=== PATIENT | male | born 1950 | race African-American/Black ===

== ENCOUNTER 2021-11-17 16:05 | Emergency (ER) | payer MEDICARE, SELFPAY ==
--- NOTE | ~2021-11-17 | CT_ITS ---
EXAMINATION: CT brain wo con DATE: 11/17/2021 16:42 INDICATION: Headache TECHNIQUE: Computed tomography (CT) of the head was performed without intravenous contrast. Sagittal and coronal reconstructions were performed. The mA was adjusted according to patient size. Iterative reconstruction technique was employed. The dose-length product was 605.33 mGy-cm. COMPARISON: None FINDINGS: Small region of encephalomalacia consistent with chronic infarct in the anterior periventricular righ t frontal lobe most likely involving the anterior body of the corpus callosum along the cephalad tarun in of the anterior horn of the right lateral ventricle. No acute intracranial hemorrhage, acute infar ction or abnormal extra axial fluid collection. There is mild scattered white matter hypoattenuation consistent with chronic small vessel ischemic disease. Symmetric prominence of the sulci consistent w ith mild age-appropriate diffuse cerebral volume loss. Ventricles are normal and symmetric. No mass/m ass effect. Small amount of dystrophic calcific lesion at the bilateral basal ganglia. Intracranial c alcified cerebral atherosclerosis is noted. Changes of bilateral intraocular lens replacement. The or bits, paranasal sinuses and mastoid air cells are normal. Scarring at the scalp near the vertex were there is a small chronic craniotomy defect. IMPRESSION: 1. No acute intracranial process. 2. 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 3. Age-related changes including mild diffuse volume loss and mild scattered white matter hypoattenua tion consistent with chronic small vessel ischemic disease. 4. Old midline posterior parietal craniotomy. Correlate with surgical history. Reviewed, dictated and finalized at location B. IMPRESSION: 1. No acute intracranial process. 2. 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 3. Age-related changes including mild diffuse volume loss and mild scattered wh ite matter hypoattenuation consistent with chronic small vessel ischemic diseas e. 4. Old midline posterior parietal craniotomy. Correlate with surgical history.
[2021-11-17 16:11] VITALS: BP 117/56; PULSE 73; RESP 18; TEMP 36.4; O2SAT 95
--- NOTE | 2021-11-17 16:32 | ED.HA ---
HPI - Headache General Chief Complaint: Headache Stated Complaint: headache x 4 days Time Seen by Provider: 11/17/21 16:17 History of Present Illness HPI Narrative: 71-year-old male presents the emergency room for evaluation of a headache that he has had for 2 days. Patient states that he started taking metolazone on Tuesday for fluid overload around his abdomen, and developed a headache on Tuesday. Patient describes the headache as a squeezing, bandlike sensation. Headache is associated with photophobia, phonophobia, and nausea. Patient denies injury or trauma. Denies taking any medications to alleviate his headache. Patient states headache started gradually. Denies fever. Denies neck pain. Denies unilateral focal deficits Related Data Allergies Allergy/AdvReac Type Severity Reaction Status Date / Time No Known Allergies Allergy Verified 11/17/21 17:15 Review of Systems Review of Systems: CONSTITUTIONAL: Denies fever, chills, or sweats. EYES: Denies visual changes, redness, or discharge. ENT: Denies rhinorrhea, congestion, sore throat, or otalgia. CARDIOVASCULAR: Denies chest pain, palpitations, or edema. RESPIRATORY: Denies cough or dyspnea. GASTROINTESTINAL: Denies abdominal pain, nausea, vomiting, or diarrhea. GENITOURINARY: Denies dysuria or hematuria. SKIN: Denies rash or itching. MUSCULOSKELETAL: Denies back pain, joint pain, or myalgia. NEUROLOGIC: Reports headache, denies meningeal symptoms PSYCHIATRIC: Denies anxiety or depression. [facility] Family History Family History (Updated 02/21/14 @ 07:13 by DOCTOR UNKNOWN) Mother Family history of osteoporosis Family history of cataracts Family history of Alzheimer's disease Social History Social History Smoking status: Never smoker Second hand tobacco smoke exposure: No Alcohol intake: never Exam Narrative: GENERAL: Well-appearing, well-nourished, and in no acute distress. HEAD: Normocephalic, atraumatic. EYES: PERRLA and EOMI. ENT: Nares clear, no rhinorrhea or epistaxis. CHEST: Clear to auscultation. No respiratory distress. No wheezes rales or rhonchi HEART: Regular rate and rhythm. No murmur heard. Normal peripheral pulses. ABDOMEN: Soft, nontender, nondistended, normal active bowel sounds. EXTREMITIES: Normal range of motion. No edema. SKIN: Warm, dry, no rash. NEURO: No focal deficits. Alert and oriented x3. PSYCH: Normal mood and affect. Course Vital Signs Vital signs: Vital Signs Temperature 36.4 C L 11/17/21 16:11 Pulse Rate 73 11/17/21 16:11 Respiratory Rate 18 11/17/21 16:11 Blood Pressure 117/56 L 11/17/21 16:11 Pulse Oximetry 95 11/17/21 16:11 Oxygen Delivery Room Air 11/17/21 16:11 Temperature 36.4 C L 11/17/21 16:11 Pulse Rate 74 11/17/21 17:17 Respiratory Rate 24 H 11/17/21 17:17 Blood Pressure 114/73 11/17/21 17:17 Pulse Oximetry 95 11/17/21 17:17 Oxygen Delivery Room Air 11/17/21 16:11 MDM - Headache MDM Narrative Medical decision making narrative: 71-year-old male presented to the emergency room complaints of frontal headache started gradually couple of days ago. Patient described the pain as a squeezing and bandlike pain. CBC was unremarkable. CMP shows evidence of a kidney insufficiency, and diabetes. Sed rate was normal. CT scan showed no acute intracranial abnormalities. Patient was given a gram of Tylenol and his headache resolved. Will have patient follow-up with his pr specialist. Lab Data Result diagrams: 11/17/21 17:04 11/17/21 17:04 Labs: Lab Results 11/17/21 11/17/21 11/17/21 Range/Units 17:04 17:04 17:20 WBC 4.5 (4.5-10.0) K/mm3 RBC 5.25 (4.6-6.20) M/mm3 Hgb 14.5 (14.0-18.0) g/dL Hct 46.4 (42.0-52.0) % MCV 88.4 (80-100) fl MCH 27.6 (26-34) pg MCHC 31.3 L (32-36) g/dl RDW 13.2 (11.5-14.5) % Plt Count 162 (150-375) k/mm3 MPV 9.8 (7.4-10.4) fl Immature Gran % (Auto)
[2021-11-17 17:09] LABS: Basophils Percent Auto 0.9 % (0.2-1.2); Eosinophils Absolute Auto 0.2 K/mm3 (0-0.3); Eosinophils Percent Auto 4.2 % (0-4.4); Hematocrit 46.4 % (42.0-52.0); Hemoglobin 14.5 g/dL (14.0-18.0); Immature Granulocyte Absolute 0.02 K/mm3 (0.00-0.031); Immature Granulocyte Percent A 0.4 % (0-0.5); Lymphocytes Absolute Auto 1.22 K/mm3 (0.9-3.2); Lymphocytes Percent Auto 26.9 % (18.3-44.2); Mean Corpuscular HGB Conc 31.3 g/dl (32-36); Mean Corpuscular Hemoglobin 27.6 pg (26-34); Mean Corpuscular Volume 88.4 fl (80-100); Mean Platelet Volume 9.8 fl (7.4-10.4); Monocytes Absolute Auto 0.6 K/mm3 (0.1-0.6); Monocytes Percent Auto 12.1 % (2.6-8.5); Neutrophils Absolute Auto 2.5 K/mm3 (1.3-6.7); Neutrophils Percent Auto 55.5 % (45.5-73.1); Platelet Count Result 162 k/mm3 (150-375); Red Blood Count 5.25 M/mm3 (4.6-6.20); Red Cell Distribution Width 13.2 % (11.5-14.5); White Blood Count 4.5 K/mm3 (4.5-10.0)
[2021-11-17] MEDS: ACETAMINOPHEN 500 MG TABLET 1000 MG PO (17:16)
[2021-11-17 17:17] VITALS: BP 114/73; PULSE 74; RESP 24; O2SAT 95
[2021-11-17 17:19] LABS: Alanine Aminotransferase 21 U/L (6-50); Albumin Level 4.5 g/dL (3.5-5.1); Alkaline Phosphatase 61 U/L (38-126); Anion Gap 8 mmol/L (8-16); Aspartate Amino Transferase 33 U/L (17-59); Blood Urea Nitrogen 30 mg/dL (9-20); Calcium 9.8 mg/dL (8.4-10.2); Carbon Dioxide 36 mmol/L (22-30); Chloride 96 mmol/L (98-107); Estimated CRCL calculation 46 ml/min; Estimated Glomerular Filt Rate 49; Glucose 221 mg/dL (65-110); Potassium 4.5 mmol/L (3.4-5.0); Sodium 140 mmol/L (137-145)
[2021-11-17 17:58] LABS: Erythrocyte Sedimentation Rate 20 mm/hr (0-20)
[2021-11-17 18:21] VITALS: BP 132/75; PULSE 97; RESP 18; O2SAT 95
== END 2021-11-17 18:22 | disposition home or self-care (01) ==
PROVIDERS: Emergency Provider Nurse Practitioner Family; PCP Internal Medicine
DX: R51.9 Headache, unspecified (principal)
CPT/HCPCS: 36415; 70450; 80053; 85025; 85652; 99284; A9270

== ENCOUNTER 2021-12-25 11:11 | Outpatient (CLI) | payer MEDICARE, SELFPAY ==
--- NOTE | ~2021-12-25 | XR_ITS ---
EXAMINATION: XR abdomen/kub 1V INDICATION: Constipation, unspecified TECHNIQUE: Supine views of the abdomen were obtained on 3 radiographs. COMPARISON: None FINDINGS: There is a large volume of colonic stool in the transverse and left colon. No dilated loops of bowel are evident. There is mild osteoarthritis of the hips. Severe lower lumbar spondylosis is n oted. IMPRESSION: 1. Constipation. Reviewed, dictated and finalized at location F. IMPRESSION: 1. Constipation.
== END 2021-12-25 11:12 | disposition home or self-care (01) ==
LOC: ANHIMG 11:13
PROVIDERS: PCP Family Medicine; Visit Provider Nurse Practitioner Family
DX: K59.00 Constipation, unspecified (principal)
CPT/HCPCS: 74018

== ENCOUNTER 2022-01-20 00:56 | Day surgery (SDC) | payer MEDICARE, SELFPAY ==
[2022-01-12 14:19] VITALS: BMI 29.7
--- NOTE | 2022-01-19 11:34 | PC.NURSE ---
Pt. history ie. CHF AND EF 23% reviewed with Dr. Guidry anesthesia. No orders received.
--- NOTE | 2022-01-20 09:19 | WPDANESEPPF ---
Anes - Initial Pre Proc Eval Procedure: Operation Date: 01/20/22 10:30 Proposed Procedures p Esophagogastroduodenoscopy & Colonoscopy - Arpan Fuller MD Date/Time: 01/20/22 09:19 Surgeon: Arpan Fuller MD Pre Op Diagnosis: LUQP, constipation, change bowel habits, bloating Patient Data Age: 71 Gender: M Height: 1.88 m Weight: 105 kg Allergies Allergy/AdvReac Type Severity Reaction Status Date / Time latex Allergy Rash Verified 01/20/22 09:23 Home Medications Medication Instructions Recorded Confirmed Type albuterol sulfate 90 mcg/actuation 1 puff inhalation Q4H PRN 12/24/21 01/12/22 History aerosol inhaler (Ventolin HFA) Shortness Of Breath atorvastatin 20 mg tablet 20 mg PO DAILY 12/24/21 01/12/22 History budesonide-formoterol HFA 160 1 inh inhalation BID 12/24/21 01/12/22 History mcg-4.5 mcg/actuation aerosol inhaler (Symbicort) bumetanide 1 mg tablet 1 mg PO BID 12/24/21 01/12/22 History carvedilol 6.25 mg tablet 6.25 mg PO BID 12/24/21 01/12/22 History clopidogrel 75 mg tablet 75 mg PO DAILY 12/24/21 01/20/22 History insulin aspart U-100 100 unit/mL 15 unit subcut BID 12/24/21 01/12/22 History (3 mL) subcutaneous pen (Novolog Flexpen U-100 Insulin aspart) insulin detemir U-100 100 unit/mL 50 unit subcut QPM 12/24/21 01/12/22 History (3 mL) subcutaneous pen (Levemir FlexTouch U-100 Insulin) isosorbide mononitrate 60 mg 60 mg PO DAILY 12/24/21 01/12/22 History tablet,extended release 24 hr latanoprost 0.005 % eye drops 1 drp EACH EYE QPM 12/24/21 01/12/22 History levetiracetam 1,000 mg tablet 1,000 mg PO BID 12/24/21 01/12/22 History lisinopril 10 mg tablet 10 mg PO BID 12/24/21 01/12/22 History meloxicam 7.5 mg tablet 7.5 mg PO DAILY 12/24/21 01/12/22 History metoclopramide HCl 10 mg tablet 10 mg PO TIDWMEAL 12/24/21 01/12/22 History metolazone 2.5 mg tablet 2.5 mg PO DAILY 12/24/21 01/12/22 History prucalopride 2 mg tablet 2 mg PO DAILY 1 month #30 tabs 12/25/21 01/12/22 Rx (Motegrity) spironolactone 25 mg tablet 25 mg PO BID #180 tabs 01/11/22 01/12/22 Rx cholecalciferol (vitamin D3) 50 50 mcg PO DAILY 01/12/22 01/12/22 History mcg (2,000 unit) tablet (Vitamin D3) potassium chloride 20 mEq 20 meq PO BID 01/12/22 01/12/22 History tablet,extended release(part/cryst) (Klor-Con M) tiotropium 2.5 mcg-olodaterol 2.5 1 puff inhalation DAILY PRN 01/12/22 01/12/22 History mcg/actuation mist for inhalation Shortness Of Breath (Stiolto Respimat) Patient hx anesthesia problems: none Family hx anesthesia problems: none Results Review: All pre-operative results and documents have been reviewed as part of the pre-operative evaluation. [facility] Past Medical History Medical History (Updated 01/20/22 @ 09:20 by Ankur Min MD) CHF (congestive heart failure) Constipation COPD (chronic obstructive pulmonary disease) Dementia Dyslipidemia Essential (primary) hypertension IDDM (insulin dependent diabetes mellitus) Obese PERI on CPAP Osteoarthritis Prostate CA Seizures Weight loss Surgical History Surgical History History of back surgery (~2011) History of permanent cardiac pacemaker placement (~2014) S/P TAVR (transcatheter aortic valve replacement) (~2014) Family History Family History Mother Family history of osteoporosis Family history of cataracts Family history of Alzheimer's disease Father Hypertension Sibling Heart problem Unknown Hypertension Social History Social History Smoking status: Never smoker Second hand tobacco smoke exposure: No Alcohol intake: current Substance use: never Substance use type: does not use Living arrangements: with family Gender identity (if verbalized by the patient): Male Sexual Orientation (if Verbalized by the Patient): S
[2022-01-20 09:27] VITALS: BP 162/84; PULSE 103; RESP 18; TEMP 36.6; O2SAT 96
[2022-01-20 09:41] LABS: Glucose Point of Care 226 mg/dl (65-105)
[2022-01-20] MEDS: LACTATED RINGERS 1,000 ML 150 ML IV CONT (09:45)
[2022-01-20] MEDS: GENTAMICIN 80MG/SOD CHL 50 ML 80 MG/50 ML BAG 100 MG IVPB (09:46)
--- NOTE | 2022-01-20 09:47 | SUR.PREOP ---
NOTIFIED DR. RAMOS OF 226 BG. NO NEW ORDERS AT THIS TIME.
[2022-01-20] MEDS: AMPICILLIN 2 GM/NS 100 ML 2 GM/100 ML BAG IVPB (09:55)
--- NOTE | 2022-01-20 10:07 | PM.HPGS ---
History of Present Illness History of Present Illness Consent: Risks, benefits, and alternatives have been discussed and questions answered. Patient agrees to proceed with procedure. Chief complaint: LUQP, constipation, change bowel habits, bloating Narrative: Ceferino Prescott is a 71 year old male Was had a dramatic change in bowel habits. He has also had weight loss, Although he states he has been trying to. He also has chronic discomfort in the upper abdomen. He will rarely see blood in his stools, perhaps once a year. Review of Systems Review of Systems: All systems reviewed & are unremarkable except as noted in HPI and below PMFSH Past Medical History Medical History CHF (congestive heart failure) Constipation COPD (chronic obstructive pulmonary disease) Dementia Dyslipidemia Essential (primary) hypertension IDDM (insulin dependent diabetes mellitus) Obese PERI on CPAP Osteoarthritis Prostate CA Seizures Weight loss Surgical History Surgical History History of back surgery (~2011) History of permanent cardiac pacemaker placement (~2014) S/P TAVR (transcatheter aortic valve replacement) (~2014) Family History Family History Mother Family history of osteoporosis Family history of cataracts Family history of Alzheimer's disease Father Hypertension Sibling Heart problem Unknown Hypertension Social History Social History Smoking status: Never smoker Second hand tobacco smoke exposure: No Alcohol intake: current Substance use: never Substance use type: does not use Living arrangements: with family Gender identity (if verbalized by the patient): Male Sexual Orientation (if Verbalized by the Patient): Straight or Heterosexual Spiritual care concerns: No Agree to blood products: Yes Meds Home Medications and Allergies Home Medications Medication Instructions Recorded Confirmed Type albuterol sulfate 90 mcg/actuation 1 puff inhalation Q4H PRN 12/24/21 01/12/22 History aerosol inhaler (Ventolin HFA) Shortness Of Breath atorvastatin 20 mg tablet 20 mg PO DAILY 12/24/21 01/12/22 History budesonide-formoterol HFA 160 1 inh inhalation BID 12/24/21 01/12/22 History mcg-4.5 mcg/actuation aerosol inhaler (Symbicort) bumetanide 1 mg tablet 1 mg PO BID 12/24/21 01/12/22 History carvedilol 6.25 mg tablet 6.25 mg PO BID 12/24/21 01/12/22 History clopidogrel 75 mg tablet 75 mg PO DAILY 12/24/21 01/20/22 History insulin aspart U-100 100 unit/mL 15 unit subcut BID 12/24/21 01/12/22 History (3 mL) subcutaneous pen (Novolog Flexpen U-100 Insulin aspart) insulin detemir U-100 100 unit/mL 50 unit subcut QPM 12/24/21 01/12/22 History (3 mL) subcutaneous pen (Levemir FlexTouch U-100 Insulin) isosorbide mononitrate 60 mg 60 mg PO DAILY 12/24/21 01/12/22 History tablet,extended release 24 hr latanoprost 0.005 % eye drops 1 drp EACH EYE QPM 12/24/21 01/12/22 History levetiracetam 1,000 mg tablet 1,000 mg PO BID 12/24/21 01/12/22 History lisinopril 10 mg tablet 10 mg PO BID 12/24/21 01/12/22 History meloxicam 7.5 mg tablet 7.5 mg PO DAILY 12/24/21 01/12/22 History metoclopramide HCl 10 mg tablet 10 mg PO TIDWMEAL 12/24/21 01/12/22 History metolazone 2.5 mg tablet 2.5 mg PO DAILY 12/24/21 01/12/22 History prucalopride 2 mg tablet 2 mg PO DAILY 1 month #30 tabs 12/25/21 01/12/22 Rx (Motegrity) spironolactone 25 mg tablet 25 mg PO BID #180 tabs 01/11/22 01/12/22 Rx cholecalciferol (vitamin D3) 50 50 mcg PO DAILY 01/12/22 01/12/22 History mcg (2,000 unit) tablet (Vitamin D3) potassium chloride 20 mEq 20 meq PO BID 01/12/22 01/12/22 History tablet,extended release(part/cryst) (Klor-Con M) tiotropium 2.5 mcg-olodaterol 2.5 1 puff inhalation DAILY PRN
[2022-01-20 10:48] VITALS: BP 128/79; PULSE 77; RESP 22; O2SAT 100
[2022-01-20 10:58] VITALS: BP 106/79; PULSE 77; RESP 21; O2SAT 100
[2022-01-20 11:08] VITALS: BP 131/86; PULSE 80; RESP 22; O2SAT 100
--- NOTE | 2022-01-20 14:29 | SUR.OPER ---
[address] Fuller aware. States will write orders for patient at d/c.
== END 2022-01-20 11:17 | disposition home or self-care (01) ==
PROVIDERS: PCP Family Medicine; Visit Provider Internal Medicine Gastroenterology
PROC: 0DJ08ZZ Inspection of Upper Intestinal Tract, Via Natural or Artificial Opening Endoscopic (ICD-10-PCS; CPT 43235; principal; 2022-01-20 10:30)
DX: R10.13 Epigastric pain (principal); R10.31 Right lower quadrant pain; I50.9 Heart failure, unspecified; K21.9 Gastro-esophageal reflux disease without esophagitis; K29.70 Gastritis, unspecified, without bleeding; R19.4 Change in bowel habit; K64.8 Other hemorrhoids; R14.0 Abdominal distension (gaseous); R10.32 Left lower quadrant pain; J44.9 Chronic obstructive pulmonary disease, unspecified; E11.9 Type 2 diabetes mellitus without complications; G47.33 Obstructive sleep apnea (adult) (pediatric); M19.90 Unspecified osteoarthritis, unspecified site; Z85.9 Personal history of malignant neoplasm, unspecified; Z95.2 Presence of prosthetic heart valve; Z79.4 Long term (current) use of insulin; Z79.51 Long term (current) use of inhaled steroids
CPT/HCPCS: 43239; 45378; 82948; 87081; J0290; J1580; J2704; J7120

== ENCOUNTER 2022-02-09 14:49 | Outpatient (CLI) | payer MEDICARE, SELFPAY ==
[2022-02-09 20:52] LABS: Alanine Aminotransferase 24 U/L (6-50); Albumin Level 4.4 g/dL (3.5-5.1); Alkaline Phosphatase 59 U/L (38-126); Anion Gap 9 mmol/L (8-16); Aspartate Amino Transferase 38 U/L (17-59); Bilirubin,Total 0.7 mg/dL (0.2-1.3); Blood Urea Nitrogen 71 mg/dL (9-20); Calcium 9.7 mg/dL (8.4-10.2); Carbon Dioxide 36 mmol/L (22-30); Chloride 90 mmol/L (98-107); Cholesterol 211 mg/dL (0-200); Estimated Glomerular Filt Rate 25; Glucose 109 mg/dL (65-110); HDL Direct 43 mg/dL; Potassium 5.6 mmol/L (3.4-5.0); Sodium 135 mmol/L (137-145); Triglycerides 258 mg/dL (<150)
[2022-02-09 20:55] LABS: Basophils Absolute Auto 0.1 K/mm3 (0.0-0.1); Basophils Percent Auto 0.9 % (0.2-1.2); Eosinophils Absolute Auto 0.3 K/mm3 (0-0.3); Eosinophils Percent Auto 4.9 % (0-4.4); Hematocrit 37.8 % (42.0-52.0); Hemoglobin 12.1 g/dL (14.0-18.0); Immature Granulocyte Absolute 0.02 K/mm3 (0.00-0.031); Immature Granulocyte Percent A 0.4 % (0-0.5); Lymphocytes Absolute Auto 1.43 K/mm3 (0.9-3.2); Lymphocytes Percent Auto 26.7 % (18.3-44.2); Mean Corpuscular Hemoglobin 27.9 pg (26-34); Mean Corpuscular Volume 87.3 fl (80-100); Monocytes Absolute Auto 0.7 K/mm3 (0.1-0.6); Monocytes Percent Auto 12.3 % (2.6-8.5); Neutrophils Absolute Auto 2.9 K/mm3 (1.3-6.7); Neutrophils Percent Auto 54.8 % (45.5-73.1); Platelet Count Result 169 k/mm3 (150-375); Red Blood Count 4.33 M/mm3 (4.6-6.20); Red Cell Distribution Width 13.6 % (11.5-14.5); White Blood Count 5.4 K/mm3 (4.5-10.0)
[2022-02-09 21:03] LABS: LDL Cholesterol Direct 101 mg/dL
[2022-02-09 21:11] LABS: Creatinine Urine 67.1 mg/dL
[2022-02-09 21:18] LABS: Vitamin D 25 Hydroxy 53.2 ng/mL
[2022-02-09 21:21] LABS: Prostate Specific Antigen 0.2 ng/mL (< OR = 4.0)
[2022-02-09 21:33] LABS: MALB Creatinine Ratio < 8.9 mg/g (0-30); Microalbumin Urine Random < 6.0 mg/L (0-16.7)
[2022-02-09 21:53] LABS: Hemoglobin A1C 9.1 % (<5.7)
== END 2022-02-09 14:50 | disposition home or self-care (01) ==
LOC: ANHGOSHLAB 14:52
PROVIDERS: PCP Family Medicine; Visit Provider Family Medicine
DX: Z00.00 Encounter for general adult medical examination without abnormal findings (principal); I10 Essential (primary) hypertension; E11.9 Type 2 diabetes mellitus without complications; I50.9 Heart failure, unspecified; K31.84 Gastroparesis; R19.4 Change in bowel habit; R56.9 Unspecified convulsions; Z12.5 Encounter for screening for malignant neoplasm of prostate; E78.5 Hyperlipidemia, unspecified; E55.9 Vitamin D deficiency, unspecified; E53.8 Deficiency of other specified B group vitamins
CPT/HCPCS: 36415; 80053; 80061; 82043; 82306; 82607; 83036; 84153; 84443; 85025; G0103

== ENCOUNTER 2022-03-04 10:18 | Outpatient (CLI) | payer MEDICARE, SELFPAY ==
[2022-03-04 19:06] LABS: Appearance Urine Clear (Clear); Bilirubin Urine Negative (Negative); Blood Urine Negative (Negative); Glucose Urine UA Negative (Negative); Ketones Urine Negative (Negative); Leukocyte Esterase Ur Negative LEU/UL (NEGATIVE); Nitrate Urine Negative (Negative); Protein Urine Negative (Negative); Specific Grav Ur 1.015 (1.001-1.035); Urobilinogen Urine 0.2 mg/dL (<2.0)
[2022-03-04 19:07] LABS: Add Urine Microscopic? NO; Color Urine Light Yellow (Yellow)
[2022-03-04 19:55] LABS: Complement C3 122 mg/dL (88-165)
[2022-03-04 19:59] LABS: Albumin Level 4.5 g/dL (3.5-5.1); Anion Gap 13 mmol/L (8-16); Blood Urea Nitrogen 22 mg/dL (9-20); Calcium 9.2 mg/dL (8.4-10.2); Carbon Dioxide 31 mmol/L (22-30); Chloride 97 mmol/L (98-107); Estimated Glomerular Filt Rate 56; Glucose 87 mg/dL (65-110); Phosphorus 3.2 mg/dL (2.5-4.5); Potassium 4.4 mmol/L (3.4-5.0); Sodium 141 mmol/L (137-145)
[2022-03-04 20:01] LABS: Erythrocyte Sedimentation Rate 22 mm/hr (0-20)
[2022-03-04 20:03] LABS: Hematocrit 32.6 % (42.0-52.0); Hemoglobin 10.6 g/dL (14.0-18.0); Mean Corpuscular HGB Conc 32.5 g/dl (32-36); Mean Corpuscular Hemoglobin 28.2 pg (26-34); Mean Corpuscular Volume 86.7 fl (80-100); Mean Platelet Volume 10.6 fl (7.4-10.4); Platelet Count Result 191 k/mm3 (150-375); Red Blood Count 3.76 M/mm3 (4.6-6.20); Red Cell Distribution Width 14.1 % (11.5-14.5); White Blood Count 4.6 K/mm3 (4.5-10.0)
[2022-03-04 21:41] LABS: Creatinine Urine 48.4 mg/dL; Total Protein Urine Random 8 mg/dL; Ur Ttl Prot Creatinine Ratio 0.17 mg/mg (0-0.20)
[2022-03-07 16:34] LABS: Kappa\\Lambda Light Chains 2.48 (0.26-1.65); Lambda Light Chain 13.2 mg/L (5.7-26.3)
[2022-03-09 19:45] LABS: Complement Total CH50 >60 U/mL (31-60)
== END 2022-03-04 10:19 | disposition home or self-care (01) ==
LOC: ANHGOSHLAB 10:22
PROVIDERS: PCP Family Medicine; Visit Provider Internal Medicine Nephrology
DX: R94.4 Abnormal results of kidney function studies (principal)
CPT/HCPCS: 36415; 80069; 81003; 82570; 83883; 84156; 85027; 85652; 86038; 86160; 86162; 86334

== ENCOUNTER → 2022-03-04 10:56 | Outpatient (CLI) | payer MEDICARE, SELFPAY ==
--- NOTE | ~2022-03-04 | US_ITS ---
EXAMINATION: US renal BI DATE: 03/04/2022 12:20 INDICATION: Abnormal result of kidney function. TECHNIQUE: Multiple ultrasound grayscale images of the kidneys were obtained. COMPARISON: None. FINDINGS: The right kidney measures 11.0 x 4.6 x 4.8 cm. The left kidney measures 10.6 x 5.1 x 5.4 cm. The kidn eys demonstrate normal echogenicity. There is no hydronephrosis in either kidney. No stones identifi ed. The bladder appears normal but is incompletely distended which mildly limits evaluation. IMPRESSION: 1. Normal kidneys without hydronephrosis. Reviewed, dictated and finalized at location A.
== END ==
PROVIDERS: PCP Internal Medicine Nephrology; Visit Provider Internal Medicine Nephrology
DX: R94.4 Abnormal results of kidney function studies (principal)
CPT/HCPCS: 76775

== ENCOUNTER 2022-03-09 09:54 | Outpatient (CLI) | payer MEDICARE, SELFPAY ==
[2022-03-14 16:42] LABS: Albumin 37 %; Measured Kappa Chains <1.00 mg/dL (<2.00); Measured Lambda Chains <1.00 mg/dL (<2.00)
== END 2022-03-09 09:55 | disposition home or self-care (01) ==
LOC: ANHLAB 10:04
PROVIDERS: PCP Internal Medicine Nephrology; Visit Provider Internal Medicine Nephrology
DX: A04.8 Other specified bacterial intestinal infections (principal)
CPT/HCPCS: 86335

== ENCOUNTER → 2022-07-08 16:09 | Outpatient (CLI) | payer OTHER, SELFPAY ==
--- NOTE | ~2022-07-08 | XR_ITS ---
XR lumbar spine min 4V DATE: 07/08/2022 16:34 INDICATION: Back pain. History of falling. TECHNIQUE: AP, lateral, bilateral oblique views, coned lateral lumbosacral view COMPARISON: 09/01/2018 CT lumbar spine 12/07/2013 MRI lumbar spine FINDINGS: Diffuse idiopathic skeletal hyperostosis of the thoracic spine. Prominent degenerative santana ges of the dose at the apophyseal joints of the lower lumbar and lumbosacral area with associated gra de 1 anterolisthesis at L4-5. There is minimal degenerative spurring of the lumbar spine. No fracture or bone destruction is eviden t. The lumbar pedicles are intact. No spondylolisthesis. The sacroiliac joints are normal. There is extensive calcification of the abdominal aorta and iliac arteries; no abdominal aortic aneur ysm. IMPRESSION: Diffuse idiopathic skeletal hyperostosis of the thoracic spine Grade 1 anterolisthesis at L4-5 due to degenerative change at the apophyseal joints Reviewed, dictated and finalized at location A. NCIAL ANALYST IMPRESSION: Diffuse idiopathic skeletal hyperostosis of the thoracic spine Grade 1 anterolisthesis at L4-5 due to degenerative change at the apophyseal janina ints
== END ==
PROVIDERS: PCP Family Medicine; Visit Provider Family Medicine
DX: M48.14 Ankylosing hyperostosis [Forestier], thoracic region (principal); M43.06 Spondylolysis, lumbar region; Z51.81 Encounter for therapeutic drug level monitoring
CPT/HCPCS: 72110

== ENCOUNTER 2023-01-11 14:11 | Outpatient (CLI) | payer OTHER, SELFPAY ==
[2023-01-11 20:31] LABS: Basophils Absolute Auto 0.1 K/mm3 (0.0-0.1); Basophils Percent Auto 1.1 % (0.2-1.2); Eosinophils Absolute Auto 0.3 K/mm3 (0-0.3); Eosinophils Percent Auto 6.7 % (0-4.4); Hematocrit 37.1 % (42.0-52.0); Hemoglobin 11.2 g/dL (14.0-18.0); Immature Granulocyte Absolute 0.01 K/mm3 (0.00-0.031); Immature Granulocyte Percent A 0.2 % (0-0.5); Lymphocytes Absolute Auto 1.07 K/mm3 (0.9-3.2); Lymphocytes Percent Auto 22.5 % (18.3-44.2); Mean Corpuscular HGB Conc 30.2 g/dl (32-36); Mean Corpuscular Hemoglobin 27.1 pg (26-34); Mean Corpuscular Volume 89.6 fl (80-100); Mean Platelet Volume 10.7 fl (7.4-10.4); Monocytes Absolute Auto 0.5 K/mm3 (0.1-0.6); Monocytes Percent Auto 10.7 % (2.6-8.5); Neutrophils Absolute Auto 2.8 K/mm3 (1.3-6.7); Neutrophils Percent Auto 58.8 % (45.5-73.1); Platelet Count Result 190 k/mm3 (150-375); Red Blood Count 4.14 M/mm3 (4.6-6.20); Red Cell Distribution Width 12.7 % (11.5-14.5); White Blood Count 4.8 K/mm3 (4.5-10.0)
[2023-01-11 20:49] LABS: Albumin Level 4.2 g/dL (3.5-5.1); Anion Gap 5 mmol/L (8-16); Blood Urea Nitrogen 19 mg/dL (9-20); Calcium 9.5 mg/dL (8.4-10.2); Carbon Dioxide 38 mmol/L (22-30); Chloride 97 mmol/L (98-107); Estimated Glomerular Filt Rate 52; Glucose 198 mg/dL (65-110); Phosphorus 3.9 mg/dL (2.5-4.5); Potassium 3.9 mmol/L (3.4-5.0); Sodium 140 mmol/L (137-145)
[2023-01-11 23:12] LABS: Parathyroid Intact 66.8 pg/mL (7.5-53.5)
== END 2023-01-11 14:12 | disposition home or self-care (01) ==
LOC: ANHGOSHLAB 14:13
PROVIDERS: PCP Family Medicine; Visit Provider Internal Medicine Nephrology
DX: N18.32 Chronic kidney disease, stage 3b (principal)
CPT/HCPCS: 36415; 80069; 83970; 85025

== ENCOUNTER 2023-01-12 08:53 | Outpatient (NON) | payer OTHER, SELFPAY ==
[2023-01-12 15:18] LABS: Creatinine Urine 95.8 mg/dL; Total Protein Urine Random 9 mg/dL; Ur Ttl Prot Creatinine Ratio 0.09 mg/mg (0-0.20)
== END 2023-01-12 08:54 | disposition home or self-care (01) ==
LOC: ANHGOSHLAB 09:05
PROVIDERS: PCP Family Medicine; Visit Provider Internal Medicine Nephrology
DX: N18.32 Chronic kidney disease, stage 3b (principal)
CPT/HCPCS: 82570; 84156

== ENCOUNTER 2023-08-02 14:01 | Outpatient (CLI) | payer OTHER, SELFPAY ==
[2023-08-02 20:06] LABS: Alanine Aminotransferase 17 U/L (6-50); Albumin Level 4.3 g/dL (3.5-5.1); Alkaline Phosphatase 63 U/L (38-126); Anion Gap 4 mmol/L (8-16); Aspartate Amino Transferase 52 U/L (17-59); Bilirubin,Total 0.8 mg/dL (0.2-1.3); Blood Urea Nitrogen 11 mg/dL (9-20); Calcium 10.5 mg/dL (8.4-10.2); Carbon Dioxide 33 mmol/L (22-30); Chloride 102 mmol/L (98-107); Cholesterol 180 mg/dL (0-200); Estimated Glomerular Filt Rate > 60; Glucose 105 mg/dL (65-110); HDL Direct 75 mg/dL; Potassium 4.7 mmol/L (3.4-5.0); Sodium 139 mmol/L (137-145); Triglycerides 120 mg/dL (<150)
[2023-08-02 20:16] LABS: Vitamin D 25 Hydroxy 39.3 ng/mL
[2023-08-02 20:18] LABS: Basophils Absolute Auto 0.1 K/mm3 (0.0-0.1); Basophils Percent Auto 1.1 % (0.2-1.2); Eosinophils Absolute Auto 0.3 K/mm3 (0-0.3); Eosinophils Percent Auto 5.9 % (0-4.4); Hematocrit 43.1 % (42.0-52.0); Hemoglobin 13.1 g/dL (14.0-18.0); Immature Granulocyte Absolute 0.01 K/mm3 (0.00-0.031); Immature Granulocyte Percent A 0.2 % (0-0.5); Lymphocytes Absolute Auto 1.33 K/mm3 (0.9-3.2); Lymphocytes Percent Auto 30.2 % (18.3-44.2); Mean Corpuscular HGB Conc 30.4 g/dl (32-36); Mean Corpuscular Volume 88.9 fl (80-100); Mean Platelet Volume 9.9 fl (7.4-10.4); Monocytes Absolute Auto 0.6 K/mm3 (0.1-0.6); Monocytes Percent Auto 12.5 % (2.6-8.5); Neutrophils Absolute Auto 2.2 K/mm3 (1.3-6.7); Neutrophils Percent Auto 50.1 % (45.5-73.1); Platelet Count Result 217 k/mm3 (150-375); Red Blood Count 4.85 M/mm3 (4.6-6.20); Red Cell Distribution Width 13.7 % (11.5-14.5); White Blood Count 4.4 K/mm3 (4.5-10.0)
[2023-08-02 20:19] LABS: LDL Cholesterol Direct 70 mg/dL
[2023-08-02 20:36] LABS: Prostate Specific Antigen 0.3 ng/mL (< OR = 4.0)
== END 2023-08-02 14:02 | disposition home or self-care (01) ==
LOC: ANHGOSHLAB 14:02
PROVIDERS: PCP Family Medicine; Visit Provider Family Medicine
DX: Z12.5 Encounter for screening for malignant neoplasm of prostate (principal); I10 Essential (primary) hypertension; E78.5 Hyperlipidemia, unspecified; E55.9 Vitamin D deficiency, unspecified; E53.8 Deficiency of other specified B group vitamins; J44.9 Chronic obstructive pulmonary disease, unspecified
CPT/HCPCS: 36415; 80053; 80061; 82306; 82607; 84153; 84443; 85025; G0103

== ENCOUNTER → 2023-08-02 14:15 | Outpatient (CLI) | payer OTHER, SELFPAY ==
--- NOTE | ~2023-08-02 | XR_ITS ---
EXAMINATION: XR thoracic spine 3V DATE: 08/02/2023 14:44 INDICATION: Thoracic back pain TECHNIQUE: AP, lateral and lateral swimmer's views of the thoracic spine were obtained. COMPARISON: None. FINDINGS: Bone alignment is normal. There is no fracture. The vertebral body heights are maintained. There is mild loss of intervertebral disc space height at multiple levels in the thoracic spine. Brid ging anterior endplate osteophytes are noted in the mid and lower thoracic spine. Changes of endolumi nal aortic valve replacement are noted. A dual-lead cardiac pacemaker of the left chest wall ends wit h leads in expected locations. IMPRESSION: 1. Mild to moderate thoracic spondylosis without acute findings. Reviewed, dictated and finalized at location B. AULIC OPERATOR
--- NOTE | ~2023-08-02 | XR_ITS ---
EXAMINATION: XR lumbar spine min 4V DATE: 08/02/2023 14:44 INDICATION: Low back pain TECHNIQUE: Anteroposterior, lateral, and bilateral oblique views of the lumbar spine, and cone-down l ateral view of the lumbosacral junction were obtained. COMPARISON: 07/08/2022 FINDINGS: There are 4 mm of unchanged anterolisthesis of L4 on L5. Vertebral body alignment is otherw ise normal. The vertebral body heights are maintained. There is mild loss of intervertebral disc spac e height throughout the lumbar spine. There is severe bilateral facet joint osteoarthritis at L4-5 an d L5-S1 and moderate facet joint osteoarthritis throughout the remainder of the lumbar spine. Calcifi ed atherosclerosis is noted. There is no fracture. IMPRESSION: 1. Moderate lumbar spondylosis without acute findings or significant interval change. Reviewed, dictated and finalized at location B. ORATE TUTOR IMPRESSION: 1. Moderate lumbar spondylosis without acute findings or significant interval c armen.
== END ==
PROVIDERS: PCP Family Medicine; Visit Provider Family Medicine
DX: M43.06 Spondylolysis, lumbar region (principal); M43.04 Spondylolysis, thoracic region
CPT/HCPCS: 72072; 72110

== ENCOUNTER 2025-02-13 10:54 | Outpatient (CLI) | payer OTHER, SELFPAY ==
--- OUTSIDE RECORDS SUMMARY | 2025-02-12 12:30 | XMS_ITS | Encounter Summary ---
Author Organization [facility] Address [address] [place] [address] Phone Care Team Providers Care Sanitary Plumber Name Role Phone Contreras Robbins MD Unavailable [phone] [facility] MD PhD Unavailable [phone] Santiago Bey MD Primary Care Provider Fransisca Macedo RN Unavailable Unavailabl e Reason for Referral * Cardiology (Routine) - Pending Review Specialty Diagnoses / Procedures Referred By Contac t Referred To Contact Diagnoses CHB (complete heart block) Fitting or adjustment of cardiac pacemaker Procedures DEVICE CHECK [place] [address] [place] [address] [address] [place] [address] Phone: tel: fax: [facility] [address] [place] [address] [facility] [address] [place] [address] [place] [address] Phone: tel: fax: Referral ID Status Reason Start Date Expiration Date V isits Requested Visits Authorized [id number] Pending Review 02/12/2025 03/14/2026 1 1 Reason for Visit * Cardiology (Routine) - Authorized Specialty Diagnoses / Procedures Referred By Contac t Referred To Contact Diagnoses CHB (complete heart block) Fitting or adjustment of cardiac pacemaker Procedures DEVICE CHECK [place] [address] [place] [address] [address] [place] [address] Phone: tel: fax: [facility] [address] [place] [address] [address] [place] [address] [place] [address] Phone: tel: fax: Referral ID Status Reason Start Date Expiration Date V isits Requested Visits Authorized [id number] Authorized 08/14/2024 09/13/2025 12 12 Encounter Details Date Type Department Care Team (Latest Contact Info) Description 02/12/2025 12:30 PM CDT Ancillary Procedure [facility] [address] [place] [address] 8[address] [place] [address] [place] [address] CHB (complete heart block) (Primary Dx); Fitting or adjustment of cardiac pacemaker Social History Tobacco Use Types Packs/Day Years Used Date Smoking Tobacco: Never Smokeless Tobacco: Never Alcohol Use Standard Drinks/Week Comments Yes 1 (1 standard drink = 0.6 oz pur e alcohol) AUDIT-C Answer Date Recorded Q1: How often do you have a drink containing alc ohol? Monthly or less 09/23/2020 Q2: How many drinks containi ng alcohol do you have on a typical day when you are drinking? 1 or 2 09/23/2020 Q3: How often do you have si x or more drinks on one occasion? 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 Gender Identity Not on file Sexual Orientation Not on file documented as of this encounter Plan of Treatment Pending Results Name Type Priority Associated Diagnoses Date /Time DEVICE CHECK - IN OFFICE Cardiac Services Routine CHB (complete heart block) Fitting or adjustment of cardiac pacemaker 02/12/2025 11:24 AM CDT Scheduled Orders Name Type Priority Associated Diagnoses Orde r Schedule DEVICE CHECK - IN OFFICE Cardiac Services Routine CHB (complete heart block) Fitting or adjustment of cardiac pacemaker Expected: 02/12/2026 (Approximate), Expires: 08/15/2026 documented as of this encounter Visit Diagnoses Diagnosis CHB (complete heart block)- Primary Atrioventricular block, complete Fitting or adjustment of cardiac pacemaker Fitting and adjustment of cardiac pacemaker documented in this encounter Care Teams Sanitary Plumber Relationship Specialty Start Date End Date Santiago Bey MD [address] [place] [address] PCP - General Family Practice 01/05/22 Contreras Robbins MD Referring Physician Pulmonary Disease 01/16/19 Allyson Flood MD PhD [address] [place] [address] Consulting Physician Ophthalmology 10/03/20 Fransisca Macedo, RN Registered Nurse Pulmonary Disease 04/06/23 documented as of this encounter
--- OUTSIDE RECORDS SUMMARY | 2025-02-12 13:00 | XMS_ITS | Encounter Summary ---
Author Organization [facility] Address [address] [place] [address] Phone Care Team Providers Care Phototypesetting Equipment Monitor Name Role Phone Contreras Robbins MD Unavailable [phone] [facility] MD PhD Unavailable [phone] Santiago Bey MD Primary Care Provider Fransisca Macedo RN Unavailable Unavailabl e Reason for Visit * Cardiology (Routine) - Authorized Specialty Diagnoses / Procedures Referred By Contac t Referred To Contact Diagnoses CHB (complete heart block) Fitting or adjustment of cardiac pacemaker Procedures DEVICE CHECK - IN OFFICE Samir Cao MD [address] [facility] [address] [place] [id number] Phone: tel: fax: [facility] Medicine Cardiology [address] [facility] 8th [place] [address] [place] [address] Phone: tel: fax: Referral ID Status Reason Start Date Expiration Date V isits Requested Visits Authorized [id number] Authorized 08/14/2024 09/13/2025 12 12 Encounter Details Date Type Department Care Team (Late st Contact Info) Description 02/12/2025 1:00 PM CDT Office Visit [facility] Medicine Cardiology [address] 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 Gender Identity Not on file Sexual Orientation Not on file documented as of this encounter Last Filed Vital Signs Vital Sign Reading Time Taken Comments Blood Pressure 154/81 02/12/2025 12:37 PM CDT Pulse 60 02/12/2025 12:37 PM CDT Temperature - - Respiratory Rate - - Oxygen Saturation 98% 02/12/2025 12:37 PM CDT Inhaled Oxygen Concentration - - Weight 84.6 kg (186 lb 9.6 oz) 02/12/2025 12:37 PM CDT Height 182.9 cm (6') 02/12/2025 12:37 PM CDT Body Mass Index 25.31 02/12/2025 12:37 PM CDT documented in this encounter Patient Instructions * Patient Instructions* Natalie Maher NP - 02/12/2025 1:00 PM CDT Labs today Your device checks out well Continue remote monitoring quarterly Follow up in 6 months with device check, sooner as needed documented in this encounter Ordered Prescriptions Prescription Sig Dispense Quantity Refills Last Filled Start Date End Date amiodarone (PACERONE) 200 mg tablet Take 1 tablet (200 mg total) by mouth daily 30 tablet 5 02/12/2025 08/11/2025 documented in this encounter Progress Notes * Natalie Maher, LAUNCH LEADER - 02/12/2025 1:00 PM CDT Electrophysiology Return Office Visit Patient Name: Ceferino Prescott Date of : 1950 Date of Visit: 02/12/2025 CHIEF COMPLAINT: PVC Ceferino Prescott is a 74 y.o. male who presents today at the [facility] at [facility] in [place] for arrhythmia/device follow up. The patient's info print press operator is Dr. Samir Cao. Mr. Prescott is seen in follow up for complete heart block status post TAVR. He underwent TAVR for severe on 09/02/2016. He developed a left bundle branch block and subsequent complete heart block. A dual-chamber pacemaker was implanted on 09/02/[address] Cao. Echocardiogram 11/18/21 showed an LVEF of 22% despite GDMT (echo 06/2021 showed an LVEF of 35-40%). He was admitted to [facility] in 10/2021 for shortness of breath and headache. He was diuresed, evaluated by neurology, CT imaging indicated no acute changes. MRI was recommended. He is on goal directed therapy. Last EKG showed a QRS of 164 msec. He was seen in clinic on 05/11/22. We had an extended discussion about his risk for sudden cardiac . ICD recommended for primary prevention of sudden cardiac . DIAL MAKER-D would be appropriate inthe setting of HF symptoms and widened QRS. He declined ICD upgrade. He is aware of his sudden cardiac risk. He also declined DIAL MAKER-P upgrade. He reported increased fatigue and exertional dyspnea in the fall 2023. LVEF 30% per TTE 08/30/2023. Holter 03/2024 showed 25% PVC burden. We discussed management options for his PVCs including amiodarone 200 mg daily or catheter ablation. He is not interested in any invasive procedures, but would like to try amiodarone 200 mg daily given increased symptoms of SOB and fatigue. He presents today in follow up with his . His palpitations have improved since starting amiodarone. He continues to report headache as his biggest complaint; he believes it is associated with a new medication started by neurology. He reports stable SOB and occasional palpitations. He denies abdo angeline distention or lower extremity swelling. No near syncope or syncope. Eye exam earlier this month was normal. CURRENT MEDICATIONS: Current Outpatient Medications: albuterol HFA (PROVENTIL HFA,VENTOLIN HFA,PROAIR HFA) 90 mcg/actuation inhaler amiodarone (PACERONE) 200 mg tablet aspirin 81 mg enteric coated tablet atorvastatin (LIPITOR) 20 mg tablet azelastine (ASTELIN) 137 mcg (0.1 %) nasal spray blood glucose diagnostic (IPXuch Ultra Test) strip blood-glucose meter kit bumetanide (BUMEX) 1 mg tablet carvediloL (COREG) 12.5 mg tablet cholecalciferol (VITAMIN D-3) 2000 unit capsule clopidogreL (PLAVIX) 75 mg tablet cyanocobalamin (Vitamin B-12) 1,000 mcg/mL injection dapagliflozin propanediol (FARXIGA) 10 mg tablet ergocalciferol (VITAMIN D) 50,000 unit capsule famotidine (PEPCID) 20 mg tablet fexofenadine (GET) 180 mg tablet isosorbide mononitrate ER (IMDUR) 60 mg 24 hr tablet lamoTRIgine (LaMICtal) 25 mg tablet lancets 30 gauge [facility] latanoprost (XALATAN) 0.005 % ophthalmic solution [facility] keopefxm-pqo-hnajl-vit K-lycop 400-20-300 mcg tablet semaglutide (Ozempic) 2 mg/dose (8 mg/3 mL) pen injector injection Stiolto Respimat 2.5-2.5 mcg/actuation inhaler syringe with needle, safety 1 mL 25 gauge x 5/8 syringe PHYSICAL EXAMINATION: Vitals: 02/12/25 1237 BP: 154/81 BP Location: Left arm Pulse: 60 SpO2: 98% Weight: 84.6 kg (186 lb 9.6 oz) Height: 182.9 cm (6') GENERAL: Alert and oriented, well-nourished, in no acute distress. HEENT: Mucous membranes are moist. Sclera anicteric. LUNGS: Normal effort and respiratory rate. Lungs clear to auscultation bilaterally. HEART: Normal rate, regular rhythm. No murmurs, rubs, or gallops. ABDOMEN: Soft, non-tender, and non-distended. NEUROLOGIC/PSYCH: Alert and oriented x4. Calm and appropriate affect. Grossly normal bilateral motor function and sensation. VASCULAR: Extremities warm and well-perfused. All pulses intact. No edema. SKIN: Left chest wall pacemaker site is well healed LABORATORY/DIAGNOSTICS: Lab Results Component Value Date INR 1.1 11/20/2021 INR 1.1 11/18/2021 INR 1.09 10/11/2016 APTT 34 11/20/2021 APTT 33.7 09/02/2016 APTT 37.0 09/01/2016 Lab Results Component Value Date TROPONINI <0.07 10/05/2012 TROPONINI <0.07 10/04/2012 CKMB 9 (Critical) 09/01/2016 BNP 83 10/11/2016 Lab Results Component Value Date TSH 1.85 06/05/2024 TSH 1.500 08/02/2023 TSH 2.16 11/18/2021 FREET4 1.60 11/18/2021 Lab Results Component Value Date CHOL 191 11/18/2021 TRIG 235 (H) 11/18/2021 HDL 53 11/18/2021 LDLCALC 91 11/18/2021 LDL 45 09/01/2016 EKG 04/09/2024: A-V sequential pacing, QRS 184 ms, QTc 492 ms Device Interrogation 02/12/2025 : Device type: Tse dual chamber pacemaker Battery: 2.3 years Underlying rhythm: Sinus bradycardia, the patient is not dependent AP: 43% LIVESTOCK TRUCKER: 51% AT/AF burden: 0% Atrial lead: Imp 350 ohms, sensing 2.9 mV, capture 0.5 V @ 0.4 ms Right ventricular lead: Imp 460 ohms, sensing >12 mV, capture 1.0 V @ 0.4 ms Lead impedances, sensing, and thresholds are stable. Counters since 08/14/2024 show: no tachyarrhythmias, PVC count <1% No programming changes Transthoracic Echocardiogram 08/30/2023: Technically difficult study w/ markedly limited parasternal views (pectus chest). Mild LV dilation with severe LV systolic dysfunction (LVEF 30%). Indetermiante diastology. Normal RV size and systolic function. Normal atria. Prior TAVR well seated, no AR, and physiologic gradients (MG 8 mmHg). Inadequate TR jet to est RVSP; IVC 1.9 cm w/o resp varition. No pericardial effusion. Normal aortic root and arch. Wire in RV. Compared to TTE 10/2021, mild improvement in LV size and function. MCT 04/05/2024 SCANNING SUMMARY: : *The predominant rhythm was paced with Frequent Ventricular Ectopy. *The Maximum Heart Rate recorded was 185 bpm, 04/13 10:15:00, the Minimum Heart Rate recorded was 54 bpm, 04/15 05:30:57, and the Average Heart Rate was 74 bpm. *There were 77,272 VE beats with a burden of 25 %. There were 141 occurrences of Ventricular Tachycardia with the Fastest episode 185 bpm, 04/13 10:15:00, and the Longest episode 8 beats, 04/14 19:30:25. *There were 46 SVE beats with a burden of <1 %. There was 1 occurrence of Supraventricular Tachycardia with the Fastest episode 113 bpm, 04/15 02:15:20, and the Longest episode 5 beats, 04/15 02:15:20. *Other rhythms in this study include: Ventricular Run. *There was 1 Patient Trigger. INTERPRETATION: : 72 hour study of 309,000 beats. *The predominant rhythm was paced with Frequent Ventricular Ectopy. *The Maximum Heart Rate recorded was 185 bpm, 04/13 10:15:00, the Minimum Heart Rate recorded was 54 bpm, 04/15 05:30:57, and the Average Heart Rate was 74 bpm. *There were 77,272 VE beats with a burden of 25 %. There were 141 occurrences of Ventricular Tachycardia with the Fastest episode 185 bpm, 04/13 10:15:00, and the Longest episode 8 beats, 04/14 19:30:25. *There were 46 SVE beats with a burden of <1 %. There was 1 occurrence of Supraventricular Tachycardia with the Fastest episode 113 bpm, 04/15 02:15:20, and the Longest episode 5 beats, 04/15 02:15:20. *Other rhythms in this study include:polymorphic Ventricular Run at 185 bpm. *There was 1 Patient Trigger with ventricular ectopy Thje 8 beat run of VT is aberrantly conducted beats with slight irregularity I have reviewed the findings on the individual tracings for the dates noted below and I agree, with the above exception regarding the 8 beat run of VT:, The full scanned/data report is available in [employer], labeled MONITOR STRIPS PDF. IMPRESSION AND PLAN: Atrioventricular block, complete (HCC) -Complete heart block post TAVR s/p dual chamber pacemaker 09/02/2016 -Ventricular pacing 51%, not dependent Cardiomyopathy (HCC) -LVEF<35% despite GDMT -He has chronic HFrEF, high ventricular pacing (51%) with QRS duration 184 ms. We discussed DIAL MAKER-D upgrade to primary prevention and cardiac resynchronization. He does not wish to undergo any procedures and continues to decline ICD/DIAL MAKER. -Follow up with Dr Villavicencio Presence of cardiac pacemaker -Dual chamber pacemaker is functioning appropriately as programmed -Lead impedances, sensing, and thresholds are stable -No programming changes -Continue remote monitoring quarterly PVC (premature ventricular contraction) -High burden PVCs - 25% per Holter 03/2024 -Recent increased SOB and fatigue. We discussed management options for his PVCs including amiodarone 200 mg daily or catheter ablation -He is not interested in any invasive procedures but agreed to starting amiodarone 200 mg daily in May 2024 -PVC burden improved on amiodarone (<1% per pacemaker interrogation today) -AST/ALT, TSH today and every 6 months for high risk medication monitoring -QT interval stable, QTc 492 ms -PFTs scheduled with his lock expert in Mar 2025 -Annual eye exams We will plan to see him back 6 months, however we would be happy to see him sooner if needed. DEREK Mathis- CC: Santiago Bey MD [address] [place] [address] [place] [id number] documented in this encounter Miscellaneous Notes * Assessment & Plan Note - Natalie Maher NP - 02/12/2025 2:07 PM CDT Associated Problem(s): PVC (premature ventricular contraction) -High burden PVCs - 25% per Holter 03/2024 -Recent increased SOB and fatigue. We discussed management options for his PVCs including amiodarone 200 mg daily or catheter ablation -He is not interested in any invasive procedures but agreed to starting amiodarone 200 mg daily in May 2024 -PVC burden improved on amiodarone (<1% per pacemaker interrogation today) -AST/ALT, TSH today and every 6 months for high risk medication monitoring -QT interval stable, QTc 492 ms -PFTs scheduled with his lock expert in Mar 2025 -Annual eye exams * Assessment & Plan Note - Natalie Maher NP - 02/12/2025 2:06 PM CDT Associated Problem(s): Presence of cardiac pacemaker -Dual chamber pacemaker is functioning appropriately as programmed -Lead impedances, sensing, and thresholds are stable -No programming changes -Continue remote monitoring quarterly * Assessment & Plan Note - Natalie Maher NP - 02/12/2025 2:06 PM CDT Associated Problem(s): Cardiomyopathy -LVEF<35% despite GDMT -He has chronic HFrEF, high ventricular pacing (51%) with QRS duration 184 ms. We discussed DIAL MAKER-D upgrade to primary prevention and cardiac resynchronization. He does not wish to undergo any procedures and continues to decline ICD/DIAL MAKER. -Follow up with Dr Villavicencio * Assessment & Plan Note - Natalie Maher NP - 02/12/2025 2:03 PM CDT Associated Problem(s): Atrioventricular block, complete (HCC) -Complete heart block post TAVR s/p dual chamber pacemaker 09/02/2016 -Ventricular pacing 51%, not dependent documented in this encounter Plan of Treatment Scheduled Orders Name Type Priority Associated Diagnoses Orde r Schedule Comprehensive metabolic panel Lab Routine CHB (complete heart block) At risk for amiodarone toxicity with retirement use PVC (premature ventricular contraction) Expected: 02/12/2025, Expires: 02/12/2026 Thyroid Function [place] Lab Routine CHB (complete heart block) At risk for amiodarone toxicity with terminal computer operator use PVC (premature ventricular contraction) Expected: 02/15/2025, Expires: 02/12/2026 documented as of this encounter Procedures Procedure Name Priority Date/Time Associated Diagnosis Comments ECG 12-LEAD Routine 02/12/2025 12:33 PM CDT CHB (complete heart block) documented in this encounter Results * ECG 12 lead (02/12/2025 12:33 PM CDT) Natalie Maher NP ECG ORDERABLES Edited Re sult - Final documented in this encounter Visit Diagnoses Diagnosis CHB (complete heart block)- Primary Atrioventricular block, complete At risk for amiodarone toxicity with retirement use PVC (premature ventricular contraction) Other premature beats Other cardiomyopathy Atrioventricular block, complete (HCC) Atrioventricular block, complete Presence of cardiac pacemaker Cardiac pacemaker in situ documented in this encounter Discontinued Medications Medication Sig Discontinue Reason Start Date End Da te amiodarone (PACERONE) 200 mg tablet Take 1 tablet (200 mg total) by mouth daily Reorder 02/05/2025 02/12/2025 documented as of this encounter Care Teams Phototypesetting Equipment Monitor Relationship Specialty Start Date End Date Santiago Bey MD [facility] [place] [address] PCP - General Family Practice 01/05/22 Contreras Robbins MD Referring Physician Pulmonary Disease 01/16/19 Allyson Flood MD PhD [facility] [place] [address] Consulting Physician Ophthalmology 10/03/20 Fransisca Macedo, RN Registered Nurse Pulmonary Disease 04/06/23 documented as of this encounter
--- OUTSIDE RECORDS SUMMARY | 2025-02-13 11:29 | XMS_ITS | Clinical Summary ---
Author Organization [facility] [employer] Address [address] [place] [address] Care Team Providers Care Rag Grader Name Role Phone Cuco Chatman MD Primary Care Provider Aditya Posadas RN Unavailable [phone] Source Comments [facility] [employer],non-owned Affiliates and Associated Physician Practices is amultiple site organization consisting of ambulatory clinics and hospital sitesin [place], [place], [place] and [place]. This disclosure is being madepursuant to the Care Everywhere program and may not contain all information available regarding this patient. Last updated 18.[facility] [employer] Allergies No known active allergies Medications * Be aware that medications may not be up to date on this document. Alwaysverify current medications with the patient. bumetanide (BUMEX) 1 MG tablet Take 3 mg by mouth 2 times daily after meals. Active febuxostat (ULORIC) 40 MG tablet Take 40 mg by mouth once daily. Active hydrocodone 10 MG CAPS cmpd capsule Take 10 mg by mouth 3 times daily as needed for Pain. Active carvedilol (COREG) 3.125 MG tablet Take 3.125 mg by mouth 2 times daily with morning and evening meal. Take one half tab bid Active spironolactone (ALDACTONE) 50 MG tablet Take 50 mg by mouth 2 times daily. Active isosorbide mononitrate CR 24hr (IMDUR) 60 MG tablet Take 60 mg by mouth once daily. Active rosuvastatin (CRESTOR) 20 MG tablet Take 20 mg by mouth once daily. Active hydrALAZINE (APRESOLINE) 100 MG tablet Take 100 mg by mouth 4 times daily. Active Insulin Lispro, Human, (HUMALOG PEN SC) Inject subcutaneous ly. Active Insulin Glargine (LANTUS SC) Inject subcutaneous ly. Active fluticasone-salm eterol (ADVAIR DISKUS) 250-50 MCG/DOSE inhaler Inhale 1 Puff by mouth 2 times daily. Active methocarbamol (ROBAXIN) 750 MG tablet Take 1 Tab by mouth every 8 hours as needed for Muscle Spasms. 40 Tab 1 01/30/2014 Active docusate sodium 100 MG CAPS Take 100 mg by mouth 2 times daily. 01/30/2014 Active polyethylene glycol 3350 (MIRALAX) packet Take 17 g by mouth once daily as needed for Constipation . 01/30/2014 Active piroxicam (FELDENE) 10 MG capsule Take 1 Cap by mouth 2 times daily. 30 Cap 1 01/30/2014 Active Active Problems Problem Noted Date Diagnosed Date DM (diabetes mellitus) HTN (hypertension) Back pain Social History Tobacco Use Types Packs/Day Years Used Date Smoking Tobacco: Never Alcohol Use Standard Drinks/Week Comments Yes 0 (1 standard drink = 0.6 oz pur e alcohol) social Sex and Gender Information Value Date Recorded Sex Assigned at Not on file Legal Sex Male 11:55 AM CDT Gender Identity Not on file Sexual Orientation Not on file Last Filed Vital Signs Vital Sign Reading Time Taken Comments Blood Pressure 133/61 01/30/2014 11:38 AM CDT Pulse 84 01/30/2014 11:38 AM CDT Temperature 36.8 C (98.2 F) 01/30/2014 11:38 AM CDT Respiratory Rate 18 01/30/2014 11:38 AM CDT Oxygen Saturation 97% 01/30/2014 11:38 AM CDT Inhaled Oxygen Concentration - - Weight 129.7 kg (286 lb) 03/18/2014 9:53 AM CDT Height 182.9 cm (6') 03/18/2014 9:53 AM CDT Body Mass Index 38.79 03/18/2014 9:53 AM CDT Plan of Treatment Health Maintenance Due Date Last Done Comments COLOGUARD (AGES 45-75) - COL ON CA SCREENING 1950 COLON MONITORING 1950 COLONOSCOPY - COLON CA SCREENING 1950 CT COLONOGRAPHY - COLON CA SCREENING 1950 Colorectal Cancer Screening 1950 FIT - COLON CA SCREENING 1950 FLEX SIG - COLON CA SCREENING 1950 HEPATITIS C SCREENING 10/20/1970 DTAP/TDAP/TD VACCINES (1 - Tdap) 10/25/1971 PNEUMOCOCCAL VACCINE 50+ (1 of 1 - PCV) 2002 ZOSTER VACCINE (1 of 2) 2002 Respiratory Syncytial Virus (RSV) Vaccine Pt: or over 60 yrs (1 - Risk 60-74 years 1-dose series) 2012 COVID-19 VACCINE (1 - 2023-2 5 season) 2024 DEPRESSION SCREENING 06/27/2024 INFLUENZA VACCINE (#1) 2025 HEPATITIS B VACCINE Aged Out No longe r eligible based on patient's age to complete this topic HIB VACCINE Aged Out No longer eligi ble based on patient's age to complete this topic HPV VACCINE Aged Out No longer eligi ble based on patient's age to complete this topic MENINGOCOCCAL (Group B) VACC INE SHARED DECISION-MAKING Aged Out No longer eligibl e based on patient's age to complete this topic MENINGOCOCCAL GROUPS A/C/Y/W VACCINE Aged Out No longer eligible b ased on patient's age to complete this topic Insurance [employer] Advance Directives * Full Code (Latest Code Status on File) Date Activated Date Inactivated Comments 01/29/2014 12:37 PM 01/30/2014 1:43 PM Care Teams Rag Grader Relationship Specialty Start Date End Date Cuco Chatman MD [address] [place] [address] PCP - General Internal Medicine 01/09/14 Aditya Posadas RN City Planning Aide 01/30/14
--- OUTSIDE RECORDS SUMMARY | 2025-02-13 11:29 | XMS_ITS | Clinical Summary ---
Author Organization [facility] Address [address] [place] [address] Phone Care Team Providers Care Chemical Equipment Repairer Name Role Phone Santiago Bey MD Primary Care Provider Allergies Active Allergy Reactions Criticality Noted Date Comments Latex 03/04/2022 Medications Blood Glucose Monitoring Suppl ([employer] Verio Reflect) w/Device kit USE TO TEST ONCE DAILY 11/06/2021 Active albuterol HFA (PROVENTIL HFA) 108 (90 Base) MCG/ACT inhaler INHALE 1-2 PUFFS BY MOUTH TWICE A DAY 02/22/2022 Active aspirin (ST BARB) 81 MG EC tablet Take 81 mg by mouth daily Active atorvastatin (LIPITOR) 20 MG tablet Take 20 mg by mouth daily 01/12/2019 Active bumetanide (BUMEX) 1 MG tablet Take 1 mg by mouth 2 (two) times a day 12/10/2021 Active carvedilol (COREG) 6.25 MG tablet Take 6.25 mg by mouth 2 (two) times a day with meals 11/26/2021 Active clopidogrel (PLAVIX) 75 MG tablet Take 75 mg by mouth 1 (one) time each day 11/27/2021 Active Cholecalciferol 50 MCG (1999 UT) capsule 2,000 Units Active insulin aspart (NovoLOG) 100 UNIT/ML injection Inject 13 Units under the skin 2 times daily 11/26/2021 Active insulin detemir (Levemir FlexTouch) 100 UNIT/ML injection Inject 40 Units under the skin daily 11/26/2021 Active isosorbide mononitrate (IMDUR) 60 MG 24 hr tablet Take 60 mg by mouth 1 (one) time each day 11/30/2021 Active glucose blood (UserEvents[employer] Verio) test strip USE TO TEST ONCE DAILY 10/31/2021 Active Lancets (OneTouch Delica Plus [id number]) misc USE TO TEST ONCE DAILY 10/31/2021 Active latanoprost (XALATAN) 0.005 % ophthalmic solution INSTILL 1 DROP INTO BOTH EYES EVERY DAY AT NIGHT 12/18/2021 Active levETIRAcetam (KEPPRA) 1000 MG tablet Take 1,000 mg by mouth 2 times daily 03/31/2021 Active lisinopril (PRINIVIL) 10 MG tablet Take 10 mg by mouth 2 (two) times a day 01/14/2022 Active meloxicam (MOBIC) 7.5 MG tablet Take 7.5 mg by mouth daily 04/10/2019 Active metoclopramide (REGLAN) 10 MG tablet TAKE 1 TABLET BY MOUTH THREE TIMES A DAY 1/2 HOUR BEFORE MEALS 01/04/2022 Active metOLazone (ZAROXOLYN) 2.5 MG tablet Take 2.5 mg by mouth 1 (one) time each day 12/09/2021 Active potassium chloride (KLOR-CON M20) 20 MEQ CR tablet Take 20 mEq by mouth daily 11/26/2021 Active spironolactone (ALDACTONE) 25 MG tablet Take 25 mg by mouth 2 (two) times a day 01/11/2022 Active tiotropium-oloda terol (Stiolto Respimat) 2.5-2.5 MCG/ACT aerosol solution inhaler Inhale 2 puffs daily 08/03/2021 Active Active Problems Problem Noted Date Diagnosed Date Chronic kidney disease stage 3B 02/25/2022 Cardiomyopathy 03/09/2021 Complete atrioventricular block 12/20/2017 History of aortic valve replacement 09/29/2016 Overview (03/04/2022): Last Assessment & Plan: History of severe s/p TAVR in 2016. Last TTE in June with increased gradients across AVR however mean only 17 mmHg with peak of 27 mmHg with TY of 1.2 cm2 -Repeat TTE showing stable gradients as per above -continue aspirin, clopidogrel and atorvastatin Aortic valve stenosis 06/08/2016 Chronic obstructive pulmonary disease 03/26/2015 Diabetes mellitus 11/10/2013 Overview (03/04/2022): DMII WO CMP UNCNTRLD Last Assessment & Plan: Stable with no diabetic retinopathy on dilated exam today. Stressed the importance of glycemic control in preventing diabetic eye disease. Hyperlipidemia 11/10/2013 Overview (03/04/2022): MIXED HYPERLIPIDEMIA Hypertension 11/10/2013 Overview (03/04/2022): BENIGN HYPERTENSION Obstructive sleep apnea of adult 11/10/2013 Overview (03/04/2022): Sleep Apnea Seizure 11/10/2013 Overview (03/04/2022): Seizure Last Assessment & Plan: -continue home Keppra Chronic diastolic heart failure 11/09/2010 Diabetic renal disease 04/29/2009 Immunizations Immunization Administration Dates Next Due H1N1 All Forms 06/24/2009 Influenza (IM) Preservative Free 03/27/2009 Influenza Split High Dose Preservative Free IM 1 Influenza, Injectable, Mdck, Preservative Free, Quadrivalt 03/29/2018 Influenza, Unspecified 03/25/2021,04/10/2019 Social History Tobacco Use Types Packs/Day Years Used Date Smoking Tobacco: Never Smokeless Tobacco: Never Alcohol Use Standard Drinks/Week Comments Yes 1 (1 standard drink = 0.6 oz pur e alcohol) Sex and Gender Information Value Date Recorded Sex Assigned at Not on file Legal Sex Male 10:41 AM MDT Gender Identity Not on file Sexual Orientation Not on file Last Filed Vital Signs Vital Sign Reading Time Taken Comments Blood Pressure 122/70 03/04/2022 9:36 AM CDT Pulse 72 03/04/2022 9:36 AM CDT Temperature 36.7 C (98.1 F) 03/04/2022 9:36 AM CDT Respiratory Rate - - Oxygen Saturation - - Inhaled Oxygen Concentration - - Weight 106 kg (233 lb) 03/04/2022 9:36 AM CDT Height 190.5 cm (6' 3) 03/04/2022 9:36 AM CDT Body Mass Index 29.12 03/04/2022 9:36 AM CDT Plan of Treatment Health Maintenance Due Date Last Done Comments Pneumococcal PPSV23/PCV13 65 + Years / Low and Medium Risk (1 of 2 - PCV) 2002 Influenza Vaccine (#1) 2025 , 04/10/2019, 03/29/2018, Additional history exists Insurance [employer] MED[employer]ARE [employer]VANTAGE Care Teams Chemical Equipment Repairer Relationship Specialty Start Date End Date Santiago Bey MD [address] [place] [address] PCP - General Internal Medicine 02/15/22
--- OUTSIDE RECORDS SUMMARY | 2025-02-13 11:29 | XMS_ITS | Encounter Summary ---
Author Organization [facility] Address [address] [place] [address] Phone Care Team Providers Care Tombstone Erector Helper Name Role Phone Cuco Chatman MD Primary Care Provider [phone] Contreras Robbins MD Unavailable [phone] Allyson Flood MD PhD Unavailable [phone] Lenka Quezada FOUR H AGENT Unavailable [phone] Santiago Bey MD Primary Care Provider Fransisca Macedo RN Unavailable Unavailabl e Encounter Details Date Type Department Care Team (Late st Contact Info) Description 12/14/2016 Orders Only [facility] Provider, MD Leigh Ann [address] [place] [id number] Social History Tobacco Use Types Packs/Day Years Used Date Smoking Tobacco: Never Assessed Alcohol Use Standard Drinks/Week Comments No 0 (1 standard drink = 0.6 oz pur e alcohol) Sex and Gender Information Value Date Recorded Sex Assigned at Not on file Legal Sex Male 11:34 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 us Historical Provider [facility] GABE MCMULLEN Final Result documented in this encounter Visit Diagnoses Not on filedocumented in this encounter Additional Health Concerns Infection Onset Date Last Indicated Resolved Time COVID: Suspected 11/18/2021 11/18/2021 11/19/2021 12:04 AM CDT documented as of this encounter Care Teams Tombstone Erector Helper Relationship Specialty Start Date End Date Cuco Chatman MD [address] [place] [address] PCP - General 08/10/16 01/04/22 Santiago Bey MD [address] [facility] [place] [address] PCP - General Family Practice 01/05/22 Contreras Robbins MD [address] [place] [address] Referring Physician Pulmonary Disease 01/16/19 Allyson Flood MD PhD [address] [facility] [place] [address] Consulting Physician Ophthalmology 10/03/20 Lenka Quezada NP [address] [place] [address] Long Term Care Administrator 12/02/21 3 Fransisca Macedo RN Registered Nurse Pulmonary Disease 04/06/23 documented as of this encounter
--- OUTSIDE RECORDS SUMMARY | 2025-02-13 11:29 | XMS_ITS | Clinical Summary ---
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 Name Role Phone Contreras Robbins MD Unavailable [phone] Allyson Flood MD PhD Unavailable [phone] Santiago Bey MD Primary Care Provider Fransisca Macedo RN Unavailable Unavailabl e Allergies Active Allergy Reactions Criticality Noted Date Comments Latex Itching Low 03/04/2022 Medications albuterol HFA (PROVENTIL HFA,VENTOLIN HFA,PROAIR HFA) 90 mcg/actuation inhalerIndicati ons:Chronic Obstructive Pulmonary Disease Inhale 2 puffs every 4 (four) hours as needed for shortness of breath Active aspirin 81 mg enteric coated tabletIndicatio ns:Myocardial Reinfarction Prevention Take 1 tablet (81 mg total) by mouth every morning Active miscellaneous medical supply misc Administer 4 L into affected nostril(s) nightly O2 With CPAP Active cholecalciferol (VITAMIN D-3) 2000 unit capsule 1 capsule (2,000 Units total) Active blood-glucose meter kit USE TO TEST ONCE DAILY 11/07/19 22 Active blood glucose diagnostic (OneTouch Ultra Test) strip USE TO TEST ONCE DAILY 11/01/19 22 Active lancets 30 gauge misc USE TO TEST ONCE DAILY 11/01/19 22 Active semaglutide (Ozempic) 2 mg/dose (8 mg/3 mL) pen injector injection Inject 1 mg under the skin once a week Active atorvastatin (LIPITOR) 20 mg tablet Take 1 tablet (20 mg total) by mouth daily 90 tablet 3 08/30/19 24 Active Stiolto Respimat 2.5-2.5 mcg/actuation inhaler INHALE 2 PUFFS BY MOUTH EVERY DAY 4 g 5 11/14/19 24 Active latanoprost (XALATAN) 0.005 % ophthalmic solution Administer 1 drop into both eyes nightly 7.5 mL 3 03/15/20 24 Active ergocalciferol (VITAMIN D) 50,000 unit capsule 03/22/20 24 Active famotidine (PEPCID) 20 mg tablet Take 1 tablet (20 mg total) by mouth daily 01/24/20 24 Active dapagliflozin propanediol (FARXIGA) 10 mg tablet 1 tablet (10 mg total) Active [id number] lic-vit K-lycop 400-20-300 mcg tablet Take by mouth Active azelastine (ASTELIN) 137 mcg (0.1 %) nasal spray ADMINISTER 1-2 SRRAYS INTO EACH NOSTRIL EVERY DAY AT BEDTIME FOR ALLERGY 09/14/19 25 Active fexofenadine (GET) 180 mg tablet Take 1 tablet (180 mg total) by mouth daily 09/14/19 25 Active bumetanide (BUMEX) 1 mg tablet TAKE 1 TABLET BY MOUTH TWICE A DAY 180 tablet 3 11/23/19 25 Active carvediloL (COREG) 12.5 mg tablet TAKE 1 TABLET BY MOUTH TWICE A DAY WITH FOOD 180 tablet 3 11/23/19 25 Active cyanocobalamin (Vitamin B-12) 1,000 mcg/mL injectionIndica tions:Axonal sensorimotor neuropathy,Neur opathy Inject 1 mL (1,000 mcg total) into the muscle as instructed 3 (three) times a week for 7 days, THEN 1 mL (1,000 mcg total) once a week. Patient is to have injection MWF the first week, then go to weekly injections. 15 mL 01/08/20 25 025 Active syringe with needle, safety 1 mL 25 gauge x 5/8 syringeIndicati ons:Axonal sensorimotor neuropathy,Neur opathy 15 each once a week To be used to administer B12 injection 15 each 01/08/20 25 Active isosorbide mononitrate ER (IMDUR) 60 mg 24 hr tablet TAKE 1 TABLET BY MOUTH EVERY DAY 90 tablet 3 01/11/20 25 Active clopidogreL (PLAVIX) 75 mg tablet TAKE 1 TABLET BY MOUTH EVERY DAY IN THE MORNING 90 tablet 3 02/06/20 25 Active lamoTRIgine (LaMICtal) 25 mg tablet TAKE 1 TAB DAILY FOR 2 WEEKS THEN 2 TABS DAILY FOR 2 WEEKS THEN 4 TABS DAILY FOR 1 WEEK 70 tablet 02/09/20 25 Active amiodarone (PACERONE) 200 mg tablet Take 1 tablet (200 mg total) by mouth daily 30 tablet 5 02/13/20 25 026 Active amiodarone (PACERONE) 200 mg tablet Take 1 tablet (200 mg total) by mouth daily 30 tablet 5 06/05/20 24 025 Discontinued(R eorder) lamoTRIgine (LaMICtal) 25 mg tablet Take 1 tab daily for 2 weeks then 2 tabs daily for 2 weeks then 4 tabs daily for 1 week 70 tablet 11/09/19 25 025 Discontinued amoxicillin 500 mg tablet Take 1 tablet/capsul e (500 mg total) by mouth 11/29/19 25 025 Discontinued amiodarone (PACERONE) 200 mg tablet Take 1 tablet (200 mg total) by mouth daily 30 tablet 5 02/06/20 25 025 Discontinued(R eorder) Active Problems Problem Noted Date Diagnosed Date PVC (premature ventricular contraction) 06/05/20 24 Assessment & Plan (02/12/2025 2:07 PM CDT): -High burden PVCs - 25% per Holter [...] QTc 492 ms -PFTs 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 We discussed management options for his PVCs including amiodarone 200 mg daily or catheter ablation -He is not interested in any invasive procedures but agreed to starting amiodarone 200 mg daily in May 2024 -PVC burden improved on amiodarone (1.3% per pacemaker interrogation today) -AST/ALT, TSH every 6 months (due in 11/2024) -QT interval stable, QTc 494 ms -PFTs scheduled with his decorating machine tender in Mar 2025 Assessment & Plan (06/05/2024 4:22 PM GLASSWARE VERIFIER): -High burden PVCs - 25% per recent Holter 03/2024 -LVEF <35% despite GDMT but he declines ICD for primary prevention of sudden cardiac -Recent increased SOB and fatigue. We discussed management options for his PVCs including amiodarone 200 mg daily or catheter ablation -He is not interested in any invasive procedures, but would like to try amiodarone 200 mg daily given increased symptoms of SOB and fatigue. Risks and potential amiodarone toxicities reviewed with the patient -AST/ALT, TSH today -QT interval normal at baseline, EKG in 1-2 weeks Restrictive lung disease 04/08/2022 Stage 3b chronic kidney disease 02/25/2022 Operculated retinal tear, left eye 12/04/2021 Assessment & Plan (07/01/2022 2:16 PM GLASSWARE VERIFIER): Stable without detachment. No high risk characteristics. The signs and symptoms of retinal detachment were reviewed. Advised urgent evaluation with any onset. Assessment & Plan (12/04/2021 3:41 PM CDT): No SRF. The signs and symptoms of retinal detachment were reviewed. Advised urgent evaluation with any onset. Follow with annual dilated exam. Sooner prn. Headache 11/19/2021 Assessment & Plan (11/25/2021 1:51 PM CDT): Patient presented with severe headache and occasional flashes of light in both eyes (but no visual acuity changes) which began on Tuesday while he was at [employer]. Symptoms improved with PRN Tylenol. Reports no chronic history of headaches. 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 -Neurology consulted (appreciate recs): OSH CT head uploaded to [facility]; s/p Headache cocktail: tylenol 650, compazine 5 q6, 2mg magnesium x 1. -If headache worsens to >5/10 in severity, can load with Depakote 15 mg/kg x1 -continue Keppra 1,000mg BID for history of seizures -no plans for lumbar puncture with resolution of headache -FONG has resolved--appreciate Neurology assistance -Pt will need EP coordinated OP brain MRI because of high risk status -s/p device interrogation performed (see interrogation in chart) -CXR performed and reviewed with no evidence of epicardial leads, abandoned leads, damaged leads, or leads with incompatible extenders or adaptors -Leads are > 6 weeks old -Device battery is not at [facility] -Device is an MRI conditional system and patient is assessed at [facility] -Will notify MRI of risk stratification and timing of scan will be determined by the radiology department; EP will be available by phone at [phone]. -tele Assessment & Plan (11/24/2021 11:07 AM CDT): Patient presented with severe headache and occasional flashes of light in both eyes (but no visual acuity changes) which began on Tuesday while he was at [employer]. Symptoms improved with PRN Tylenol. Reports no chronic history of headaches. 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 -FONG has resolved--appreciate Neurology assistance -Neurology consulted (appreciate recs): OSH CT head uploaded to [facility]; s/p Headache cocktail: tylenol 650, compazine 5 q6, 2mg magnesium x 1. -If headache worsens to >5/10 in severity, can load with Depakote 15 mg/kg x1 -Continue Keppra 1,000mg BID for history of seizures -no plans for lumbar puncture with resolution of headache -Pt will need EP coordinated OP brain MRI because of high risk status -s/p device interrogation performed (see interrogation in chart) -CXR performed and reviewed with no evidence of epicardial leads, abandoned leads, damaged leads, or leads with incompatible extenders or adaptors -Leads are > 6 weeks old -Device battery is not at [facility] -Device is an MRI conditional system and patient is assessed at [facility] -Will notify MRI of risk stratification and timing of scan will be determined by the radiology department; EP will be available by phone at [phone]. -tele Assessment & Plan (11/23/2021 9:59 AM CDT): Patient presented with severe headache and occasional flashes of light in both eyes (but no visual acuity changes) which began on Tuesday while he was at [employer]. Symptoms improved with PRN Tylenol. Reports no chronic history of headaches. 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 -Patient reports that his headache has now improved from a 10/10 to 5/10 -No neurological deficits -Neurology consulted (appreciate recs): OSH CT head uploaded to [facility]; s/p Headache cocktail: tylenol 650, compazine 5 q6, 2mg magnesium x 1. -If headache worsens to >5/10 in severity, can load with Depakote 15 mg/kg x1 -Continue Keppra 1,000mg BID for history of seizures -no plans for lumbar puncture with resolution of headache -ordered brain MRI that will require EP oversight. This may need to be completed in outpatient, will follow up with neuro on 11/23. If unable to complete inpatient, will discuss with neurology setting up outpatient f/u with schedule outpatient brain MRI Electrophysiology consulted regarding MRI compatibility of implantable device -Device interrogation performed (see interrogation in chart) -CXR performed and reviewed with no evidence of epicardial leads, abandoned leads, damaged leads, or leads with incompatible extenders or adaptors -Leads are > 6 weeks old -Device battery is not at [facility] -Device is an MRI conditional system and patient is assessed at [facility] [facility] -Will notify MRI of risk stratification and timing of scan will be determined by the radiology department; EP will be available by phone at [phone]. Assessment & Plan (11/22/2021 12:42 PM CDT): Patient presented with severe headache and occasional flashes of light in both eyes (but no visual acuity changes) which began on Tuesday while he was at [employer]. Symptoms improved with PRN Tylenol. Reports no chronic history of headaches. 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 -Patient reports that his headache has now improved from a 10/10 to 5/10 -No neurological deficits -Neurology consulted (appreciate recs): OSH CT head uploaded to [facility]; s/p Headache cocktail: tylenol 650, compazine 5 q6, 2mg magnesium x 1. -If headache worsens to >5/10 in severity, can load with Depakote 15 mg/kg x1 -Continue Keppra 1,000mg BID for history of seizures -no plans for lumbar puncture with resolution of headache -ordered brain MRI that will require EP oversight. This may need to be completed in outpatient, will follow up with neuro on 11/23 Electrophysiology consulted regarding MRI compatibility of implantable device -Device interrogation performed (see interrogation in chart) -CXR performed and reviewed with no evidence of epicardial leads, abandoned leads, damaged leads, or leads with incompatible extenders or adaptors -Leads are > 6 weeks old -Device battery is not at [facility] -Device is an MRI conditional system and patient is assessed at [facility] -Will notify MRI of risk stratification and timing of scan will be determined by the radiology department; EP will be available by phone at [phone]. Assessment & Plan (11/21/2021 11:40 AM CDT): Patient presented with severe headache and occasional flashes of light in both eyes (but no visual acuity changes) which began on Tuesday while he was at [employer]. Symptoms improved with PRN Tylenol. Reports no chronic history of headaches. 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 -Patient reports that his headache has now improved from a 10/10 to 5/10 -No neurological deficits -Neurology consulted (appreciate recs): OSH CT head uploaded to [facility]; s/p Headache cocktail: tylenol 650, compazine 5 q6, 2mg magnesium x 1. -If headache worsens to >5/10 in severity, can load with Depakote 15 mg/kg x1 -Continue Keppra 1,000mg BID for history of seizures -no plans for lumbar puncture with resolution of headache and no red flags -ordered brain MRI Electrophysiology consulted regarding MRI compatibility of implantable device -Device interrogation performed (see interrogation in chart) -CXR performed and reviewed with no evidence of epicardial leads, abandoned leads, damaged leads, or leads with incompatible extenders or adaptors -Leads are > 6 weeks old -Device battery is not at [facility] -Device is an MRI conditional system and patient is assessed at [facility] -Will notify MRI of risk stratification and timing of scan will be determined by the radiology department; EP will be available by phone at [phone]. Assessment & Plan (11/20/2021 12:21 PM CDT): Patient presented with severe headache and occasional flashes of light in both eyes (but no visual acuity changes) which began on Tuesday while he was at [employer]. Symptoms improved with PRN Tylenol. Reports no chronic history of headaches. 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 -Patient reports that his headache has now improved from a 10/10 to 5/10 -No neurological deficits Neurology consulted, recommending: -Please obtain OSH head CT images (images pushed from OSH to [facility] and nominated for review on 11/20) -Please obtain brain MRI with and without contrast if possible -Headache cocktail: tylenol 650, compazine 5 q6, 2mg magnesium x 1. -If headache worsens to >5/10 in severity, can load with Depakote 15 mg/kg x1. -Continue Keppra 1,000mg BID for history of seizures Electrophysiology consulted regarding MRI compatibility of implantable device -Device interrogation performed (see interrogation in chart) -CXR performed and reviewed with no evidence of epicardial leads, abandoned leads, damaged leads, or leads with incompatible extenders or adaptors -Leads are > 6 weeks old -Device battery is not at [facility] -Device is an MRI conditional system and patient is assessed at [employer] -Will notify MRI of risk stratification and timing of scan will be determined by the radiology department; EP will be available by phone at [phone]. Assessment & Plan (11/19/2021 10:28 AM CDT): Patient presented with 1 week of severe temporal headache and occasional flashes of light but no visual acuity changes which improved with Tylenol. Reports no chronic history of headaches. -Head CT at OSH ([facility]) without any acute changes -Neurology and opthalmology consults today -Plan to obtain CT imaging from OSH but would benefit from MRI. PPM generator and RV lead appear to be MRI conditional but atrial lead is not listed as MRI condition under [facility] website. Will need to touch base with EP -Patient reports that his headache is now improved from a 10/10 to 5/10-no neurological deficits -Tylenol PRN Acute on chronic heart failu re with reduced ejection fraction and diastolic dysfunction 11/18/2021 Assessment & Plan (11/25/2021 3:13 PM CDT): Patient presenting with worsening shortness of breath with no improvement of symptoms with addition of metolazone outpatinet Weight increased by ~10 lbs from dry weight. While his examination is difficult given body habitus, he does not appear to be grossly volume overloaded. Will attempt diuresis given symptoms. -Repeat TTE 11/19 showed LVEF 23%, well-seated bioprosthetic AVR, gradients are stable compared to previous study 23/12 mmHg -Troponin negative, EKG without ischemic changes -COVID swab negative -pt remains euvolemic and hemodynamically stable -bumex and lisinopril resumed yesterday however Cr up to 2.29 today, will hold bumex -continue asa/statin/coreg 6.25mg/plavix -resume spironolactone -Would benefit from SGLT-2 prior to discharge -continue 2gm na diet -I&Os, daily weights, telemetry Assessment & Plan (11/24/2021 11:12 AM CDT): Patient presenting with worsening shortness of breath with no improvement of symptoms with addition of metolazone outpatinet Weight increased by ~10 lbs from dry weight. While his examination is difficult given body habitus, he does not appear to be grossly volume overloaded. Will attempt diuresis given symptoms. -Repeat TTE 11/19 showed LVEF 23%, well-seated bioprosthetic AVR, gradients are stable compared to previous study 23/12 mmHg -Troponin negative, EKG without ischemic changes -COVID swab negative -pt remains euvolemic and hemodynamically stable -will start bumex 1mg PO today and follow volume status/renal fxn closely -increase hydralazine to 50mg TID and titrate up as tolerated -Continue asa/statin/coreg 6.25mg/plavix -lisinopril and aldactone remain on hold -Would benefit from SGLT-2 prior to discharge -possible discharge 11/25 of renal fxn remains stable -continue 2gm na diet -intake and output./daily weights -PT--ambulate in halls today -tele Assessment & Plan (11/23/2021 1:04 PM CDT): Patient presenting with worsening shortness of breath with no improvement of symptoms with addition of metolazone outpatinet. Weight increased by ~10 lbs from dry weight. While his examination is difficult given body habitus, he does not appear to be grossly volume overloaded. Will attempt diuresis given symptoms. -Repeat TTE 11/19 showing LVEF 23%, well seated bioprosthetic AVR, gradients are stable compared to previous study 23/12 mmHg -Troponin negative, EKG without ischemic changes -COVID swab negative -appears euvolemic -s/p IV lasix gtt, holding off diuretics for now with uptrending Cr, anticipate transition to home PO bumex 1mg bid prior to discharge -will give 250cc IVF, monitor BMP -Continue home coreg 6.25 mg BID, holding home lisinopril aldactone 25 mg daily, 5mg for MICHELLE -c/w hydralazine 25mg tid -Would benefit from SGLT-2 prior to discharge Assessment & Plan (11/22/2021 12:25 PM CDT): Patient presenting with worsening shortness of breath with no improvement of symptoms with addition of metolazone outpatinet. Weight increased by ~10 lbs from dry weight. While his examination is difficult given body habitus, he does not appear to be grossly volume overloaded. Will attempt diuresis given symptoms. -Repeat TTE 11/19 showing LVEF 23%, well seated bioprosthetic AVR, gradients are stable compared to previous study 23/12 mmHg -Troponin negative, EKG without ischemic changes -COVID swab negative -appears euvolemic -s/p IV lasix gtt, anticipate transition to home PO bumex 1mg bid tomorrow -Continue home coreg 6.25 mg BID, holding home lisinopril aldactone 25 mg daily, 5mg for MICHELLE -c/w hydralazine 25mg tid -Would benefit from SGLT-2 prior to discharge Assessment & Plan (11/21/2021 12:42 PM CDT): Patient presenting with worsening shortness of breath with no improvement of symptoms with addition of metolazone outpatinet. Weight increased by ~10 lbs from dry weight. While his examination is difficult given body habitus, he does not appear to be grossly volume overloaded. Will attempt diuresis given symptoms. -Repeat TTE 11/19 showing LVEF 23%, well seated bioprosthetic AVR, gradients are stable compared to previous study 23/12 mmHg -Troponin negative, EKG without ischemic changes -COVID swab negative -UOP 1.5, Cr 1.66->1.59, wt 109.5->109.7 -c/w IV lasix 10 mg/hr, will give metolazone 5mg today -Continue home coreg 6.25 mg BID, aldactone 25 mg daily, holding home lisinopril 5mg for MICHELLE. Started hydralazine 25mg tid -Would benefit from SGLT-2 prior to discharge Assessment & Plan (11/20/2021 12:10 PM CDT): Patient presenting with worsening shortness of breath with no improvement of symptoms with addition of metolazone outpatinet. Weight increased by ~10 lbs from dry weight. While his examination is difficult given body habitus, he does not appear to be grossly volume overloaded. Will attempt diuresis given symptoms. -Repeat TTE 11/19 showing LVEF 23%, well seated bioprosthetic AVR, gradients are stable compared to previous study 23/12 mmHg -Troponin negative, EKG without ischemic changes -COVID swab negative -Hemodynamically stable, exam difficult but does not appear grossly overloaded -Continue Lasix 80 mg IV BID -Continue home coreg 6.25 mg BID, lisinopril 5 mg daily, aldactone 25 mg daily -Would benefit from SGLT-2 prior to discharge Assessment & Plan (11/19/2021 10:17 AM CDT): Patient presenting with worsening shortness of breath with no improvement of symptoms with addition of metolazone outpatinet. Weight increased by ~10 lbs from dry weight. While his examination is difficult given body habitus, he does not appear to be grossly volume overloaded. Will attempt diuresis given symptoms. -NT-proBNP -Troponin negative, EKG without ischemic changes -COVID swab negative -Hemodynamically stable, exam difficult but does not appear grossly overloaded -Continue Lasix 80 mg IV BID -Continue home coreg 6.25 mg BID, lisinopril 5 mg daily, aldactone 25 mg daily -Would benefit from SGLT-2 prior to discharge -Plan for repeat TTE to assess TAVR gradients Bilateral posterior capsular opacification 01/21 /2022 Assessment & Plan (09/07/2024 10:30 AM CDT): Some impact on acuity OS but not functionally limiting to pat. Offered yag cap but pt elects observation. Assessment & Plan (09/08/2023 3:34 PM CDT): Stable. Observe. F/u annually. Assessment & Plan (01/10/2023 5:00 PM CDT): Contributing to reduced acuity OS but pt not bothered by it. F/u annually. Assessment & Plan (12/04/2021 3:40 PM CDT): Minimal impact on vision. observe. Assessment & Plan (07/17/2021 11:21 AM GLASSWARE VERIFIER): OS>OD, accounting for visual complaints. yag cap not yet indicated. Will reassess at f/u in 4 mos. Pseudophakia of both eyes 03/13/2021 Assessment & Plan (09/07/2024 10:30 AM CDT): Stable. Observe. Assessment & Plan (03/15/2024 4:11 PM CDT): Stable. Observe. Assessment & Plan (09/08/2023 3:34 PM CDT): Stable. Observe. Assessment & Plan (01/10/2023 5:01 PM CDT): Stable. Observe. Assessment & Plan (12/04/2021 3:43 PM CDT): Stable. Observe. Assessment & Plan (03/13/2021 10:47 AM CDT): Stable. Observe. Cardiomyopathy 03/09/2021 Assessment & Plan (02/12/2025 2:06 PM CDT): -LVEF<35% despite GDMT -He has chronic HFrEF, high ventricular pacing (51%) with QRS duration 184 ms. We discussed AUTOMOTIVE FLEET SUPERVISOR-D upgrade to primary prevention and cardiac resynchronization. He does not wish to undergo any procedures and continues to decline ICD/AUTOMOTIVE FLEET SUPERVISOR. -Follow up with Dr Villavicencio Assessment & Plan (08/14/2024 2:20 PM GLASSWARE VERIFIER): -LVEF<35% despite GDMT, repeatedly declines ICD or AUTOMOTIVE FLEET SUPERVISOR-P upgrade -Follow up with Dr Villavicencio Assessment & Plan (06/05/2024 4:19 PM GLASSWARE VERIFIER): -LVEF<35% despite GDMT, repeatedly declines ICD or AUTOMOTIVE FLEET SUPERVISOR Prostate cancer 11/28/2018 Primary open angle glaucoma (POAG) of both eyes, mild stage 01/03/2018 Assessment & Plan (09/07/2024 10:30 AM CDT): IOP stable on latanoprost qhs OU. OCT overall stable. CPM. F/u in 6 mos for 24-2 VF + IOP ck. Assessment & Plan (03/15/2024 4:11 PM CDT): Stable exam, IOP and VF today. CPM with latanoprost qhs OU. F/u in 6 mos for DFE with RNFL/GCC OCT. Assessment & Plan (09/08/2023 3:34 PM CDT): Iop great on 1 class. OCT stable. CPM with latanoprost qhs OU. F/u in 6 mos for 24-2 VF +IOP ck. Assessment & Plan (01/10/2023 5:01 PM CDT): IOP acceptable on 1 class. VF stable. CPM with latanoprost qhs OU. F/u in 6 mos for DFE with RNFL/GCC OCT. Assessment & Plan (07/01/2022 2:16 PM GLASSWARE VERIFIER): IOP acceptable on 1 class OU. Stable on VF. OCT borderline reliability due to poor signal strength but stable. CPM with latanoprost qhs OU. F/u in 6 months for 24-2 VF + IOP ck. Assessment & Plan (12/04/2021 3:43 PM CDT): IOP excellent on latanoprost qhs OU. CPM. RTC x 6 mos for 24-2 VF + IOP ck. Assessment & Plan (07/17/2021 11:20 AM GLASSWARE VERIFIER): IOP excellent today on 1 class. No e/o progression on OCT. CPM with latanoprost qhs OU. F/u in 4-6 mos for DFE with OCT. Extend f/u if stable. Assessment & Plan (03/13/2021 10:47 AM CDT): IOP acceptable on 1 class. CPM with latanoprost qhs OU. F/u in OCT and IOP ck in 4 mos. Assessment & Plan (11/07/2020 11:39 AM CDT): IOP well controlled on 1 class. CPM with latanoprost qhs OU. F/u with 24-2 VF and IOP ck in 4 mos. Assessment & Plan (10/08/2020 12:04 PM CDT): - Continue Xal at bedtime (qHS) OU - Routine follow-up with Dr. Avendano Assessment & Plan (07/16/2020 11:47 AM GLASSWARE VERIFIER): - IOP great today on 1 class (Xal at bedtime (qHS) OU) - Continue Xal at bedtime (qHS) OU for now. Following CEIOL OD, plan to update glaucoma screening and consider trial off Xal. Assessment & Plan (06/11/2020 7:21 AM GLASSWARE VERIFIER): - Continue Xal at bedtime (qHS) OU for now Assessment & Plan (03/11/2020 12:34 PM CDT): - IOP wnl on 1 class; patient declines phaco/MIGS - Continue Xal at bedtime (qHS) OU - Plan for new baseline HVF following CEIOL OU Assessment & Plan (01/28/2020 11:58 AM CDT): IOP well controlled with latanoprost qhs OU. CPM. Update testing s/p CE/IOL. Assessment & Plan (07/10/2019 2:59 PM GLASSWARE VERIFIER): Stable on OCT and VF today. IOP acceptable on 1 class. CPM with latanoprost monotherapy. F/u in 6 months for IOP ck. Assessment & Plan (12/01/2018 2:55 PM CDT): IOP acceptable on latanoprost QHS OU. CPM. Due for testing in April. RTC X 5-6 months for 24-2 VF + RNFL OCT + DFE Assessment & Plan (05/09/2018 2:18 PM GLASSWARE VERIFIER): IOP borderline high on 1 class. VF and OCT stable. CPM with latanoprost QHS OU. F/u IOP check in 4-6 months Assessment & Plan (01/03/2018 1:13 PM CDT): intraocular pressure (IOP) at goal today. cpm with latanoprost at bedtime (qhs) both eyes (OU). F/u x 4 months for 24-2 visual field (VF)/RNFL OCT/DFE. 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 09/02/2016 -Patient is not pacemaker dependent Presence of cardiac pacemaker 12/20/2017 Assessment & Plan (02/12/2025 2:06 PM CDT): -Dual chamber pacemaker is functioning appropriately as programmed -Lead impedances, sensing, and thresholds are stable -No programming changes -Continue remote monitoring quarterly Assessment & Plan (08/14/2024 2:19 PM GLASSWARE VERIFIER): -Dual chamber pacemaker is functioning appropriately as programmed -Lead impedances, sensing, and thresholds are stable -No programming changes -Continue remote monitoring quarterly Assessment & Plan (06/05/2024 4:17 PM GLASSWARE VERIFIER): -Dual chamber pacemaker is functioning appropriately as programmed -Lead impedances, sensing, and thresholds are stable -No programming changes -Continue remote monitoring quarterly History of aortic valve replacement 09/29/2016 Overview (01/07/2023): Last Assessment & Plan: History of severe s/p TAVR in 2017. Last TTE in June with increased gradients across AVR however mean only 17 mmHg with peak of 27 mmHg with TY of 1.2 cm2 -Repeat TTE showing stable gradients as per above -continue aspirin, clopidogrel and atorvastatin Assessment & Plan (11/25/2021 1:46 PM CDT): History of severe s/p TAVR in 2017. Last TTE in June with increased gradients across AVR however mean only 17 mmHg with peak of 27 mmHg with TY of 1.2 cm2 -Repeat TTE showing stable gradients as per above -continue aspirin, clopidogrel and atorvastatin Assessment & Plan (11/24/2021 11:07 AM CDT): History of severe s/p TAVR in 2017. Last TTE in June with increased gradients across AVR however mean only 17 mmHg with peak of 27 mmHg with TY of 1.2 cm2 -Repeat TTE showing stable gradients as per above -Continue aspirin, clopidogrel and atorvastatin Assessment & Plan (11/23/2021 9:59 AM CDT): History of severe s/p TAVR in 2017. Last TTE in June with increased gradients across AVR however mean only 17 mmHg with peak of 27 mmHg with TY of 1.2 cm2 -Repeat TTE showing stable gradients as per above -Continue aspirin, clopidogrel and atorvastatin Assessment & Plan (11/22/2021 12:42 PM CDT): History of severe s/p TAVR in 2017. Last TTE in June with increased gradients across AVR however mean only 17 mmHg with peak of 27 mmHg with TY of 1.2 cm2. -Repeat TTE showing stable gradients as per above -Continue aspirin, clopidogrel and atorvastatin Assessment & Plan (11/21/2021 11:41 AM CDT): History of severe s/p TAVR in 2017. Last TTE in June with increased gradients across AVR however mean only 17 mmHg with peak of 27 mmHg with TY of 1.2 cm2. -Repeat TTE showing stable gradients as per above -Continue aspirin, clopidogrel and atorvastatin Assessment & Plan (11/20/2021 12:13 PM CDT): History of severe s/p TAVR in 2017. Last TTE in June with increased gradients across AVR however mean only 17 mmHg with peak of 27 mmHg with TY of 1.2 cm2. -Repeat TTE yesterday showing stable gradients as per above -Continue aspirin, clopidogrel and atorvastatin Assessment & Plan (11/19/2021 10:22 AM CDT): History of severe s/p TAVR in 2017. Last TTE in June with increased gradients across AVR however mean only 17 mmHg with peak of 27 mmHg with YT of 1.2 cm2. -Continue aspirin, clopidogrel and atorvastatin -Repeat TTE Aortic valve stenosis 06/08/2016 Chronic obstructive pulmonary disease 03/26/2015 Diabetes mellitus 11/10/2013 Overview (07/01/2022): DMII WO CMP UNCNTRLD DMII WO CMP UNCNTRLD Last Assessment & Plan: Stable with no diabetic retinopathy on dilated exam today. Stressed the importance of glycemic control in preventing diabetic eye disease. Assessment & Plan (09/07/2024 10:30 AM CDT): No diabetic retinopathy and no macular edema on dilated exam today. Stressed the importance of glycemic control in preventing diabetic eye disease. Repeat dfe annually. x Assessment & Plan (03/15/2024 4:11 PM CDT): Repeat DFE at f/u in 6 mos. Assessment & Plan (09/08/2023 3:34 PM CDT): No diabetic retinopathy and no macular edema on dilated exam today. Stressed the importance of glycemic control in preventing diabetic eye disease. Assessment & Plan (12/04/2021 3:41 PM CDT): Stable with no diabetic retinopathy on dilated exam today. Stressed the importance of glycemic control in preventing diabetic eye disease. Assessment & Plan (11/25/2021 3:08 PM CDT): Hemoglobin A1c 8.7 on admission -Continue home lantus 40 units daily + SSI -Carb consistent diet -Accuchecks Assessment & Plan (11/23/2021 9:57 AM CDT): Hemoglobin A1c 8.7 on admission -Continue home lantus 40 units daily + SSI -Carb consistent diet -Accuchecks Assessment & Plan (11/22/2021 12:25 PM CDT): Hemoglobin A1c 8.7 on admission -Continue home lantus 40 units daily + SSI -Carb consistent diet -Accuchecks Assessment & Plan (11/21/2021 11:37 AM CDT): Hemoglobin A1c 8.7 on admission -Continue home lantus 40 units daily + SSI -Carb consistent diet -Accuchecks Assessment & Plan (11/20/2021 12:10 PM CDT): -Hemoglobin A1c 8.7 on admission -Continue home lantus 40 units daily with lispro 15 units BID with meals + SSI -Carb consistent diet -Accuchecks Assessment & Plan (11/19/2021 10:18 AM CDT): -Hemoglobin A1c 8.7 on admission -Continue home lantus 40 units daily with lispro 15 units BID with meals -Add SSI -Carb consistent diet -Accuchecks Assessment & Plan (07/17/2021 11:22 AM GLASSWARE VERIFIER): dfe at f/u in 4 mos. Assessment & Plan (03/13/2021 10:46 AM CDT): No DFE today. No retinopathy on DFE at last visit. F/u with annual DFE. Assessment & Plan (11/07/2020 11:39 AM CDT): No diabetic retinopathy on dilated exam today. Stressed the importance of glycemic control in preventing diabetic eye disease. Assessment & Plan (07/16/2020 11:48 AM GLASSWARE VERIFIER): - No DR/DME on DFE today - Continue good BP/BG management - Annual DFEx Assessment & Plan (03/11/2020 12:34 PM CDT): - No DR/DME - Continue good BP/BG control - Annual DFEx Assessment & Plan (01/28/2020 11:58 AM CDT): Last DFE in 06/2019. No diabetic retinopathy at that time. Glycemic control. Assessment & Plan (07/10/2019 2:59 PM GLASSWARE VERIFIER): No diabetic retinopathy on dilated exam today. Stressed the importance of glycemic control in preventing diabetic eye disease. 2 Assessment & Plan (12/01/2018 2:55 PM CDT): Hx of poor control, no hx of retinopathy, due for dfe next visit. RTC in 5-6 months for DFE. Assessment & Plan (05/09/2018 2:18 PM GLASSWARE VERIFIER): Stressed the importance of glycemic control in preventing diabetic eye disease. 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 Overview (09/30/2016): Mononeuritis Multiplex Hypertension 11/10/2013 Overview (01/02/2018): BENIGN HYPERTENSION History of pulmonary embolism 11/10/2013 Overview (09/30/2016): Personal History of Pulmonary Embolism Hyperlipidemia 11/10/2013 Overview (01/02/2018): MIXED HYPERLIPIDEMIA Congestive heart failure 11/10/2013 Overview (09/30/2016): CHF (Congestive Heart Failure) Obstructive sleep apnea 11/10/2013 Overview (10/01/2016): Sleep Apnea Seizure 11/10/2013 Overview (01/07/2023): Seizure Seizure Last Assessment & Plan: -continue home Keppra Assessment & Plan (11/25/2021 1:46 PM CDT): -continue home Keppra Assessment & Plan (11/24/2021 11:07 AM CDT): -Continue home Keppra 1,000 mg BID Assessment & Plan (11/23/2021 9:59 AM CDT): -Continue home Keppra 1,000 mg BID Assessment & Plan (11/22/2021 12:42 PM CDT): -Continue home Keppra 1,000 mg BID Assessment & Plan (11/21/2021 11:41 AM CDT): -Continue home Keppra 1,000 mg BID Assessment & Plan (11/20/2021 12:14 PM CDT): -Continue home Keppra 1,000 mg BID Assessment & Plan (11/19/2021 10:22 AM CDT): -Continue home keppra 1,000 mg BID Obstructive sleep apnea of adult 11/10/2013 Overview (01/07/2023): Sleep Apnea Chronic diastolic heart failure 11/09/2010 Diabetic nephropathy 04/29/2009 Morbid obesity 04/29/2009 Pulmonary embolism 04/29/2009 Epilepsy without status epilepticus, 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 D/c prednisolone. Update SRx. Assessment & Plan (10/08/2020 5:55 AM CDT): POW #1 s/p CE/PCIOL OD - Doing well - D/C ofloxacin in 1 week - Taper prednisolone QID -> TID -> BID -> qday, per week - Reviewed signs/symptoms endophthalmitis, RT/RD; patient to call immediately if any worsening vision, pain, redness, flashes/floaters/curtains. - Avoid lifting/bending/swimming for one more week. Protective eyewear during day. Okay to discontinue Meadows shield at night. - RTC 1 month for DFEx, MRx Assessment & Plan (10/03/2020 4:55 PM CDT): POD #0 s/p CE/PCIOL OD - Doing well - Prednisolone QID OD - Ofloxacin QID OD - Reviewed signs/symptoms endophthalmitis, RT/RD; patient to call immediately if any worsening vision, pain, redness, flashes/floaters/curtains - No lifting/bending/swimming. Meadows shield while sleeping, protective eyewear during day. 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 Spherical equivalent of -0.75 is close to refractive target of -1.00 OS. - No RT/RD on DFEx today - Hold on MRx pending CEIOL OD Assessment & Plan (06/11/2020 7:20 AM GLASSWARE VERIFIER): POW #1 s/p CE/PCIOL OS - Doing well - D/C ofloxacin in 1 week - Taper prednisolone QID -> TID -> BID -> qday, per week - Reviewed signs/symptoms endophthalmitis, RT/RD; patient to call immediately if any worsening vision, pain, redness, flashes/floaters/curtains. - Avoid lifting/bending/swimming for one more week. Protective eyewear during day. Okay to discontinue Meadows shield at night. - RTC 1 month for Shaniqua Decker Assessment & Plan (06/06/2020 1:35 PM GLASSWARE VERIFIER): POD #0 s/p CE/PCIOL OS - Doing well - Prednisolone QID OS - Ofloxacin QID OS - Continue Xal at bedtime (qHS) OU - Reviewed signs/symptoms endophthalmitis, RT/RD; patient to call immediately if any worsening vision, pain, redness, flashes/floaters/curtains - No lifting/bending/swimming. Meadows shield while sleeping, protective eyewear during day. - RTC 1 week Combined forms of age-relate d cataract, left eye 03/26/2020 06/06/2020 Overview (03/26/2020): Added automatically from request for surgery [id number] Combined forms of age-relate d cataract of right eye 01/03/2018 10/03/2020 Assessment & Plan (07/16/2020 11:46 AM GLASSWARE VERIFIER): - Visually significant and patient desires CEIOL OD. - Reviewed R/B/A of CEIOL, including but not limited to infection, bleeding, persistent inflammation, diplopia, ptosis, macular edema, need for further surgeries or procedures, need for spectacle correction after surgery, possible loss of vision, possible loss of the eye, and risks of anesthesia. - The patient understands these risks and wishes to proceed. - Target refraction was discussed with the patient. We discussed near, distance, and monovision; we also discussed multifocal and toric lenses. The patient elected to target -0.25 (wants slightly more distance vision for his dominant right eye). Assessment & Plan (06/11/2020 11:05 AM GLASSWARE VERIFIER): - Visually significant but patient wishes to hold on scheduling CEIOL - Plan to discuss at next visit Assessment & Plan (03/12/2020 12:04 PM CDT): - Visually significant and patient desires CEIOL, OS first - See separate A/P in this note Assessment & Plan (01/28/2020 11:57 AM CDT): Visually significant. Pt wishes to pursue cataract surgery. Schedule for evaluation with Dr. Flood, next available. Of note, pt has mild OAG. Offered consult with glaucoma service to discuss CE/IOL/MIGS but pt prefers standard CE/IOL as less invasive. Assessment & Plan (07/10/2019 2:59 PM GLASSWARE VERIFIER): Worsening objective and subjective vision. Pt still wants to wait on CE/IOL consult. Provided information regarding cataracts and cataract surgery. Will re-visit at f/u in 6 mos. Assessment & Plan (12/01/2018 2:56 PM CDT): Visually significant. Discussed cataract evaluation vs observation. Pt elects observation at present. Re-evaluate x 6 months at pt request. Assessment & Plan (05/09/2018 2:18 PM GLASSWARE VERIFIER): Visually significant. Not functionally limiting per patient. Call for cat eval prn. Assessment & Plan (01/03/2018 1:14 PM CDT): Offered consult. Pt elects observation at present. Encounters Date Type Department Care Team Description 02/12/2025 1:00 PM CDT Office Visit [facility] Cardiology [address] [place] [address] 8th [place] [address] [place] [address] Natalie Maher NP CHB (complete heart block) (Primary Dx); At risk for amiodarone toxicity with halfway use; PVC (premature ventricular contraction); Other cardiomyopathy; Atrioventricular block, complete (HCC); Presence of cardiac pacemaker 02/12/2025 12:30 PM CDT Ancillary Procedure [facility] Medicine Cardiology [address] [place] [address] 8th [place] [address] [place] [address] CHB (complete heart block) (Primary Dx); Fitting or adjustment of cardiac pacemaker 02/12/2025 Results Follow-Up [facility] Medicine Cardiology [address]th [place] [address] [place] [address] Natalie Maher, KASSI ECG 12 lead 02/05/2025 Telephone [facility] Epilepsy [address] 6th [place] [address] [place] [address] Jeff Valenzuela MD PhD Med Refill 01/29/2025 Orders Only [facility] SLEEP Scanning, Provider 01/18/2025 Telephone [facility] Cardiology [address]th [place] [address] [place] [address] Milvia Medina 01/15/2025 11:00 AM CDT Office Visit [facility] Radiation Oncology [address] [place] [address] Nandini Tineo NP Prostate CA (HCC) (Primary Dx) 01/14/2025 Telephone [facility] Neuro Muscle [address] 6th [place] [address] [place] [address] Jimmy Wiseman RN 01/09/2025 Telephone [facility] Neuro Sleep [address] [place] [phone] Richa Duran MD 01/02/2025 11:30 AM CDT Office Visit [facility] Neuro Sleep [address] [place] [id number] Richa Duran MD PERI (obstructive sleep apnea) (Primary Dx) 01/01/2025 Telephone [facility] Neuro Muscle [address] [place] [address] [place] [address] Velma Khan for Prev Genetics' [id number], Neuro NavigATTR Neuropathy P 12/26/2024 Telephone [facility] Transplant Heart [address] [facility] [address] Mailstop [id number] [place] [address] Elina Trevizo RN 12/25/2024 Telephone [facility] Medicine Neuro Muscle [address] [facility] Medicine 6th [place] [address] [place] [address] Stephanie Sierra MD PhD 12/06/2024 12:30 PM CDT Lab [facility] Advanced Medicine ([facility]) [address] [place] [address] Axonal sensorimotor neuropathy 12/06/2024 10:00 AM CDT Office Visit [facility] Medicine Neuro Muscle [address] [facility] [address]th [place] [address] [place] [address] Stephanie Sierra MD PhD Axonal sensorimotor neuropathy (Primary Dx) from Last 3 Months Immunizations Immunization Administration Dates Next Due H1N1 All Forms 06/24/2009 Influenza, Quadrivalent, Ibis l Culture-based MDCK, Preservative Free, Antibiotic Free, Intramuscular 03/29/2018 Influenza, Quadrivalent, Hig h Dose, Preservative Free, Intrr 03/27/2020 Influenza, Trivalent, High D ose, Split, Preservative Free, Intramuscular 03/27/2020 Influenza, Trivalent, Preservative Free, Intramu scular 03/27/2009 Influenza, Unspecified 03/25/2021,04/10/2019 Surgical History Surgery Date Site/Laterality Comments BRAIN SURGERY 1950 - 06/26/1953 childhood. removal of cyst AORTIC VALVE REPLACEMENT A-V CARDIAC PACEMAKER INSERTION BACK SURGERY 06/27/2013 - 06/26/2014 COLONOSCOPY CATARACT EXTRACTION 05/27/2020 - 06/26/2020 Left Medical History Medical History Date Comments Epilepsy without status epil epticus, not intractable (HCC) Epilepsy - (Added by TW Conv ) Personal history of other di seases of the respiratory system History of restrictive lung disease - mild (Added by TW Conv) Glaucoma Diabetes mellitus (HCC) Prostate cancer (HCC) History of radiation therapy pro state [place] Sleep apnea uses CPAP Oxygen dependent 4L at hs Family History Medical History Relation Name Comments Lung cancer Brother 1 Dementia Brother 2 Dementia Brother 3 Diabetes Father Hypertension Father Hypertension - (Added by TW Conv) Seizures Father Seizure disorde r; Alzheimer's disease Mother Alzheime r's Disease; Hyperlipidemia Mother Hyperlipidemi a; Hypertension Mother Hypertension; Stroke Mother Stroke Syndrome - (Added by TW Conv) Cancer Other 1 Family history of malignant neoplasm - breast-grandmother at age 85 (Added by TW Conv) Lung disease Other 2 Family history of lung disease - Relation: Uncle (Added by TW Conv) Coronary artery disease Sister 1 Dementia Sister 2 Dementia Sister 3 Relation Name Status Comments Brother 1 Brother 2 Brother 3 Father Mother Other 1 Other 2 Sister 1 Sister 2 Sister 3 Social History Tobacco Use Types Packs/Day Years Used Date Smoking Tobacco: Never Smokeless Tobacco: Never Tobacco Cessation:Counseling Given: Not Answered Alcohol Use Standard Drinks/Week Comments Yes 1 [...] on file Legal Sex Male 11:34 PM GLASSWARE VERIFIER Gender Identity Not on file Sexual Orientation Not on file Obstetrics History Last Filed Vital Signs Vital Sign Reading Time Taken Comments Blood Pressure 154/81 02/12/2025 12:37 PM CDT Pulse 60 02/12/2025 12:37 PM CDT Temperature 36.9 C (98.5 F) 01/02/2025 11:14 AM CDT Respiratory Rate 18 04/04/2024 12:41 PM CDT Oxygen Saturation 98% 02/12/2025 12:37 PM CDT Inhaled Oxygen Concentration - - Weight 84.6 kg (186 lb 9.6 oz) 02/12/2025 12:37 PM CDT Height 182.9 cm (6') 02/12/2025 12:37 PM CDT Body Mass Index 25.31 02/12/2025 12:37 PM CDT Plan of Treatment Health Maintenance Due Date Last Done Comments Albumin Creatinine Ratio, Urine 1950 Colon Cancer Screening-Colonoscopy 1950 Depression Screening 1950 Hepatitis C Screening 1950 Foot Exam 1950 DTaP/Tdap/Td Vaccine (1 - Tdap) 10/25/1963 Hepatitis B Screening 1970 Pneumococcal vaccine 65+ (1 of 2 - PCV) 10/25/1971 Zoster Vaccine (1 of 2) 2002 Well Visit 65+ 2017 Hemoglobin A1C 05/21/2022 11/18/2021 Fall Risk Assessment 11/26/2022 11/26/2021 Lipid Panel 08/02/2024 08/02/2023, 10/26, 09/01/2016, Additional history exists Influenza Vaccine (#1) 2025 , 03/27/2020, 03/27/2020, Additional history exists eGFR 06/05/2025 06/05/2024, 10/25, 10/28/2022, Additional history exists Dilated Eye Exam 09/07/2025 09/07/2024, , 07/01/2022, Additional history exists Prostate Cancer Screening-PSA 12/07/2026, 02/17/2024, 08/02/2023, Additional history exists Medical Devices Implanted Type Area Train Brake Operator Device Identifier Shelf Expiration Date Model / Serial / Lot [employer] Ra Lead ()-2016 Implanted:02/2017 by Samir Cao MD (Quantity not on file) Lead Chest [employer] / [id number] / Description:This CIED system is NOT MRI Conditional, since the pulse generator and RA lead are both untested for MR safety. Consequently, this combination of parts has NOT been tested for MR safety or FDA approved for MR scanning. [employer] Rv Lead ([id number])-09/02/2016 Implanted:02/2017 by Samir Cao MD (Quantity not on file) Lead Chest [employer] 5 8 / [id number] / Description:This CIED system is NOT MRI Conditional, since the pulse generator and RA lead are both untested for MR safety. Consequently, this combination of parts has NOT been tested for MR safety or FDA approved for MR scanning. [employer] Sn60wf.220 Acrysof Iq Natural Stableforce Acrysert 6mm 13mm 1 Piece Foldable - [id number] - [id number] Implanted:Qty: 1 on 10/03/2020 by Allyson Flood MD PhD at [facility] Lens Right: Eye [employer] [id number] 05/05/2025 SN60WF.2 / [id number] / 0 [employer] Pacemaker (2240)- 7 Implanted:030 02/2017 by Samir Cao MD (Quantity not on file) Pacemaker Left: Chest [employer] 2240 / [id number] / Description:This CIED system is NOT MRI Conditional, since the pulse generator and RA lead are both untested for MR safety. Consequently, this combination of parts has NOT been tested for MR safety or FDA approved for MR scanning. [employer] Sn60wf.225 Acrysof Iq Natural Stableforce Acrysert 6mm 13mm 1 Piece Foldable - [id number] - [id number] Implanted:Qty: 1 on 06/06/2020 by Allyson Flood MD PhD at [facility] Left: Eye [employer] [id number] 10/13/2024 SN60WF.2 [id number] / Procedures Procedure Name Priority Date/Time Associated Diagnosis Comments ECG 12-LEAD Routine 02/12/2025 12:33 PM CDT CHB (complete heart block) SLEEP LAB/STUDY - RESULT 01/29/2025 4:58 PM CDT NEUROMUSCULAR SPECIMEN TRACKING OUTPATIENT Routine 12/09/2024 2:13 PM CDT Axonal sensorimotor neuropathy PSA DIAGNOSTIC Routine 12/07/2024 2:05 PM CDT Prostate CA (HCC) IMMUNOTYPING Routine 12/06/2024 11:18 AM CDT Axonal sensorimotor neuropathy CHAO QUALITATIVE WITH REFLEX TO CHAO QUANTITATIVE Routine 12/06/2024 11:18 AM CDT Axonal sensorimotor neuropathy AZAR ANTIBODY EVALUATION WITH REFLEX Routine 12/06/2024 11:18 AM CDT Axonal sensorimotor neuropathy MYELOPEROXIDASE ANTIBODY Routine 12/06/2024 11:18 AM CDT Axonal sensorimotor neuropathy PROTEINASE-3 ANTIBODY Routine 12/06/2024 11:18 AM CDT Axonal sensorimotor neuropathy IGA Routine 12/06/2024 11:18 AM CDT Axonal sensorimotor neuropathy IGG Routine 12/06/2024 11:18 AM CDT Axonal sensorimotor neuropathy IGM Routine 12/06/2024 11:18 AM CDT Axonal sensorimotor neuropathy VITAMIN B6 Routine 12/06/2024 11:18 AM CDT Axonal sensorimotor neuropathy VITAMIN B12 Routine 12/06/2024 11:18 AM CDT Axonal sensorimotor neuropathy METHYLMALONIC ACID, SERUM Routine 12/06/2024 11:18 AM CDT Axonal sensorimotor neuropathy VITAMIN B1 Routine 12/06/2024 11:18 AM CDT Axonal sensorimotor neuropathy COPPER, SERUM Routine 12/06/2024 11:18 AM CDT Axonal sensorimotor neuropathy VITAMIN E Routine 12/06/2024 11:18 AM CDT Axonal sensorimotor neuropathy RPR Routine 12/06/2024 11:18 AM CDT Axonal sensorimotor neuropathy HIV 1/2 ANTIBODY PLUS P24 ANTIGEN Routine 12/06/2024 11:18 AM CDT Axonal sensorimotor neuropathy NEUROMUSCULAR TESTING Routine 12/06/2024 12:00 AM CDT Axonal sensorimotor neuropathy COMPREHENSIVE METABOLIC PANEL Routine 06/05/2024 2:49 PM GLASSWARE VERIFIER CHB (complete heart block) (HCC) PVC (premature ventricular contraction) LIPID PANEL Routine 08/02/2023 HEMOGLOBIN A1C Routine 11/18/2021 10:23 PM CDT from Last 3 Months or Most Recently Relevant to Health Maintenance Results * ECG 12 lead (02/12/2025 12:33 PM CDT) us Natalie Maher COMMUNICATIONS WRITER ECG ORDERABLES Edited Re sult - Final * SLEEP LAB/STUDY - RESULT (01/29/2025 4:58 PM CDT) us Provider Scanning Final Result * Neuromuscular Specimen Tracking Outpatient Blood (12/09/2024 2:13 PM CDT) Blood Narrative [facility] - 12/09/2024 2:13 PM CDT Blood draw complete us Stephanie Sierra MD PhD LAB BLOOD ORDERABLES Final Result [facility] [place] [address] * PSA diagnostic (12/07/2024 2:05 PM CDT) Pathologist [facility] PSA 0.3 0.0 - 4.0 ng/mL [facility] - 01 Comment: Dian ECLIA methodology. According to the [employer], Serum PSA should decrease and remain at undetectable levels after radical prostatectomy. The AUA defines biochemical recurrence as an initial PSA value 0.2 ng/mL or greater followed by a subsequent confirmatory PSA value 0.2 ng/mL or greater. Values obtained with different assay methods or kits cannot be used interchangeably. Results cannot be interpreted as absolute evidence of the presence or absence of malignant disease. Blood 12/07/2024 2:05 PM CDT 12/07/2024 Narrative [facility] - 12/10/2024 4:11 PM CDT Performed at: [address] [place] [id number] Collection Administrator: Chi Echavarria PhD, Phone: [phone] Nandini Tineo COMMUNICATIONS WRITER LAB BLOOD ORDERABLES Final Result [facility] - 01 * Immunotyping, serum with interpretation (12/06/2024 11:18 AM CDT) Immunosubtraction Please see comment Comment: NO PARAPROTEIN DETECTED Reviewed and signed by Arpan Najera MD, PhD 12/07/2024 Blood 12/06/2024 11:1 8 AM CDT 12/06/2024 11:50 AM CDT Stephanie Sierra MD PhD LAB BLOOD ORDERABLES Final Result Performing Organization Address [facility] Co de Phone Number [facility] Department [place] [address] * CHAO ab ql w/rflx to CHAO qn (12/06/2024 11:18 AM CDT) CHAO Negative Comment: Interpretive Data Normal range for CHAO Qualitative Antibody = Negative. 1. CHAO is performed using indirect immunofluorescence against HEp-2 cells 2. CHAO titers are performed on all positive qualitative results. 3. A significantly positive CHAO result is defined as a positive nuclear fluorescence at a titer of 1:80 or greater. 4. 15% of normal people above age 65 have significantly positive CHAO results. 5% or less of normal people age 65 or under have significantly positive CHAO results. Current interpretive data was last revised on 2020. Blood 12/06/2024 11:1 8 AM CDT 12/06/2024 11:50 AM CDT Stephanie Sierra MD PhD LAB BLOOD ORDERABLES Final Result Performing Organization Address [facility] Co de Phone Number [facility] Department [place] [address] * AZAR ab eval w/reflex (12/06/2024 11:18 AM CDT) AZAR ab Negative Negative Comment: Interpretive Data Positive Screens will be reflexed to specific testing for Antibodies against the following antigens: Bailey-1 Ab, STATION ATTENDANT Ab, Scl-70 Ab, Rivas Ab, SS-A/Ro Ab, and SS- B/La Ab. Further testing for dsDNA, Centromere, or Ribosomal P antibodies is suggested in patient with a positive screen and negative specific antibodies. Current interpretive data was last revised on 2022. Blood 12/06/2024 11:1 8 AM CDT 12/06/2024 11:50 AM CDT Stephanie Sierra MD PhD LAB BLOOD ORDERABLES Final Result Performing Organization Address [facility] Co de Phone Number [facility] [place] [employer] [place] [address] * PR3 - proteinase 3, Ab (12/06/2024 11:18 AM CDT) Proteinase 3 ab <0.2 <=0.9 Ab Index Comment: Interpretive Data Negative: <1 Ab Index Positive: > or = 1 Ab Index Current interpretive data was last revised on 2016. Blood 12/06/2024 11:1 8 AM CDT 12/06/2024 11:50 AM CDT Stephanie Sierra MD PhD LAB BLOOD ORDERABLES Final Result Performing Organization Address [facility] Co de Phone Number [facility] [place] [employer] [place] [address] * MPO - myeloperoxidase antibody (12/06/2024 11:18 AM CDT) Myeloperoxidase ab <0.2 <=0.9 Ab Index Comment: Interpretive Data Negative: <1 Ab Index Positive: > or = 1 Ab Index Current interpretive data was last revised on 2016. Blood 12/06/2024 11:1 8 AM CDT 12/06/2024 11:50 AM CDT Setphanie Sierra MD PhD LAB BLOOD ORDERABLES Final Result Performing Organization Address City/[facility] Co de Phone Number [facility] [place] [address] * HIV 1/2 Antibody plus p24 Antigen Blood (12/06/2024 11:18 AM CDT) Pathologist [facility] HIV 1/2 ab + p24 ag Nonreactive Nonreactive Comment:Nonreactive for HIV- 1 antigen and HIV-1/HIV-2 antibodies. No laboratory evidence of HIV infection. If acute HIV infection is suspected, consider testing for HIV-1 RNA. Current interpretive data was last revised on 22. Blood 12/06/2024 11:1 8 AM CDT 12/06/2024 11:54 AM CDT Stephanie vines MD PhD LAB MICROBIOLOGY - GENERAL ORDERABLES Final Result Performing Organization Address City/[facility] Co de Phone Number [facility] [place] [address] * (ABNORMAL) Methylmalonic acid, serum (12/06/2024 11:18 AM CDT) Pathologist [facility] MMA 0.64(H) <=0.40 nmol/mL [place] ref Lab Comment: In this sample, the concentration of methylmalonic acid (MMA) was elevated. This finding is likely related to vitamin B12 deficiency. ADDITIONAL INFORMATION This test was developed and its performance characteristics determined by [facility] in a manner consistent with CLIA requirements. This test has not been cleared or approved by the U.S. Food and Drug Administration. Test Performed by: [facility] [place] [id number] Collection Administrator: Elizabeth Tolentino Ph.D.; CLIA# [id number] Blood 12/06/2024 11:1 8 AM CDT 12/06/2024 1:14 PM CDT Stephanie Sierra MD PhD LAB BLOOD ORDERABLES Final Result Performing Organization Address [facility] Co de Phone Number [facility] [place] [address] [place] ref [facility] * (ABNORMAL) Copper, serum (12/06/2024 11:18 AM CDT) Pathologist [facility] Copper 149(H) 73 - 129 mcg/dL [place] ref [facility] Comment: ADDITIONAL INFORMATION This test was developed and its performance characteristics determined by [facility] in a manner consistent with CLIA requirements. This test has not been cleared or approved by the U.S. Food and Drug Administration. Test Performed by: [place] [address] Collection Administrator: Elizabeth Tolentino Ph.D.; CLIA# [id number] Blood 12/06/2024 11:1 8 AM CDT 12/06/2024 11:59 AM CDT Stephanie Sierra MD PhD LAB BLOOD ORDERABLES Final Result Performing Organization Address City/[facility] Co de Phone Number [facility] [place] [address] [place] ref [facility] * RPR Blood (12/06/2024 11:18 AM CDT) RPR Nonreactive Nonreactive Blood 12/06/2024 11:1 8 AM CDT 12/06/2024 11:50 AM CDT Stephanie vines MD PhD LAB MICROBIOLOGY - GENERAL ORDERABLES Final Result [facility] Department [place] [address] * Vitamin E (12/06/2024 11:18 AM CDT) Tocopherol (Vit E) 12.5 5.5 - 17.0 mg/L [place] [facility] Comment: ADDITIONAL INFORMATION This test was developed and its performance characteristics determined by [facility] in a manner consistent with CLIA requirements. This test has not been cleared or approved by the U.S. Food and Drug Administration. Test Performed by: [facility] [place] [address] Collection Administrator: Elizabeth Tolentino Ph.D.; CLIA# [id number] Blood 12/06/2024 11:1 8 AM CDT 12/06/2024 11:59 AM CDT Stephanie Sierra MD PhD LAB BLOOD ORDERABLES Final Result Performing Organization Address City/[facility] Co de Phone Number [facility] [place] [address] [place] ref [facility] * Vitamin B1 (12/06/2024 11:18 AM CDT) Thiamine (Vit B1) 100 70 - 180 nmol/L [place] ref [facility] Comment: ADDITIONAL INFORMATION This test was developed and its performance characteristics determined by [facility] in a manner consistent with CLIA requirements. This test has not been cleared or approved by the U.S. Food and Drug Administration. Test Performed by: [place] [address] Collection Administrator: Elizabeth Tolentino Ph.D.; CLIA# [id number] Blood 12/06/2024 11:1 8 AM CDT 12/06/2024 11:59 AM CDT Stephanie Sierra MD PhD LAB BLOOD ORDERABLES Final Result Performing Organization Address City/[facility] Co de Phone Number SHA[facility] [place] [address] [place] ref [facility] * Vitamin B6 (12/06/2024 11:18 AM CDT) Pathologist [facility] Pyridoxal phosphate (Vit B6) 5 5 - 50 mcg/L [place] ref [facility] Comment: ADDITIONAL INFORMATION This test was developed and its performance characteristics determined by [facility] in a manner consistent with CLIA requirements. This test has not been cleared or approved by the U.S. Food and Drug Administration. Test Performed by: [facility] [place] [address] Collection Administrator: Elizabeth Tolentino Ph.D.; CLIA# [id number] Blood 12/06/2024 11:1 8 AM CDT 12/06/2024 11:59 AM CDT Stephanie Sierra MD PhD LAB BLOOD ORDERABLES Final Result Performing Organization Address City/[facility] Co de Phone Number SHA[facility] [place] [address] [place] ref [facility] * (ABNORMAL) IgA (12/06/2024 11:18 AM CDT) Pathologist [facility] Immunoglobulin A 564(H) 70 - 400 mg/dL Blood 12/06/2024 11:1 8 AM CDT 12/06/2024 11:54 AM CDT Stephanie Sierra MD PhD LAB BLOOD ORDERABLES Final Result Performing Organization Address [facility] de Phone Number [facility] [place] [address] * IgM (12/06/2024 11:18 AM CDT) Immunoglobulin M 51 40 - 230 mg/dL Blood 12/06/2024 11:1 8 AM CDT 12/06/2024 11:54 AM CDT us Stephanie Sierra MD PhD LAB BLOOD ORDERABLES Final Result Performing Organization Address [facility] de Phone Number [facility] Department [place] [address] * IgG (12/06/2024 11:18 AM CDT) Immunoglobulin G 1,364 700 - 1,600 mg/dL Blood 12/06/2024 11:1 8 AM CDT 12/06/2024 11:54 AM CDT us Stephanie Sierra MD PhD LAB BLOOD ORDERABLES Final Result Performing Organization Address [facility] Co de Phone Number [facility] Department [place] [address] * Vitamin B12 (12/06/2024 11:18 AM CDT) Vitamin B12 540 230 - 1,250 pg/mL Blood 12/06/2024 11:1 8 AM CDT 12/06/2024 11:54 AM CDT us Stephanie Sierra MD PhD LAB BLOOD ORDERABLES Final Result Performing Organization Address [facility] Co de Phone Number [facility] Department [place] [address] * Neuromuscular Testing Blood (12/06/2024 12:00 AM CDT) Blood (Serum) 12/06/2024 12/06/2024 3:05 PM CDT Narrative [facility] - 12/26/2024 4:18 PM CDT Please click on the PDF link to view the report containing this result us Stephanie Sierra MD PhD LAB PATHOL OGY ORDERABLES Final Result [facility] Room [address] [place] [address] * (ABNORMAL) Comprehensive metabolic panel (06/05/2024 2:49 PM GLASSWARE VERIFIER) Total Protein 7.7 6.1 - 8.4 g/dL [facility] Albumin 4.4 3.5 - 5.2 g/dL [facility] Calcium 9.5 8.6 - 10.3 mg/dL [facility] BUN 21 7 - 23 mg/dL [facility] Total Bilirubin 0.48 0.20 - 1.40 mg/dL [facility] Alk Phos, Total 72 35 - 129 IU/L [facility] AST (SGOT) 28 11 - 47 IU/L [facility] ALT (SGPT) 22 6 - 53 IU/L [facility] Creatinine 1.30 0.70 - 1.30 mg/dL [facility] Sodium 142 135 - 145 mmol/L [facility] Potassium 3.9 3.3 - 5.1 mmol/L [facility] Chloride 99 95 - 107 mmol/L [facility] CO2 Content 31(H) 21 - 29 mmol/L [facility] Glucose 101(H) 64 - 99 mg/dL [facility] Comment: NONFASTING GLUCOSE RANGE = 64-199 mg/dL FASTING GLUCOSE 64 - 99 = NORMAL FASTING GLUCOSE 100 - 125 = IMPAIRED FASTING GLUCOSE FASTING GLUCOSE >=126 = PROVISIONAL DIAGNOSIS OF DIABETES eGFR 58.7(L) >60.0 mL/min/1.7 3 m2 [facility] Blood 06/05/2024 2:49 PM GLASSWARE VERIFIER 06/05/2024 3:32 PM GLASSWARE VERIFIER Natalie Maher COMMUNICATIONS WRITER LAB BLOOD ORDERABLES Shirley l Result [facility] * Lipid panel (08/02/2023) SCRIBED Cholesterol, Total 180 0 - 200 SCRIBED Triglycerides 120 <150 Blood 08/02/2023 Santiago Bey MD LAB BLOOD ORDERABLES F inal Result * (ABNORMAL) Hemoglobin A1c (11/18/2021 10:23 PM CDT) Hgb A1C 8.7(H) 4.0 - 5.6 % [facility] Estimated Average Glucose 203 mg/dL [facility] Comment: The ADA recommends reporting an estimated Average Glucose (eAG) with all Hemoglobin A1c results using the equation derived from a study of 507 normal and diabetic adults. Minority populations were underrepresented and children were not included. (Diabetes Care 2020; 43(S1): S66-S76). The eAG is not equivalent to a fasting glucose. Blood 11/18/2021 10:2 3 PM CDT 11/18/2021 10:53 PM CDT Yanely Carver MD LAB BLOOD ORDERABLES Fi nal Result Performing Organization Address [facility] Co de Phone Number [facility] Department [place] [address] from Last 3 Months or Most Recently Relevant to Health Maintenance Insurance MEDICARE [facility] CHOICE PPO AETNA [facility]ICARE [facility] [employer] ADVANT[employer] CHOICE PPO Advance Directives For more information, please contact: [phone] * Full Code (Latest Code Status on File) Date Activated Date Inactivated Comments 11/18/2021 7:10 PM 11/26/2021 7:48 PM Care Teams Motor Patrol Operator Relationship Specialty Start Date End Date Santiago Bey MD [address] [place] [address] PCP - General Family Practice 01/05/22 Contreras Robbins MD Referring Physician Pulmonary Disease 01/16/19 Allyson Flood MD PhD [address] [place] [address] Consulting Physician Ophthalmology 10/03/20 Fransisca Macedo, RN Registered Nurse Pulmonary Disease 04/06/23
--- OUTSIDE RECORDS SUMMARY | 2025-02-13 11:29 | XMS_ITS | Encounter Summary ---
Author Organization [facility] Address [address] [place] [address] Phone Care Team Providers Care Video Games Mechanic Name Role Phone Cuco Chatman MD Primary Care Provider [phone] Contreras Robbins MD Unavailable [phone] Allyson Flood MD PhD Unavailable [phone] Lenka Quezada TELEGRAPHIC INSTRUMENT SUPERVISOR Unavailable [phone] Santiago Bey MD Primary Care Provider Fransisca Macedo RN Unavailable Unavailabl e Encounter Details Date Type Department Care Team (Latest Contact Info) Description 03/31/2017 Orders Only [facility] CONVERSION Scanning, Provider Social History Tobacco Use Types Packs/Day Years Used Date Smoking Tobacco: Never Assessed Alcohol Use Standard Drinks/Week Comments No 0 (1 standard drink = 0.6 oz pur e alcohol) Sex and Gender Information Value Date Recorded Sex Assigned at Not on file 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 Gender Identity Not on file Sexual Orientation Not on file documented as of this encounter Plan of Treatment Not on file documented as of this encounter Procedures Procedure Name Priority Date/Time Associated Diagnosis Comments PULMONARY FUNCTION TEST (PFT) 03/31/2017 9:28 AM CDT documented in this encounter Results * PULMONARY FUNCTION TEST (PFT) (03/31/2017 9:28 AM CDT) Anatomical Region Laterality Modality PFT us Provider Scanning PFT ORDERABLES Final Result documented in this encounter Visit Diagnoses Not on filedocumented in this encounter Additional Health Concerns Infection Onset Date Last Indicated Resolved Time COVID: Suspected 11/18/2021 11/18/2021 11/19/2021 12:04 AM CDT documented as of this encounter Care Teams Video Games Mechanic Relationship Specialty Start Date End Date Cuco Chatman MD [address] [place] [address] PCP - General 08/10/16 01/04/22 Santiago Bey MD [address] [place] [address] PCP - General Family Practice 01/05/22 Contreras Robbins MD [address] [place] [address] Referring Physician Pulmonary Disease 01/16/19 Allyson Flood MD PhD [address] [place] [address] Consulting Physician Ophthalmology 10/03/20 Lenka Quezada NP [address] [place] [address] Therapeutic Riding Instructor 12/02/21 3 Fransisca Macedo RN Registered Nurse Pulmonary Disease 04/06/23 documented as of this encounter
--- OUTSIDE RECORDS SUMMARY | 2025-02-13 11:29 | XMS_ITS | Encounter Summary ---
Author Organization [facility] Address [address] [place] [address] Phone Care Team Providers Care Leasing Machine Tender Name Role Phone Cuco Chatman MD Primary Care Provider [phone] Contreras Robbins MD Unavailable [phone] [facility]lyson leon MD PhD Unavailable [phone] Lenka Quezada SELF PROPELLED MINING MACHINE OPERATOR Unavailable [phone] Santiago Bey MD Primary Care Provider Fransisca Macedo RN Unavailable Unavailabl e Encounter Details Date Type Department Care Team (Latest Contact Info) Description 01/09/2019 Orders Only [facility] Scanning, Provider Social History Tobacco Use Types Packs/Day Years Used Date Smoking Tobacco: Never Smokeless Tobacco: Never Alcohol Use Standard Drinks/Week Comments No 0 (1 standard drink = 0.6 oz pur e alcohol) Sex and Gender Information Value Date Recorded Sex Assigned at Not on file Legal Sex Male 11:34 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 Gender Identity Not on file Sexual Orientation Not on file documented as of this encounter Plan of Treatment Not on file documented as of this encounter Procedures Procedure Name Priority Date/Time Associated Diagnosis Comments CARDIOLOGY DOCUMENT SCAN 01/09/2019 documented in this encounter Results * SCAN - CARDIOLOGY (01/09/2019) Anatomical Region Laterality Modality Other us Provider Scanning [facility] PROCEDURES Final Result documented in this encounter Visit Diagnoses Not on filedocumented in this encounter Additional Health Concerns Infection Onset Date Last Indicated Resolved Time COVID: Suspected 11/18/2021 11/18/2021 11/19/2021 12:04 AM CDT documented as of this encounter Care Teams Leasing Machine Tender Relationship Specialty Start Date End Date Cuco Chatman MD [address] [place] [address] PCP - General 08/10/16 01/04/22 Santiago Bey MD [address] [place] [address] PCP - General Family Practice 01/05/22 Contreras Robbins MD [address] [place] [address] Referring Physician Pulmonary Disease 01/16/19 Allyson Flood MD PhD [address] [place] [address] Consulting Physician Ophthalmology 10/03/20 Lenka Quezada NP [address] [place] [address] Primary Therapist 12/02/21 3 Fransisca Macedo, RN Registered Nurse Pulmonary Disease 04/06/23 documented as of this encounter
--- OUTSIDE RECORDS SUMMARY | 2025-02-13 11:29 | XMS_ITS | Encounter Summary ---
Author Organization [facility] Address [address] [place] [address] Phone Care Team Providers Care Cabin Service Agent Name Role Phone Cuco Chatman MD Primary Care Provider [phone] Contreras Robbins MD Unavailable [phone] Allyson Flood MD PhD Unavailable [phone] Lenka Quezada TRANSITION PROGRAM MANAGER Unavailable [phone] Santiago Bey MD Primary Care Provider Fransisca Macedo RN Unavailable Unavailabl e Encounter Details Date Type Department Care Team (Late st Contact Info) Description 10/09/2016 Orders Only [facility]INCON[facility] Provider, MD Leigh Ann [address] [place] [address] Social History Tobacco Use Types Packs/Day Years Used Date Smoking Tobacco: Never Assessed Alcohol Use Standard Drinks/Week Comments No 0 (1 standard drink = 0.6 oz pur e alcohol) Sex and Gender Information Value Date Recorded Sex Assigned at Not on file Legal Sex Male 11:34 PM MECHANIC'S ASSISTANT Gender Identity Not on file Sexual Orientation Not on file documented as of this encounter Plan of Treatment Not on file documented as of this encounter Procedures Procedure Name Priority Date/Time Associated Diagnosis Comments CARDIOLOGY REPORT 10/09/2016 documented in this encounter Results * CARDIOLOGY REPORT (10/09/2016) Anatomical Region Laterality Modality Other Narrative 10/09/2016 Ordered by an unspecified provider. us Historical Provider [facility] C[facility] SERVICES GABE MCMULLEN Final Result documented in this encounter Visit Diagnoses Not on filedocumented in this encounter Additional Health Concerns Infection Onset Date Last Indicated Resolved Time COVID: Suspected 11/18/2021 11/18/2021 11/19/2021 12:04 AM CDT documented as of this encounter Care Teams Cabin Service Agent Relationship Specialty Start Date End Date Cuco Chatman MD [address] [place] [address] PCP - General 08/10/16 01/04/22 Santiago Bey MD [address] [facility] [place] [address] PCP - General Family Practice 01/05/22 Contreras Robbins MD [address] [place] [address] Referring Physician Pulmonary Disease 01/16/19 Allyson Flood MD PhD [address] [facility] [place] [address] Consulting Physician Ophthalmology 10/03/20 Lenka Quezada NP [address] [place] [address] Database Manager 12/02/21 3 Fransisca Macedo RN Registered Nurse Pulmonary Disease 04/06/23 documented as of this encounter
--- OUTSIDE RECORDS SUMMARY | 2025-02-13 11:29 | XMS_ITS | Clinical Summary ---
Author Organization [facility] Address [address] [place] [address] Care Team Providers Care Stem Mounter Name Role Phone Maxime Ojeda MD Unavailable [phone] Social History Tobacco Use Types Packs/Day Years Used Date Smoking Tobacco: Never Assessed Sex and Gender Information Value Date Recorded Sex Assigned at Not on file Legal Sex Male 3:26 PM CDT Gender Identity Not on file Sexual Orientation Not on file Plan of Treatment Health Maintenance Due Date Last Done Comments Colorectal Cancer Screening Colonoscopy (10 Years) 1950 Hepatitis C 1970 DTaP, Tdap and Td Vaccines ( 1 - Tdap) 10/25/1971 Pneumococcal Vaccine: 50+ Ye ars (1 of 1 - PCV) 2002 Zoster Vaccines (1 of 2) 2002 Annual Medicare Wellness Visit 2017 COVID-19 Vaccine ( - 2023-2 5 season) 2024 RSV Immunization or 60+ Years (1 - 1-dose 75+ series) 10/25/2027 Meningococcal B Vaccine Aged Out No l onger eligible based on patient's age to complete this topic Meningococcal Vaccine Aged Out No kenya tanner eligible based on patient's age to complete this topic RSV Immunizations Under 20 Months Aged Out No longer eligible based on patient's age to complete this topic Insurance AETNA Care Teams Stem Mounter Relationship Specialty Start Date End Date Maxime Ojeda MD [address] [address] [place] Manager Progressive Care CARDIOVASCULAR DISEASE 06/27/16
--- OUTSIDE RECORDS SUMMARY | 2025-02-13 11:29 | XMS_ITS | Encounter Summary ---
Author Organization [facility] Address [address] [place] [address] Phone Care Team Providers Care Foot Setter Name Role Phone Contreras Robbins MD Unavailable [phone] Allyson Flood MD PhD Unavailable [phone] Santiago Bey MD Primary Care Provider Fransisca Macedo RN Unavailable Unavailabl e Encounter Details Date Type Department Care Team (Late st Contact Info) Description 02/12/2025 Results Follow-Up [facility] Medicine Cardiology [address] [facility] Medicine [address]th [place] [address] [place] [address] Natalie Maher, KASSI [address] [facility] [address] [place] [address] ECG 12 lead Social History Tobacco Use Types Packs/Day Years [...] on file 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 Gender Identity Not on file Sexual Orientation Not on file documented as of this encounter Plan of Treatment Not on file documented as of this encounter Visit Diagnoses Not on filedocumented in this encounter Care Teams Foot Setter Relationship Specialty Start Date End Date Santiago Bey MD [address] [place] [address] PCP - General Family Practice 01/05/22 Contreras Robbins MD Referring Physician Pulmonary Disease 01/16/19 Allyson Flood MD PhD [address] [place] [address] Consulting Physician Ophthalmology 10/03/20 Fransisca Macedo RN Registered Nurse Pulmonary Disease 04/06/23 documented as of this encounter
--- OUTSIDE RECORDS SUMMARY | 2025-02-13 11:29 | XMS_ITS ---
Author Organization [facility] Address [address] [place] [address] Care Team Providers Care Building Code Administrator Name Role Phone Contreras Robbins MD Unavailable [phone] Allyson Flood MD PhD Unavailable [phone] Santiago Bey MD Primary Care Provider Fransisca Macedo RN Unavailable Unavailabl e Active Problems Problem Noted Date Diagnosed Date [...] QTc 492 ms -PFTs scheduled with his rn examiner in Mar 2025 -Annual eye exams Assessment & Plan (08/14/2024 2:18 PM PLASTIC MOULD MAKER): -High burden PVCs - 25% per Holter [...] QTc 494 ms -PFTs scheduled with his rn examiner in Mar 2025 Assessment & Plan (06/05/2024 4:22 PM PLASTIC MOULD MAKER): -High burden PVCs - 25% per recent [...] 12/04/2021 Assessment & Plan (07/01/2022 2:16 PM PLASTIC MOULD MAKER): Stable without detachment. No high risk characteristics. [...] began on Tuesday while he was at [employer]. Symptoms improved with PRN Tylenol. Reports no chronic history of headaches. -Head CT at [facility] ([facility] [place], [place]) on 11/17/21 with no acute intracranial [...] EP will be available by phone at [phone]. -tele Assessment & Plan (11/24/2021 11:07 AM CDT): Patient presented with severe headache and occasional flashes of light in both eyes (but no visual acuity changes) which began on Tuesday while he was at [employer]. Symptoms improved with PRN Tylenol. Reports no chronic history of headaches. -Head CT at O[facility] ([facility] [place], [place]) on 11/17/21 with no acute intracranial [...] EP will be available by phone at [phone]. -tele Assessment & Plan (11/23/2021 9:59 AM CDT): Patient presented with severe headache and occasional flashes of light in both eyes (but no visual acuity changes) which began on Tuesday while he was at [employer]. Symptoms improved with PRN Tylenol. Reports no chronic history of headaches. -Head CT at OSH ([facility] [place], [place]) on 11/17/21 with no acute intracranial [...] EP will be available by phone at [phone]. Assessment & Plan (11/22/2021 12:42 PM CDT): Patient presented with severe headache and occasional flashes of light in both eyes (but no visual acuity changes) which began on Tuesday while he was at [employer]. Symptoms improved with PRN Tylenol. Reports no chronic history of headaches. -Head CT at [facility]SH ([facility] [place], [place]) on 11/17/21 with no acute intracranial [...] EP will be available by phone at [phone]. Assessment & Plan (11/21/2021 11:40 AM CDT): Patient presented with severe headache and occasional flashes of light in both eyes (but no visual acuity changes) which began on Tuesday while he was at [employer]. Symptoms improved with PRN Tylenol. Reports no chronic history of headaches. -Head CT at OSH ([facility] [place], [place]) on 11/17/21 with no acute intracranial [...] EP will be available by phone at [phone]. Assessment & Plan (11/20/2021 12:21 PM CDT): Patient presented with severe headache and occasional flashes of light in both eyes (but no visual acuity changes) which began on Tuesday while he was at [employer]. Symptoms improved with PRN Tylenol. Reports no chronic history of headaches. -Head CT at [facility] ([facility] [place], [place]) on 11/17/21 with no acute intracranial [...] EP will be available by phone at [phone]. Assessment & Plan (11/19/2021 10:28 AM CDT): [...] gradients are stable compared to previous study 18/06 mmHg -Troponin negative, EKG without ischemic changes [...] assess TAVR gradients Bilateral posterior capsular opacification 07/17 Assessment & Plan (09/07/2024 10:30 AM CDT): [...] observe. Assessment & Plan (07/17/2021 11:21 AM PLASTIC MOULD MAKER): OS>OD, accounting for visual complaints. yag cap [...] with QRS duration 184 ms. We discussed DEPARTURE CLERK-D upgrade to primary prevention and cardiac resynchronization. He does not wish to undergo any procedures and continues to decline ICD/DEPARTURE CLERK. -Follow up with Dr Villavicencio Assessment & Plan (08/14/2024 2:20 PM PLASTIC MOULD MAKER): -LVEF<35% despite GDMT, repeatedly declines ICD or DEPARTURE CLERK-P upgrade -Follow up with Dr Villavicencio Assessment & Plan (06/05/2024 4:19 PM PLASTIC MOULD MAKER): -LVEF<35% despite GDMT, repeatedly declines ICD or DEPARTURE CLERK Prostate cancer 11/28/2018 Primary open angle glaucoma [...] OCT. Assessment & Plan (07/01/2022 2:16 PM PLASTIC MOULD MAKER): IOP acceptable on 1 class OU. Stable [...] ck. Assessment & Plan (07/17/2021 11:20 AM PLASTIC MOULD MAKER): IOP excellent today on 1 class. No [...] Avendano Assessment & Plan (07/16/2020 11:47 AM PLASTIC MOULD MAKER): - IOP great today on 1 class (Xal at bedtime (qHS) OU) - Continue Xal at bedtime (qHS) OU for now. Following CEIOL OD, plan to update glaucoma screening and consider trial off Xal. Assessment & Plan (06/11/2020 7:21 AM PLASTIC MOULD MAKER): - Continue Xal at bedtime (qHS) OU [...] CE/IOL. Assessment & Plan (07/10/2019 2:59 PM PLASTIC MOULD MAKER): Stable on OCT and VF today. IOP acceptable on 1 class. CPM with latanoprost monotherapy. F/u in 6 months for IOP ck. Assessment & Plan (12/01/2018 2:55 PM CDT): IOP acceptable on latanoprost QHS OU. CPM. Due for testing in April. RTC X 5-6 months for 24-2 VF + RNFL OCT + DFE Assessment & Plan (05/09/2018 2:18 PM PLASTIC MOULD MAKER): IOP borderline high on 1 class. VF [...] dependent Assessment & Plan (08/14/2024 2:19 PM PLASTIC MOULD MAKER): -Complete heart block post TAVR s/p dual chamber pacemaker 09/02/2016 -Patient is not pacemaker dependent Assessment & Plan (06/05/2024 4:18 PM PLASTIC MOULD MAKER): -Complete heart block post TAVR s/p dual chamber pacemaker 09/02/2016 -Patient is not pacemaker dependent Presence of cardiac pacemaker 12/20/2017 Assessment & Plan (02/12/2025 2:06 PM CDT): -Dual chamber pacemaker is functioning appropriately as programmed -Lead impedances, sensing, and thresholds are stable -No programming changes -Continue remote monitoring quarterly Assessment & Plan (08/14/2024 2:19 PM PLASTIC MOULD MAKER): -Dual chamber pacemaker is functioning appropriately as programmed -Lead impedances, sensing, and thresholds are stable -No programming changes -Continue remote monitoring quarterly Assessment & Plan (06/05/2024 4:17 PM PLASTIC MOULD MAKER): -Dual chamber pacemaker is functioning appropriately as [...] 27 mmHg with TY of 1.2 cm2. -Continue aspirin, clopidogrel and [...] -Accuchecks Assessment & Plan (07/17/2021 11:22 AM PLASTIC MOULD MAKER): dfe at f/u in 4 mos. Assessment & Plan (03/13/2021 10:46 AM CDT): No DFE today. No retinopathy on DFE at last visit. F/u with annual DFE. Assessment & Plan (11/07/2020 11:39 AM CDT): No diabetic retinopathy on dilated exam today. Stressed the importance of glycemic control in preventing diabetic eye disease. Assessment & Plan (07/16/2020 11:48 AM PLASTIC MOULD MAKER): - No DR/DME on DFE today - Continue good BP/BG management - Annual DFEx Assessment & Plan (03/11/2020 12:34 PM CDT): - No DR/DME - Continue good BP/BG control - Annual DFEx Assessment & Plan (01/28/2020 11:58 AM CDT): Last DFE in 06/2019. No diabetic retinopathy at that time. Glycemic control. Assessment & Plan (07/10/2019 2:59 PM PLASTIC MOULD MAKER): No diabetic retinopathy on dilated exam today. Stressed the importance of glycemic control in preventing diabetic eye disease. 2 Assessment & Plan (12/01/2018 2:55 PM CDT): Hx of poor control, no hx of retinopathy, due for dfe next visit. RTC in 5-6 months for DFE. Assessment & Plan (05/09/2018 2:18 PM PLASTIC MOULD MAKER): Stressed the importance of glycemic control in [...] able Overview (03/31/2021): Epilepsy - (Added by JAISON Conv) Current Treatment and Therapy Plans No current plan information found. Past Treatment and Therapy Plans No past plan information found. Lifetime Dose Tracking * Chemical Lifetime Dose Automatic Entry Manual Entr y Fluoro Time 2 minutes 2 minutes 0 minutes Air kerma at the reference point (Ka,r) 14.9 mGy 1 4.9 mGy 0 mGy DLP 666 mGycm 666 mGycm 0 mGycm Resolved Problems Problem Noted Date Diagnosed Date [...] (09/12/2020): Added automatically from request for surgery [id number] S/P cataract extraction, left 06/06/2020 03/13/2021 Assessment & Plan (10/08/2020 12:04 PM CDT): - Doing well (target -1.00 OS for mini-monovision) - MRx at next visit Assessment & Plan (07/16/2020 11:46 AM PLASTIC MOULD MAKER): POM #1 status post (s/p) CEIOL OS - Doing well off drops (gtts). Spherical equivalent of -0.75 is close to refractive target of -1.00 OS. - No RT/RD on DFEx today - Hold on MRx pending CEIOL OD Assessment & Plan (06/11/2020 7:20 AM PLASTIC MOULD MAKER): POW #1 s/p CE/PCIOL OS - Doing [...] month for DFEx, MRx Assessment & Plan (06/06/2020 1:35 PM PLASTIC MOULD MAKER): POD #0 s/p CE/PCIOL OS - Doing [...] (03/26/2020): Added automatically from request for surgery [id number] Combined forms of age-relate d cataract of right eye 01/03/2018 10/03/2020 Assessment & Plan (07/16/2020 11:46 AM PLASTIC MOULD MAKER): - Visually significant and patient desires CEIOL [...] eye). Assessment & Plan (06/11/2020 11:05 AM PLASTIC MOULD MAKER): - Visually significant but patient wishes to [...] invasive. Assessment & Plan (07/10/2019 2:59 PM PLASTIC MOULD MAKER): Worsening objective and subjective vision. Pt still wants to wait on CE/IOL consult. Provided information regarding cataracts and cataract surgery. Will re-visit at f/u in 6 mos. Assessment & Plan (12/01/2018 2:56 PM CDT): Visually significant. Discussed cataract evaluation vs observation. Pt elects observation at present. Re-evaluate x 6 months at pt request. Assessment & Plan (05/09/2018 2:18 PM PLASTIC MOULD MAKER): Visually significant. Not functionally limiting per patient. Call for cat eval prn. Assessment & Plan (01/03/2018 1:14 PM CDT): Offered consult. Pt elects observation at present.
[2025-02-13 13:12] LABS: Cholesterol 194 mg/dL (0-200); HDL Direct 73 mg/dL; Triglycerides 89 mg/dL (<150)
[2025-02-13 13:37] LABS: Alanine Aminotransferase 24 U/L (6-50); Albumin Level 4.5 g/dL (3.5-5.1); Alkaline Phosphatase 75 U/L (38-126); Anion Gap 7 mmol/L (4-12); Aspartate Amino Transferase 47 U/L (17-59); Bilirubin,Total 0.9 mg/dL (0.2-1.3); Blood Urea Nitrogen 20 mg/dL (9-20); Calcium 9.9 mg/dL (8.4-10.2); Carbon Dioxide 39 mmol/L (22-30); Chloride 94 mmol/L (98-107); Estimated Glomerular Filt Rate 42; Glucose 123 mg/dL (65-110); Potassium 3.9 mmol/L (3.4-5.0); Sodium 140 mmol/L (137-145); Total Protein 8.7 g/dL (6.3-8.2)
[2025-02-14 09:08] LABS: TSH 2.020 uIU/mL (0.450-4.500)
== END 2025-02-13 10:55 | disposition home or self-care (01) ==
PROVIDERS: PCP Family Medicine; Visit Provider Family Medicine
DX: E78.5 Hyperlipidemia, unspecified (principal); I44.2 Atrioventricular block, complete; I49.3 Ventricular premature depolarization; Z91.89 Other specified personal risk factors, not elsewhere classified; Z79.899 Other long term (current) drug therapy
CPT/HCPCS: 36415; 80053; 80061; 84439; 84443; 84481; 86376

== ENCOUNTER 2025-04-02 14:51 | Outpatient (CLI) | payer OTHER, SELFPAY ==
--- OUTSIDE RECORDS SUMMARY | 2025-04-02 15:47 | XMS_ITS | Clinical Summary ---
Author Organization [facility] Address [address] [place] [address] Care Team Providers Care Parts Cataloguer Name Role Phone Contreras Robbins MD Unavailable [phone] Allyson Flood MD PhD Unavailable [phone] Santiago Bey MD Primary Care Provider Fransisca Macedo RN Unavailable UnavailAnton Romano Unavailable Unavailable Yordan Arboleda MD Unavailable [phone] Allergies Active Allergy Reactions Criticality Noted Date Comments Latex Itching Low 03/04/2022 Medications albuterol HFA (PROVENTIL HFA,VENTOLIN HFA,PROAIR HFA) 90 mcg/actuation inhalerIndicati ons:Chronic Obstructive Pulmonary Disease Inhale 2 puffs every 4 (four) hours as needed for shortness of breath Active aspirin 81 mg enteric coated tabletIndicatio ns:Myocardial Reinfarction Prevention Take 1 tablet (81 mg total) by mouth every morning Active cholecalciferol (VITAMIN D-3) 2000 unit capsule Take 1 capsule (2,000 Units total) by mouth daily Active semaglutide (Ozempic) 2 mg/dose (8 mg/3 mL) pen injector injection Inject 1 mg under the skin once a week Sundays Active Stiolto Respimat 2.5-2.5 mcg/actuation inhaler INHALE 2 PUFFS BY MOUTH EVERY DAY 4 g 5 11/14/19 24 Active famotidine (PEPCID) 20 mg tablet Take 1 tablet (20 mg total) by mouth daily 01/24/20 24 Active dapagliflozin propanediol (FARXIGA) 10 mg tablet Take 1 tablet (10 mg total) by mouth daily Active spfbojlm-tje-hy lic-vit K-lycop 400-20-300 mcg tablet Take 1 tablet by mouth daily Active azelastine (ASTELIN) 137 mcg (0.1 %) nasal spray ADMINISTER 1-2 SRRAYS INTO EACH NOSTRIL EVERY DAY AT BEDTIME FOR ALLERGY 09/14/19 25 Active fexofenadine (GET) 180 mg tablet Take 1 tablet (180 mg total) by mouth daily 09/14/19 25 Active carvediloL (COREG) 12.5 mg tablet TAKE 1 TABLET BY MOUTH TWICE A DAY WITH FOOD 180 tablet 3 11/23/19 25 Active isosorbide mononitrate ER (IMDUR) 60 mg 24 hr tablet TAKE 1 TABLET BY MOUTH EVERY DAY 90 tablet 3 01/11/20 25 Active clopidogreL (PLAVIX) 75 mg tablet TAKE 1 TABLET BY MOUTH EVERY DAY IN THE MORNING 90 tablet 3 02/06/20 25 Active amiodarone (PACERONE) 200 mg tablet Take 1 tablet (200 mg total) by mouth daily 30 tablet 5 02/13/20 25 026 Active lamoTRIgine (LaMICtal) 100 mg tabletIndicatio ns:Seizure (HCC) Take 1 tablet (100 mg total) by mouth daily 90 tablet 1 02/29/20 25 026 Active latanoprost (XALATAN) 0.005 % ophthalmic solution Administer 1 drop into both eyes nightly 7.5 mL 3 03/22/20 25 Active irbesartan (AVAPRO) 75 mg tablet Take 1 tablet (75 mg total) by mouth daily Active citalopram (CeleXA) 10 mg tablet Take 1 tablet (10 mg total) by mouth daily Active cyanocobalamin, vitamin B-12, 1,000 mcg/mL kit Inject 1 mL into the muscle as instructed every 7 days Sundays Active pyridoxine (VITAMIN B-6) 100 mg tablet Take 1 tablet (100 mg total) by mouth daily Active bumetanide (BUMEX) 1 mg tablet Take 2 tablets (2 mg total) by mouth 2 (two) times a day Take 2 mg (2 tablets) in a.m. and 1 mg (1 tablet) in p.m. 180 tablet 3 03/29/20 Active atorvastatin (LIPITOR) 40 mg tablet Take 1 tablet (40 mg total) by mouth daily 30 tablet 11 03/29/20 Active miscellaneous medical supply misc Administer 4 L into affected nostril(s) nightly O2 With CPAP 025 Discontinued blood-glucose meter kit USE TO TEST ONCE DAILY 11/07/19 22 025 Discontinued blood glucose diagnostic (OneTouch Ultra Test) strip USE TO TEST ONCE DAILY 11/01/19 22 025 Discontinued lancets 30 gauge misc USE TO TEST ONCE DAILY 11/01/19 22 025 Discontinued atorvastatin (LIPITOR) 20 mg tablet Take 1 tablet (20 mg total) by mouth daily 90 tablet 3 08/30/19 025 Discontinued latanoprost (XALATAN) 0.005 % ophthalmic solution Administer 1 drop into both eyes nightly 7.5 mL 3 03/15/20 24 025 Discontinued(R eorder) ergocalciferol (VITAMIN D) 50,000 unit capsule Take 1 capsule (50,000 Units total) by mouth once a week 03/22/20 24 025 Discontinued bumetanide (BUMEX) 1 mg tablet TAKE 1 TABLET BY MOUTH TWICE A DAY 180 tablet 3 11/23/19 25 025 Discontinued syringe with needle, safety 1 mL 25 gauge x 5/8 syringeIndicati ons:Axonal sensorimotor neuropathy,Neur opathy 15 each once a week To be used to administer B12 injection 15 each 01/08/20 25 025 Discontinued cyanocobalamin (Vitamin B-12) 1,000 mcg/mL injectionIndica tions:Axonal sensorimotor neuropathy,Neur opathy INJECT 1 ML INTO THE MUSCLE 3 TIMES A WEEK (TUESDAY,,TUESDAY) FOR 7 DAYS THEN 1ML ONCE A WEEK 15 mL 03/01/20 25 025 Discontinued syringe with needle (BD Tuberculin Syringe) 1 mL 25 gauge x 5/8 syringeIndicati ons:Other specified polyneuropathie s,Polyneuropath y, unspecified USE ONCE A WEEK TO ADMINISTER B12 INJECTION 8 each 1 03/06/20 25 025 Discontinued atorvastatin (LIPITOR) 20 mg tablet Take 1 tablet (20 mg total) by mouth daily 025 Discontinued Active Problems Problem Noted Date Diagnosed Date Elevated brain natriuretic peptide (BNP) level 1 Shortness of breath 03/29/2025 Acute on chronic congestive heart failure, unspecified heart failure type 03/26/2025 PVC (premature ventricular contraction) 06/05/20 24 Assessment [...] QTc 492 ms -PFTs scheduled with his resort host in Mar 2025 -Annual eye exams Assessment & Plan (08/14/2024 2:18 PM BREAST WORKER): -High burden PVCs - 25% per Holter [...] QTc 494 ms -PFTs scheduled with his resort host in Mar 2025 Assessment & Plan (06/05/2024 4:22 PM BREAST WORKER): -High burden PVCs - 25% per recent [...] 12/04/2021 Assessment & Plan (07/01/2022 2:16 PM BREAST WORKER): Stable without detachment. No high risk characteristics. [...] began on Tuesday while he was at jainism. Symptoms improved with PRN Tylenol. Reports no chronic history of headaches. -Head CT at OSH ([facility] in [place], [place]) on 11/17/21 with no acute intracranial [...] EP will be available by phone at [phone]. -tele Assessment & Plan (11/24/2021 11:07 AM CDT): Patient presented with severe headache and occasional flashes of light in both eyes (but no visual acuity changes) which began on Tuesday while he was at jainism. Symptoms improved with PRN Tylenol. Reports no chronic history of headaches. 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 -FONG has resolved--appreciate Neurology assistance -Neurology consulted (appreciate recs): OSH CT head uploaded to [facility]; s/p Headache cocktail: tylenol 650, compazine 5 [...] EP will be available by phone at [phone]. -tele Assessment & Plan (11/23/2021 9:59 AM CDT): Patient presented with severe headache and occasional flashes of light in both eyes (but no visual acuity changes) which began on Tuesday while he was at jainism. Symptoms improved with PRN Tylenol. Reports no chronic history of headaches. -Head CT at OSH ([facility] [place], [place]) on 11/17/21 with no acute intracranial [...] EP will be available by phone at [phone]. Assessment & Plan (11/22/2021 12:42 PM CDT): Patient presented with severe headache and occasional flashes of light in both eyes (but no visual acuity changes) which began on Tuesday while he was at jainism. Symptoms improved with PRN Tylenol. Reports no chronic history of headaches. -Head CT at OSH ([facility] [place], [place]) on 11/17/21 with no acute intracranial [...] EP will be available by phone at [phone]. Assessment & Plan (11/21/2021 11:40 AM CDT): Patient presented with severe headache and occasional flashes of light in both eyes (but no visual acuity changes) which began on Tuesday while he was at jainism. Symptoms improved with PRN Tylenol. Reports no chronic history of headaches. -Head CT at OSH ([facility] [place], [place]) on 11/17/21 with no acute intracranial [...] EP will be available by phone at [phone]. Assessment & Plan (11/20/2021 12:21 PM CDT): Patient presented with severe headache and occasional flashes of light in both eyes (but no visual acuity changes) which began on Tuesday while he was at jainism. Symptoms improved with PRN Tylenol. Reports no chronic history of headaches. -Head CT at OSH ([facility] [place], [place]) on 11/17/21 with no acute intracranial [...] CT images (images pushed from OSH to [facility] and nominated for review on 11/20) -Please [...] EP will be available by phone at [phone]. Assessment & Plan (11/19/2021 10:28 AM CDT): Patient presented with 1 week of severe temporal headache and occasional flashes of light but no visual acuity changes which improved with Tylenol. Reports no chronic history of headaches. -Head CT at OSH ([place]) without any acute changes -Neurology and opthalmology [...] observe. Assessment & Plan (07/17/2021 11:21 AM BREAST WORKER): OS>OD, accounting for visual complaints. yag cap [...] with QRS duration 184 ms. We discussed TRACTOR SWEEPER OPERATOR-D upgrade to primary prevention and cardiac resynchronization. He does not wish to undergo any procedures and continues to decline ICD/TRACTOR SWEEPER OPERATOR. -Follow up with Dr Villavicencio Assessment & Plan (08/14/2024 2:20 PM BREAST WORKER): -LVEF<35% despite GDMT, repeatedly declines ICD or TRACTOR SWEEPER OPERATOR-P upgrade -Follow up with Dr Villavicencio Assessment & Plan (06/05/2024 4:19 PM BREAST WORKER): -LVEF<35% despite GDMT, repeatedly declines ICD or TRACTOR SWEEPER OPERATOR Prostate cancer 11/28/2018 Primary open angle glaucoma (POAG) of both eyes, mild stage 01/03/2018 Assessment & Plan (03/22/2025 10:56 AM CDT): IOP Stable on 1 class. vF stable. CPM with latanoprost qhs OU. F/u in 6 mos for dfe with rnfl/gcc oct. Assessment & Plan (09/07/2024 10:30 AM CDT): [...] OCT. Assessment & Plan (07/01/2022 2:16 PM BREAST WORKER): IOP acceptable on 1 class OU. Stable [...] ck. Assessment & Plan (07/17/2021 11:20 AM BREAST WORKER): IOP excellent today on 1 class. No [...] Avendano Assessment & Plan (07/16/2020 11:47 AM BREAST WORKER): - IOP great today on 1 class (Xal at bedtime (qHS) OU) - Continue Xal at bedtime (qHS) OU for now. Following CEIOL OD, plan to update glaucoma screening and consider trial off Xal. Assessment & Plan (06/11/2020 7:21 AM BREAST WORKER): - Continue Xal at bedtime (qHS) OU [...] CE/IOL. Assessment & Plan (07/10/2019 2:59 PM BREAST WORKER): Stable on OCT and VF today. IOP acceptable on 1 class. CPM with latanoprost monotherapy. F/u in 6 months for IOP ck. Assessment & Plan (12/01/2018 2:55 PM CDT): IOP acceptable on latanoprost QHS OU. CPM. Due for testing in April. RTC X 5-6 months for 24-2 VF + RNFL OCT + DFE Assessment & Plan (05/09/2018 2:18 PM BREAST WORKER): IOP borderline high on 1 class. VF [...] dependent Assessment & Plan (08/14/2024 2:19 PM BREAST WORKER): -Complete heart block post TAVR s/p dual chamber pacemaker 09/02/2016 -Patient is not pacemaker dependent Assessment & Plan (06/05/2024 4:18 PM BREAST WORKER): -Complete heart block post TAVR s/p dual chamber pacemaker 09/02/2016 -Patient is not pacemaker dependent Presence of cardiac pacemaker 12/20/2017 Assessment & Plan (02/12/2025 2:06 PM CDT): -Dual chamber pacemaker is functioning appropriately as programmed -Lead impedances, sensing, and thresholds are stable -No programming changes -Continue remote monitoring quarterly Assessment & Plan (08/14/2024 2:19 PM BREAST WORKER): -Dual chamber pacemaker is functioning appropriately as programmed -Lead impedances, sensing, and thresholds are stable -No programming changes -Continue remote monitoring quarterly Assessment & Plan (06/05/2024 4:17 PM BREAST WORKER): -Dual chamber pacemaker is functioning appropriately as [...] CDT): History of severe s/p TAVR in 2016. [...] preventing diabetic eye disease. Assessment & Plan (03/22/2025 10:56 AM CDT): Repeat DFE at f/u in 6 mos. Assessment & Plan (09/07/2024 10:30 AM CDT): [...] -Accuchecks Assessment & Plan (07/17/2021 11:22 AM BREAST WORKER): dfe at f/u in 4 mos. Assessment & Plan (03/13/2021 10:46 AM CDT): No DFE today. No retinopathy on DFE at last visit. F/u with annual DFE. Assessment & Plan (11/07/2020 11:39 AM CDT): No diabetic retinopathy on dilated exam today. Stressed the importance of glycemic control in preventing diabetic eye disease. Assessment & Plan (07/16/2020 11:48 AM BREAST WORKER): - No DR/DME on DFE today - Continue good BP/BG management - Annual DFEx Assessment & Plan (03/11/2020 12:34 PM CDT): - No DR/DME - Continue good BP/BG control - Annual DFEx Assessment & Plan (01/28/2020 11:58 AM CDT): Last DFE in 06/2019. No diabetic retinopathy at that time. Glycemic control. Assessment & Plan (07/10/2019 2:59 PM BREAST WORKER): No diabetic retinopathy on dilated exam today. Stressed the importance of glycemic control in preventing diabetic eye disease. 2 Assessment & Plan (12/01/2018 2:55 PM CDT): Hx of poor control, no hx of retinopathy, due for dfe next visit. RTC in 5-6 months for DFE. Assessment & Plan (05/09/2018 2:18 PM BREAST WORKER): Stressed the importance of glycemic control in [...] (09/12/2020): Added automatically from request for surgery [id number] S/P cataract extraction, left 06/06/2020 03/13/2021 Assessment & Plan (10/08/2020 12:04 PM CDT): - Doing well (target -1.00 OS for mini-monovision) - MRx at next visit Assessment & Plan (07/16/2020 11:46 AM BREAST WORKER): POM #1 status post (s/p) CEIOL OS - Doing well off drops (gtts). Spherical equivalent of -0.75 is close to refractive target of -1.00 OS. 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 Assessment & Plan (06/11/2020 11:05 AM BREAST WORKER): - Visually significant but patient wishes to [...] invasive. Assessment & Plan (07/10/2019 2:59 PM BREAST WORKER): Worsening objective and subjective vision. Pt still wants to wait on CE/IOL consult. Provided information regarding cataracts and cataract surgery. Will re-visit at f/u in 6 mos. Assessment & Plan (12/01/2018 2:56 PM CDT): Visually significant. Discussed cataract evaluation vs observation. Pt elects observation at present. Re-evaluate x 6 months at pt request. Assessment & Plan (05/09/2018 2:18 PM BREAST WORKER): Visually significant. Not functionally limiting per patient. Call for cat eval prn. Assessment & Plan (01/03/2018 1:14 PM CDT): Offered consult. Pt elects observation at present. Encounters Date Type Department Care Team Description 04/01/2025 TCC Initial Outreach [facility] [address] [place] [id number] Arpan Rothman RN 04/01/2025 Telephone [facility] Card[facility] [address] [facility] [address] [facility] [address]th [place] [address] [place] [phone] Robin Villavicencio MD 03/29/2025 Orders Only [facility] Transplant Heart [address] [facility] [address] Mailstop [id number] [place] [address] Sherrell Laws RN Chronic systolic heart failure (HCC) (Primary Dx) 03/27/2025 TCC Initial Eligibility Review [facility] [address] [place] [address] Arpan Rothman RN 03/26/2025 4:42 PM CDT - 03/30/2025 2:40 PM CDT Hospital Encounter [address] [address] Sorin Erwin MD Saravanan, Pathanjali, MD Bondalapati, Masood Covington MD Acute on chronic congestive heart failure, unspecified heart failure type (HCC) (Primary Dx); Shortness of breath; Elevated brain natriuretic peptide (BNP) level; Acute on chronic heart failure with reduced ejection fraction and diastolic dysfunction (HCC) Discharge Disposition: Discharge to home or self care 03/22/2025 10:30 AM CDT Office Visit [facility] Ophthalmology [facility] [place] [address] Teo Avendano, OD Primary open angle glaucoma (POAG) of both eyes, mild stage (Primary Dx); Type 2 diabetes mellitus without complication, with long-term current use of insulin (HCC); Pseudophakia of both eyes 03/20/2025 11:00 AM CDT Office Visit [facility] [address] [place] [address] 6th [place] [address] [place] [address] Diana Grant MD Mild cognitive impairment (Primary Dx) 02/22/2025 Telephone [facility] Card[facility] [address] [place] [address] 8th [place] [address] [place] [address] Samir Cao MD 02/14/2025 Telephone [facility] [address] [place] [address] 8th [place] [address] [place] [address] Samir Cao MD 02/13/2025 Orders Only [facility] CARDI[facility] Samir Cao MD 02/12/2025 1:00 PM CDT Office Visit [facility] [address] [place] [address] 8th [place] [address] [place] [address] Natalie Maher NP CHB (complete heart block) (Primary Dx); At risk for amiodarone toxicity with fci use; PVC (premature ventricular contraction); Other cardiomyopathy; Atrioventricular block, complete (HCC); Presence of cardiac pacemaker 02/12/2025 12:30 PM CDT Ancillary Procedure [facility] [address] [place] [address] [address]th [place] [address] [place] [address] CHB (complete heart block) (Primary Dx); Fitting or adjustment of cardiac pacemaker 02/12/2025 Results Follow-Up [facility] [address] [facility] 8th [place] [address] [place] [address] Natalie Maher, KASSI ECG 12 lead, Thyroid Function Posey 02/05/2025 Telephone [facility] Epilepsy [address] [facility] 6th [place] [address] [place] [address] Jeff Valenzuela MD PhD Med Refill 01/29/2025 Orders Only [facility] Scanning, Provider 01/25/2025 Orders Only [facility] Cardiology [address] [facility] [address]th [place] [address] [place] [address] Samir Cao MD 01/18/2025 Telephone [facility] Card[facility] [address] [facility] 8th [place] [address] [place] [address] Milvia Medina 01/15/2025 11:00 AM CDT Office Visit [facility] Radiation Oncology [address] [facility] [place] [address] Nandini Tineo NP Prostate CA (HCC) (Primary Dx) 01/14/2025 Telephone [facility] Neuro Muscle [address] [place] [address] [place] [address] Jimmy Wiseman RN 01/09/2025 Telephone [facility] Neuro Sleep [address] [facility] 6th [address] [place] [id number] Richa Duran MD 01/02/2025 11:30 AM CDT Office Visit [facility] Neuro Sleep [address] [place] [id number] Richa Duran MD PERI (obstructive sleep apnea) (Primary Dx) 01/01/2025 Telephone [facility] Neuro Muscle [address] [facility] 6th [place] [address] [place] [address] Velma Khan Rqst for Prev Genetics' SP283, Neuro NavigATTR Neuropathy P from Last 3 Months Immunizations Immunization Administration [...] (Added by TW Conv) Glaucoma Diabetes mellitus Prostate cancer (HCC) History of radiation therapy [...] more drinks on one occasion? Never 09/23/2020 Social Connection and Isolation Panel Answer Date Recorded In a typical week, how many times do you talk on the phone with family, friends, or neighbors? More than three times a week 03/27/2025 How often do you get togethe r with friends or relatives? More than three times a week 03/27/2025 How often do you attend chur ch or amish services? 1 to 4 times per year 03/27/2025 Do you belong to any clubs o r organizations such as jainism groups, unions, fraternal or athletic groups, or school groups? No 03/27/2025 How often do you attend meet ings of the clubs or organizations you belong to? Never 03/27/2025 Are you , , di vorced, , never , or living with a partner? 03/27/2025 Overall Financial Resource Strain (CARDIA) Answe r Date Recorded How hard is it for you to pa y for the very basics like food, housing, medical care, and heating? Not very hard 03/27/2025 Hunger Vital Sign Answer Date Recorded Within the past 12 months, y ou worried that your food would run out before you got the money to buy more. Never true 03/27/20 25 Within the past 12 months, t he food you bought just didn't last and you didn't have money to get more. Never true 03/27/2025 PRAPARE - Transportation Answer Date Re corded In the past 12 months, has l ack of transportation kept you from medical appointments or from getting medications? No 06/2024 In the past 12 months, has l ack of transportation kept you from meetings, work, or from getting things needed for daily living? No 03/27/2025 Housing Stability Vital Sign Answer Toni e Recorded In the last 12 months, was t here a time when you were not able to pay the mortgage or rent on time? No 03/27/2025 In the past 12 months, how m any times have you moved where you were living? 0 03/27/2025 At any time in the past 12 m [facility], were you homeless or living in a fpc (including now)? No 03/27/2025 [facility] Utilities Answer Date Recorded In the past 12 months has th e electric, gas, oil, or water company threatened to shut off services in your home? No 03/27/2025 Personal Safety Answer Date Recorded Have you ever been in or are you currently in a harmful physical or emotional relationship or is someone making you feel afraid or unsafe? Denies 03/26/2025 Sex and Gender Information Value Date Recorded Sex Assigned at Not on file Legal Sex Male 11:34 PM BREAST WORKER Gender Identity Not on file Sexual Orientation Not on file Obstetrics History Last Filed Vital Signs Vital Sign Reading Time Taken Comments Blood Pressure 104/69 03/30/2025 11:45 AM CDT Pulse 60 03/30/2025 11:45 AM CDT Temperature 36.4 C (97.5 F) 03/30/2025 11:45 AM CDT Respiratory Rate 18 03/30/2025 11:4 5 AM CDT Oxygen Saturation 94% 03/30/2025 11: 45 AM CDT Inhaled Oxygen Concentration - - Weight 78.8 kg (173 lb 11.6 oz) 03/30/2025 5:37 AM CDT Height 182.9 cm (6') 03/26/2025 8:25 PM CDT Body Mass Index 23.56 03/26/2025 8:25 PM CDT Plan of Treatment Health Maintenance Due Date Last Done Comments Albumin Creatinine Ratio, Urine 1952 Colon Cancer Screening-Colonoscopy 1950 Depression Screening 1950 Hepatitis C Screening 1950 Foot Exam 1952 DTaP/Tdap/Td Vaccine (1 - Tdap) 10/25/1963 Hepatitis B Screening 1970 Pneumococcal vaccine 65+ (1 of 2 - PCV) 10/25/1971 Zoster Vaccine (1 of 2) 2002 Well Visit 65+ 2017 Influenza Vaccine (#1) 2025 , 03/27/2020, 03/27/2020, Additional history exists Dilated Eye Exam 09/07/2025 09/07/2024, , 07/01/2022, Additional history exists Hemoglobin A1C 09/25/2025 03/27/2025, 06/2024, 11/18/2021 Lipid Panel 03/28/2026 03/28/2025, 11/2023, 11/18/2021, Additional history exists Fall Risk Assessment 03/30/2026 03/30/2025 eGFR 03/30/2026 03/30/2025, 08/2024, 03/28/2025, Additional history exists Prostate Cancer Screening-PSA 12/07/2026, 02/17/2024, 08/02/2023, Additional history exists Medical Devices Implanted Type Area Returned Goods Sorter Device Identifier Shelf Expiration Date Model / Serial / Lot [employer] Lead ()-2016 Implanted:02/2017 by Samir Cao MD (Quantity not on file) Lead Chest [employer] / [id number] 2 / Description:This CIED system is NOT MRI Conditional, since the pulse generator and RA lead are both untested for MR safety. Consequently, this combination of parts has NOT been tested for MR safety or FDA approved for MR scanning. [facility] [employer] Rv Lead (2087tc/58)-09/02/2016 Implanted:02/2017 by Samir Cao MD (Quantity not on file) Lead Chest [facility] [employer] [id number]/5 8 / [id number] / Description:This CIED system is NOT MRI Conditional, since the pulse generator and RA lead are both untested for MR safety. Consequently, this combination of parts has NOT been tested for MR safety or FDA approved for MR scanning. [employer] Sn60wf.220 Acrysof Iq Natural Stableforce Acrysert 6mm 13mm 1 Piece Foldable - [id number] - [id number] Implanted:Qty: 1 on 10/03/2020 by Allyson Flood MD PhD at [facility] Lens Right: Eye [employer] [id number] 05/05/2025 SN60WF.2 20 [id number] / 0 [facility] [employer] Pacemaker (2240)- 7 Implanted:03/0 02/2017 by Samir Cao MD (Quantity not on file) Pacemaker Left: Chest [facility] [employer] 2240 / [id number] / Description:This CIED system is NOT MRI Conditional, since the pulse generator and RA lead are both untested for MR safety. Consequently, this combination of parts has NOT been tested for MR safety or FDA approved for MR scanning. [employer] Sn60wf.225 Acrysof Iq Natural Stableforce Acrysert 6mm 13mm 1 Piece Foldable - [id number] - [id number] Implanted:Qty: 1 on 06/06/2020 by Allyson Flood MD PhD at [facility] Left: Eye [employer] [id number] 10/13/2024 SN60WF.2 [id number] / Procedures Procedure Name Priority Date/Time Associated Diagnosis Comments EGFR STAT 03/30/2025 12:16 PM CDT DIFFERENTIAL AUTO STAT 03/30/2025 12: 16 PM CDT CBC WITH AUTO DIFFERENTIAL STAT 03/30/2025 12:16 PM CDT BASIC METABOLIC PANEL STAT 03/30/2025 12:16 PM CDT POCT GLUCOSE DEVICE Routine 03/30/2025 1 1:46 AM CDT POCT GLUCOSE DEVICE Routine 03/30/2025 7 :38 AM CDT POCT GLUCOSE DEVICE Routine 03/29/2025 9 :21 PM CDT POCT GLUCOSE DEVICE Routine 03/29/2025 4 :06 PM CDT POCT GLUCOSE DEVICE Routine 03/29/2025 1 1:45 AM CDT POCT GLUCOSE DEVICE Routine 03/29/2025 7 :41 AM CDT POCT GLUCOSE DEVICE Routine 03/29/2025 6 :41 AM CDT XR CHEST 1 VIEW Timed 03/29/2025 5:10 AM CDT EGFR Routine 03/29/2025 2:50 AM CDT DIFFERENTIAL AUTO Routine 03/29/2025 2:5 0 AM CDT COMPREHENSIVE METABOLIC PANEL Routine 03/29/2025 2:50 AM CDT CBC WITH AUTO DIFFERENTIAL Routine 03/29/2025 2:50 AM CDT POCT GLUCOSE DEVICE Routine 03/28/2025 7 :49 PM CDT POCT GLUCOSE DEVICE Routine 03/28/2025 3 :55 PM CDT POCT GLUCOSE DEVICE Routine 03/28/2025 1 1:22 AM CDT POCT GLUCOSE DEVICE Routine 03/28/2025 8 :39 AM CDT EGFR Routine 03/28/2025 2:51 AM CDT DIFFERENTIAL AUTO Routine 03/28/2025 2:5 1 AM CDT COMPREHENSIVE METABOLIC PANEL Routine 03/28/2025 2:51 AM CDT CBC WITH AUTO DIFFERENTIAL Routine 03/28/2025 2:51 AM CDT LIPID PANEL Routine 03/28/2025 2:51 AM CDT POCT GLUCOSE DEVICE Routine 03/27/2025 8 :07 PM CDT POCT GLUCOSE DEVICE Routine 03/27/2025 4 :05 PM CDT POCT GLUCOSE DEVICE Routine 03/27/2025 1 2:02 PM CDT TRANSTHORACIC ECHO (TTE) COMPLETE W DOPPLER/CF WO CONTRAST Routine 03/27/2025 8:50 AM CDT POCT GLUCOSE DEVICE Routine 03/27/2025 8 :37 AM CDT HEMOGLOBIN A1C Routine 03/27/2025 3:03 AM CDT EGFR Routine 03/27/2025 3:03 AM CDT DIFFERENTIAL AUTO Routine 03/27/2025 3:0 3 AM CDT CBC WITH AUTO DIFFERENTIAL Routine 03/27/2025 3:03 AM CDT MAGNESIUM Routine 03/27/2025 3:03 AM CDT BASIC METABOLIC PANEL Routine 03/27/2025 3:03 AM CDT IRON PROFILE W/ IBC Routine 03/27/2025 3 :03 AM CDT POCT GLUCOSE DEVICE Routine 03/26/2025 8 :[address] CHEST PE W CONTRAST ED 8:11 PM CDT D-DIMER, QUANTITATIVE STAT 03/26/2025 6:01 PM CDT TROPONIN T HIGH-SENSITIVITY 4-HR Timed 03/26/2025 5:56 PM CDT TROPONIN T HIGH-SENSITIVITY 2-HOUR Timed 03/26/2025 3:28 PM CDT XR CHEST 1 VIEW ED 03/26/2025 2:17 PM CDT EGFR STAT 03/26/2025 1:26 PM CDT DIFFERENTIAL AUTO STAT 03/26/2025 1:2 6 PM CDT PRO B-TYPE NATRIURETIC PEPTIDE STAT 03/26/2025 1:26 PM CDT TROPONIN T HIGH-SENSITIVITY SERIES (BASELINE, 2HR, 4HR, 6HR) STAT 03/26/2025 1:26 PM CDT CBC WITH AUTO DIFFERENTIAL STAT 03/26/2025 1:26 PM CDT COMPREHENSIVE METABOLIC PANEL STAT 03/26/2025 1:26 PM CDT ECG 12-LEAD STAT 03/26/2025 1:25 PM CDT JAMES VISUAL FIELD - OU - BOTH EYES Routine 03/22/2025 10:55 AM CDT Primary open angle glaucoma (POAG) of both eyes, mild stage THYROID FUNCTION CASCADE Routine 02/14/2025 11:25 AM CDT CHB (complete heart block) At risk for amiodarone toxicity with fci use PVC (premature ventricular contraction) CARDIOLOGY DOCUMENT SCAN 02/13/2025 2:47 PM CDT ECG 12-LEAD Routine 02/12/2025 12:33 PM CDT CHB (complete heart block) DEVICE CHECK - IN OFFICE Routine 02/12/2025 11:24 AM CDT CHB (complete heart block) Fitting or adjustment of cardiac pacemaker SLEEP LAB/STUDY - RESULT 01/29/2025 4:58 PM CDT DEVICE CHECK - REMOTE Routine 01/25/2025 7:22 AM CDT PSA DIAGNOSTIC Routine 12/07/2024 2:05 PM CDT Prostate CA (HCC) from Last 3 Months or Most Recently Relevant to Health Maintenance Results * (ABNORMAL) eGFR (03/30/2025 12:16 PM CDT) eGFR 34(L) >=60 mL/min/1. 73 m2 Comment: Interpretive Data Reference Interval Normal >/= 90 mL/min/1.73m2 Mildly decreased* 60 - 89 mL/min/1.73m2 Mildly to moderately decreased 45 - 59 mL/min/1.73m2 Moderately to severely decreased 30 - 44 mL/min/1.73m2 Severely decreased 15 - 29 mL/min/1.73m2 Kidney Failure < 15 mL/min/1.73m2 *Relative to young adult level Estimated glomerular filtration rate is determined by the 2020 CKD-EPI equation recommended by the National Kidney Foundation (A Unifying Approach to GFR Estimation: Recommendations of the NKF-ASK Task Force on Reassessing the Inclusion of Race in Diagnosing Kidney Disease, JASN 202). The CKD-EPI equation should not be used for patients with unstable renal function and has not been validated in children and those over 70. Current interpretive data was last reviewed 2021. Blood 03/30/2025 12:1 6 PM CDT 03/30/2025 12:18 PM CDT Masood Vela MD LAB BLOOD ORDLucía YOUNG Final Result [facility] [address] [facility] [address] [place] [address] * (ABNORMAL) Differential, auto (03/30/2025 12:16 PM CDT) Pathologist [facility] Neutrophil abs 1.98 1.50 - 6.50 K/cumm Imm gran abs 0.00 0.00 - 0.10 K/cumm [facility] Lymphocyte abs 0.56(L) 0.80 - 3.30 K/cumm [facility] Monocyte abs 0.47 0.20 - 0.80 K/cumm [facility] Eosinophil abs 0.16 0.00 - 0.50 K/cumm [facility] Basophil abs 0.04 0.00 - 0.10 K/cumm [facility] Neutrophil pct 61.8 % [facility] Comment: Interpretive Data Percent cell count reference ranges are not reported, since discordance with absolute values may lead to misinterpretation of CBC data. Current Interpretive Data was last revised on 2017. Imm gran pct 0.0 % [facility] Comment: Interpretive Data Percent cell count reference ranges are not reported, since discordance with absolute values may lead to misinterpretation of CBC data. Current Interpretive Data was last revised on 2017. Lymphocyte pct 17.4 % [facility] Comment: Interpretive Data Percent cell count reference ranges are not reported, since discordance with absolute values may lead to misinterpretation of CBC data. Current Interpretive Data was last revised on 2017. Monocyte pct 14.6 % [facility] Comment: Interpretive Data Percent cell count reference ranges are not reported, since discordance with absolute values may lead to misinterpretation of CBC data. Current Interpretive Data was last revised on 2017. Eosinophil pct 5.0 % [facility] Comment: Interpretive Data Percent cell count reference ranges are not reported, since discordance with absolute values may lead to misinterpretation of CBC data. Current Interpretive Data was last revised on 2017. Basophil pct 1.2 % [facility] Comment: Interpretive Data Percent cell count reference ranges are not reported, since discordance with absolute values may lead to misinterpretation of CBC data. Current Interpretive Data was last revised on 2017. Blood 03/30/2025 12:1 6 PM CDT 03/30/2025 12:18 PM CDT us Masood Vela MD LAB BLOOD ORDE HANNAH Final Result [facility] [address] Department [place] [address] * (ABNORMAL) CBC with auto differential (03/30/2025 12:16 PM CDT) WBC 3.21(L) 3.80 - 9.90 K/cumm Hgb 12.4(L) 13.0 - 17.5 g/dL [facility] Hct 40.8 38.9 - 50.3 % [facility] Plt 182 150 - 400 K/cumm [facility] MPV 9.3 9.1 - 12.3 fL [facility] RBC 4.55 4.30 - 5.80 M/cumm [facility] MCV 89.7 81.3 - 96.4 fL [facility] MCH 27.3 27.1 - 33.3 pg [facility] MCHC 30.4(L) 32.3 - 35.7 g/dL [facility] RDW CV 14.5 11.1 - 14.9 % [facility] RDW SD 47.3 35.7 - 48.1 fL [facility] NRBC abs 0.00 0.00 - 0.01 K/cumm [facility] Blood 03/30/2025 12:1 6 PM CDT 03/30/2025 12:18 PM CDT us Masood Vela MD LAB BLOOD WHITNEY YOUNG Final Result [facility] [address] Department [place] [address] * (ABNORMAL) Basic metabolic panel (03/30/2025 12:16 PM CDT) Sodium 141 135 - 145 mmol/L Potassium, pl 4.2 3.3 - 4.9 mmol/L [facility] Chloride 95(L) 97 - 110 mmol/L [facility] CO2 37(H) 22 - 32 mmol/L [facility] Anion gap 9 2 - 15 mmol/L [facility] BUN 21 6 - 25 mg/dL [facility] Creatinine 2.03(H) 0.80 - 1.30 mg/dL [facility] Glucose 153 70 - 199 mg/dL [facility] Comment: Interpretive Data Fasting glucose >/= 126 mg/dl is diagnostic for diabetes. Fasting is defined as no caloric intake for at least 8 hours. Fasting glucose between 100 mg/dl to 125 mg/dl is diagnostic of prediabetes. In a patient with classic symptoms of hyperglycemia or hyperglycemic crisis, a random glucose >/= 200 mg/dl is diagnostic for diabetes. In the absence of unequivocal hyperglycemia, results should be confirmed by repeat testing. The classification and Diagnosis of Diabetes Diabetes Care 2021; 46: S19-S40. Current interpretive data was last revised 2022. Calcium 11.8(H) 8.5 - 10.3 mg/dL [facility] Blood 03/30/2025 12:1 6 PM CDT 03/30/2025 12:18 PM CDT Masood Vela MD LAB BLOOD ORDE RABLES Final Result Performing Organization Address [facility] Co de Phone Number SHAAN [address] [place] [address] * POCT glucose (03/30/2025 11:46 AM CDT) Glucose, POC 158 70 - 199 mg/dL Blood 03/30/2025 11:4 6 AM CDT 03/30/2025 11:46 AM CDT Masood Vela MD LAB POCT ORDER SHAINA - DEVICE Final Result Performing Organization Address [facility] Co de Phone Number [address] [place] [address] * POCT glucose (03/30/2025 7:38 AM CDT) Glucose, POC 123 70 - 199 mg/dL Blood 03/30/2025 7:38 AM CDT 03/30/2025 7:38 AM CDT us Masood Vela MD LAB POCT ORDER SHAINA - DEVICE Final Result Performing Organization Address [facility] Co de Phone Number [address] [place] [place] [address] * POCT glucose (03/29/2025 9:21 PM CDT) Glucose, POC 143 70 - 199 mg/dL Glucose comment 1 RN/MD Notified [facility] Blood 03/29/2025 9:21 PM CDT 03/29/2025 9:21 PM CDT Masood Vela MD LAB POCT ORDER SHAINA - DEVICE Final Result Performing Organization Address City/[facility]/ZIP Co de Phone Number SHAAN [address] [place] [address] * POCT glucose (03/29/2025 4:06 PM CDT) Glucose, POC 129 70 - 199 mg/dL Glucose comment 1 RN/MD Notified [facility] Blood 03/29/2025 4:06 PM CDT 03/29/2025 4:06 PM CDT us Masood Vela MD LAB POCT ORDER SHAINA - DEVICE Final Result Performing Organization Address [facility] Co de Phone Number SHAAN [address] [place] [address] * (ABNORMAL) POCT glucose (03/29/2025 11:45 AM CDT) Glucose, POC 203(H) 70 - 199 mg/dL Glucose comment 1 RN/ Notified [facility] Blood 03/29/2025 11:4 5 AM CDT 03/29/2025 11:45 AM CDT us Masood Vela MD LAB POCT ORDER SHAINA - DEVICE Final Result Performing Organization Address [facility] Co de Phone Number SHAAN [address] [place] [address] * POCT glucose (03/29/2025 7:41 AM CDT) Glucose, POC 111 70 - 199 mg/dL Glucose comment 1 RN/ Notified [facility] Blood 03/29/2025 7:41 AM CDT 03/29/2025 7:41 AM CDT us Masood Vela MD LAB POCT ORDER SHAINA - DEVICE Final Result Performing Organization Address City/[facility]/ZIP Co de Phone Number [facility] [address] [place] [address] * POCT glucose (03/29/2025 6:41 AM CDT) Glucose, POC 124 70 - 199 mg/dL Blood 03/29/2025 6:41 AM CDT 03/29/2025 6:41 AM CDT Masood Vela MD LAB POCT ORDER SHAINA - DEVICE Final Result [facility] [facility] Department [place] [address] * XR Chest 1 View (03/29/2025 5:10 AM CDT) Anatomical Region Laterality Modality Body, Chest N/A Computed Radiogr aphy 03/29/2025 5:17 AM CDT Narrative 03/29/2025 5:19 AM CDT EXAM DESCRIPTION: XR CHEST 1 VIEW REASON FOR STUDY: CHF WITH LOW EJECTION FRACTION, Follow-up of pulmonary vascular congestion F/U for Chf with low ejection fraction; Follow-up of pulmonary vascular congestion To ER on MAR 21 for presenting to the ED c/o increasing shortness of breath for weeks and not being able to lay flat. Patient states that he has been having to use his CPAP during the day to help him be able to breathe easier. Patient states that his legs have been swollen, patient has 3+ to 4+ pitting edema in his lower extremities and into his abdomen which is tight and patient states is abnormal for him. Patient states that he has been taking his Bumex daily as prescribed. Patient denies any chest pain, nausea, vomiting, diarrhea, urinary symptoms. TECHNIQUE: AP portable upright radiographic view(s) of the chest. COMPARISON: 03/26/2025 and 11/18/2021 FINDINGS: LUNGS: Interstitial prominence appears slightly improved from prior examination. There is no large effusion. No definitive consolidation. No pneumothorax. HEART/MEDIASTINUM: Cardiac silhouette is stable in size. Pulmonary vascularity is mildly enlarged. TAVR. LINES/TUBES: Left-sided pacemaker, stable. BONES: Degenerative changes. Other: Air-filled loops of bowel within the upper abdomen again demonstrated, stable. IMPRESSION: Interval improvement in pulmonary vascular congestion. THIS IS AN ELECTRONICALLY VERIFIED FINAL REPORT 03/29/2025 5:19 AM - Electronically signed by May Knapp M.D. TW T: Report ID: [id number] Reading Location: [id number] Procedure Note May Knapp MD - 03/29/2025 EXAM DESCRIPTION: XR CHEST 1 VIEW REASON FOR STUDY: CHF WITH LOW EJECTION FRACTION, Follow-up of pulmonary vascular congestion F/U for Chf with low ejection fraction; Follow-up of pulmonary vascular congestion To ER on MAR 21 for presenting to the ED c/o increasing shortness of breath for weeks and not being able to lay flat. Patientstates that he has been having to use his CPAP during the day to help him be ableto breathe easier. Patient states that his legs have been swollen, patienthas 3+ to 4+ pitting edema in his lower extremities and into his abdomen whichis tight and patient states is abnormal for him. Patient states that he hasbeen taking his Bumex daily as prescribed. Patient denies any chest pain,nausea, vomiting, diarrhea, urinary symptoms. TECHNIQUE: AP portable upright radiographic view(s) of the chest. COMPARISON: 03/26/2025 and 11/18/2021 FINDINGS: LUNGS: Interstitial prominence appears slightly improved fromprior examination. There is no large effusion. No definitive consolidation.No pneumothorax. HEART/MEDIASTINUM: Cardiac silhouette is stable in size. Pulmonary vascularity is mildly enlarged. TAVR. LINES/TUBES: Left-sided pacemaker, stable. BONES: Degenerative changes. Other: Air-filled loops of bowel within the upper abdomen againdemonstrated, stable. IMPRESSION: Interval improvement in pulmonary vascular congestion. THIS IS AN ELECTRONICALLY VERIFIED FINAL REPORT 03/29/2025 5:19 AM - Electronically signed by May Knapp M.D. TW T: Report ID: [id number] Reading Location: [id number] us Constantino Jones MD IMG XR PROCEDURES Final Result * (ABNORMAL) eGFR (03/29/2025 2:50 AM CDT) Pathologist [facility] eGFR 38(L) >=60 mL/min/1. 73 m2 Comment: Interpretive Data Reference Interval Normal >/= 90 mL/min/1.73m2 Mildly decreased* 60 - 89 mL/min/1.73m2 Mildly to moderately decreased 45 - 59 mL/min/1.73m2 Moderately to severely decreased 30 - 44 mL/min/1.73m2 Severely decreased 15 - 29 mL/min/1.73m2 Kidney Failure < 15 mL/min/1.73m2 *Relative to young adult level Estimated glomerular filtration rate is determined by the 2020 CKD-EPI equation recommended by the National Kidney Foundation (A Unifying Approach to GFR Estimation: Recommendations of the NKF-ASK Task Force on Reassessing the Inclusion of Race in Diagnosing Kidney Disease, JASN 2020). The CKD-EPI equation should not be used for patients with unstable renal function and has not been validated in children and those over 70. Current interpretive data was last reviewed 2021. Blood 03/29/2025 2:50 AM CDT 03/29/2025 3:04 AM CDT Constantino Jones MD LAB BLOOD ORDERABLES Fin al Result [facility] [address] Department [place] [address] * (ABNORMAL) Differential, auto (03/29/2025 2:50 AM CDT) Pathologist [facility] Neutrophil abs 1.49(L) 1.50 - 6.50 K/cumm Imm gran abs 0.01 0.00 - 0.10 K/cumm [facility] Lymphocyte abs 0.63(L) 0.80 - 3.30 K/cumm [facility] Monocyte abs 0.74 0.20 - 0.80 K/cumm [facility] Eosinophil abs 0.19 0.00 - 0.50 K/cumm [facility] Basophil abs 0.02 0.00 - 0.10 K/cumm [facility] Neutrophil pct 48.4 % [facility] Comment: Interpretive Data Percent cell count reference ranges are not reported, since discordance with absolute values may lead to misinterpretation of CBC data. Current Interpretive Data was last revised on 2017. Imm gran pct 0.3 % [facility] Comment: Interpretive Data Percent cell count reference ranges are not reported, since discordance with absolute values may lead to misinterpretation of CBC data. Current Interpretive Data was last revised on 2017. Lymphocyte pct 20.5 % [facility] Comment: Interpretive Data Percent cell count reference ranges are not reported, since discordance with absolute values may lead to misinterpretation of CBC data. Current Interpretive Data was last revised on 2017. Monocyte pct 24.0 % [facility] Comment: Interpretive Data Percent cell count reference ranges are not reported, since discordance with absolute values may lead to misinterpretation of CBC data. Current Interpretive Data was last revised on 2017. Eosinophil pct 6.2 % [facility] Comment: Interpretive Data Percent cell count reference ranges are not reported, since discordance with absolute values may lead to misinterpretation of CBC data. Current Interpretive Data was last revised on 2017. Basophil pct 0.6 % [facility] Comment: Interpretive Data Percent cell count reference ranges are not reported, since discordance with absolute values may lead to misinterpretation of CBC data. Current Interpretive Data was last revised on 2017. Blood 03/29/2025 2:50 AM CDT 03/29/2025 3:05 AM CDT Constantino Jones MD LAB BLOOD ORDERABLES Fin al Result [facility] [address] [place] [address] * (ABNORMAL) CBC with auto differential (03/29/2025 2:50 AM CDT) WBC 3.08(L) 3.80 - 9.90 K/cumm Hgb 12.2(L) 13.0 - 17.5 g/dL [facility] Hct 39.6 38.9 - 50.3 % [facility] Plt 162 150 - 400 K/cumm [facility] MPV 9.6 9.1 - 12.3 fL [facility] RBC 4.51 4.30 - 5.80 M/cumm [facility] MCV 87.8 81.3 - 96.4 fL [facility] MCH 27.1 27.1 - 33.3 pg [facility] MCHC 30.8(L) 32.3 - 35.7 g/dL [facility] RDW CV 14.4 11.1 - 14.9 % [facility] RDW SD 46.5 35.7 - 48.1 fL [facility] NRBC abs 0.00 0.00 - 0.01 K/cumm [facility] Blood 03/29/2025 2:50 AM CDT 03/29/2025 3:05 AM CDT Constantino Jones MD LAB BLOOD ORDERABLES Fin al Result Performing Organization Address City/State/[facility] Co de Phone Number [place] [id number] [facility] Department [place] [address] * (ABNORMAL) Comprehensive metabolic panel (03/29/2025 2:50 AM CDT) Sodium 144 135 - 145 mmol/L Potassium, pl 4.0 3.3 - 4.9 mmol/L [facility] Chloride 96(L) 97 - 110 mmol/L [facility] CO2 38(H) 22 - 32 mmol/L [facility] Anion gap 10 2 - 15 mmol/L [facility] BUN 13 6 - 25 mg/dL [facility] Creatinine 1.86(H) 0.80 - 1.30 mg/dL [facility] Glucose 112 70 - 199 mg/dL [facility] Comment: Interpretive Data Fasting glucose >/= 126 mg/dl is diagnostic for diabetes. Fasting is defined as no caloric intake for at least 8 hours. Fasting glucose between 100 mg/dl to 125 mg/dl is diagnostic of prediabetes. In a patient with classic symptoms of hyperglycemia or hyperglycemic crisis, a random glucose >/= 200 mg/dl is diagnostic for diabetes. In the absence of unequivocal hyperglycemia, results should be confirmed by repeat testing. The classification and Diagnosis of Diabetes Diabetes Care 2021; 46: S19-S40. Current interpretive data was last revised 2022. Calcium 11.0(H) 8.5 - 10.3 mg/dL [facility] Bilirubin, total 0.6 0.1 - 1.2 mg/dL [facility] Protein, pl 7.2 6.5 - 8.5 g/dL [facility] Albumin 3.9 3.5 - 5.0 g/dL [facility] Alk phos 69 40 - 130 Units/L [facility] ALT 17 7 - 55 Units/L [facility] AST 27 10 - 50 Units/L [facility] Blood 03/29/2025 2:50 AM CDT 03/29/2025 3:04 AM CDT Constantino Jones MD LAB BLOOD ORDERABLES Fin al Result Performing Organization Address [facility] Co de Phone Number [address] [place] [address] * POCT glucose (03/28/2025 7:49 PM CDT) Glucose, POC 135 70 - 199 mg/dL Blood 03/28/2025 7:49 PM CDT 03/28/2025 7:49 PM CDT Constantino Jones MD LAB POCT ORDERABLES - DE VICE Final Result Performing Organization Address [facility] Co de Phone Number [address] [place] [address] * POCT glucose (03/28/2025 3:55 PM CDT) Glucose, POC 120 70 - 199 mg/dL Blood 03/28/2025 3:55 PM CDT 03/28/2025 3:55 PM CDT Constantino Jones MD LAB POCT ORDERABLES - DE VICE Final Result Performing Organization Address [facility] Co de Phone Number [address] [place] [address] * POCT glucose (03/28/2025 11:22 AM CDT) Glucose, POC 191 70 - 199 mg/dL Blood 03/28/2025 11:2 2 AM CDT 03/28/2025 11:22 AM CDT Constantino Jones MD LAB POCT ORDERABLES - DE VICE Final Result [address] [email or web address] [address] * (ABNORMAL) POCT glucose (03/28/2025 8:39 AM CDT) Glucose, POC 234(H) 70 - 199 mg/dL Blood 03/28/2025 8:39 AM CDT 03/28/2025 8:39 AM CDT Constantino Jones MD LAB POCT ORDERABLES - DE VICE Final Result Performing Organization Address [facility] Co de Phone Number [address] [address] * (ABNORMAL) eGFR (03/28/2025 2:51 AM CDT) eGFR 41(L) >=60 mL/min/1. 73 m2 Comment: Interpretive Data Reference Interval Normal >/= 90 mL/min/1.73m2 Mildly decreased* 60 - 89 mL/min/1.73m2 Mildly to moderately decreased 45 - 59 mL/min/1.73m2 Moderately to severely decreased 30 - 44 mL/min/1.73m2 Severely decreased 15 - 29 mL/min/1.73m2 Kidney Failure < 15 mL/min/1.73m2 *Relative to young adult level Estimated glomerular filtration rate is determined by the 2020 CKD-EPI equation recommended by the National Kidney Foundation (A Unifying Approach to GFR Estimation: Recommendations of the NKF-ASK Task Force on Reassessing the Inclusion of Race in Diagnosing Kidney Disease, JASN 2020). The CKD-EPI equation should not be used for patients with unstable renal function and has not been validated in children and those over 70. Current interpretive data was last reviewed 2021. Blood 03/28/2025 2:51 AM CDT 03/28/2025 3:45 AM CDT us Constantino Jones MD LAB BLOOD ORDERABLES Fin al Result [facility] [address] [facility] [place] [address] * (ABNORMAL) Differential, auto (03/28/2025 2:51 AM CDT) Neutrophil abs 1.54 1.50 - 6.50 K/cumm Imm gran abs 0.00 0.00 - 0.10 K/cumm [facility] Lymphocyte abs 0.59(L) 0.80 - 3.30 K/cumm [facility] Monocyte abs 0.65 0.20 - 0.80 K/cumm [facility] Eosinophil abs 0.15 0.00 - 0.50 K/cumm [facility] Basophil abs 0.02 0.00 - 0.10 K/cumm [facility] Neutrophil pct 52.2 % [facility] Comment: Interpretive Data Percent cell count reference ranges are not reported, since discordance with absolute values may lead to misinterpretation of CBC data. Current Interpretive Data was last revised on 2017. Imm gran pct 0.0 % [facility] Comment: Interpretive Data Percent cell count reference ranges are not reported, since discordance with absolute values may lead to misinterpretation of CBC data. Current Interpretive Data was last revised on 2017. Lymphocyte pct 20.0 % [facility] Comment: Interpretive Data Percent cell count reference ranges are not reported, since discordance with absolute values may lead to misinterpretation of CBC data. Current Interpretive Data was last revised on 2017. Monocyte pct 22.0 % [facility] Comment: Interpretive Data Percent cell count reference ranges are not reported, since discordance with absolute values may lead to misinterpretation of CBC data. Current Interpretive Data was last revised on 2017. Eosinophil pct 5.1 % [facility] Comment: Interpretive Data Percent cell count reference ranges are not reported, since discordance with absolute values may lead to misinterpretation of CBC data. Current Interpretive Data was last revised on 2017. Basophil pct 0.7 % [facility] Comment: Interpretive Data Percent cell count reference ranges are not reported, since discordance with absolute values may lead to misinterpretation of CBC data. Current Interpretive Data was last revised on 2017. Blood 03/28/2025 2:51 AM CDT 03/28/2025 3:51 AM CDT Constantino Jones MD LAB BLOOD ORDERABLES Fin al Result [place] [id number] [facility] Department of Laboratories [place], [place] [id number] * (ABNORMAL) CBC with auto differential (03/28/2025 2:51 AM CDT) WBC 2.95(L) 3.80 - 9.90 K/cumm Hgb 11.2(L) 13.0 - 17.5 g/dL [facility] Hct 36.0(L) 38.9 - 50.3 % [facility] Plt 155 150 - 400 K/cumm [facility] MPV 10.2 9.1 - 12.3 fL [facility] RBC 4.08(L) 4.30 - 5.80 M/cumm [facility] MCV 88.2 81.3 - 96.4 fL [facility] MCH 27.5 27.1 - 33.3 pg [facility] MCHC 31.1(L) 32.3 - 35.7 g/dL [facility] RDW CV 14.5 11.1 - 14.9 % [facility] RDW SD 46.9 35.7 - 48.1 fL [facility] NRBC abs 0.00 0.00 - 0.01 K/cumm [facility] Blood 03/28/2025 2:51 AM CDT 03/28/2025 3:51 AM CDT us Constantino Jones MD LAB BLOOD ORDERABLES Fin al Result [facility] [address] [facility] [place] [address] * Lipid panel (03/28/2025 2:51 AM CDT) Cholesterol 167 30 - 199 mg/dL Comment: Interpretive Data Ages < or = 19 years Acceptable: <170 mg/dL Borderline high: 170-199 mg/dL High: >or= 200 mg/dL Ages > or = 20 years Desirable: <200 mg/dL Borderline high: 200-239 mg/dL High: >or= 240 mg/dL Literature References: 1. Expert Panel on Integrated Guidelines for Cardiovascular Health and Risk Reduction in Children and Adolescents. Pediatrics 2011;128:S213 2. NCEP Expert Panel. Circulation 2004;110:227 Current Interpretive Data was last revised on 2018. Triglycerides 71 <=149 mg/dL [facility] Comment: Interpretive Data Ages < or = 9 years Acceptable: <75 mg/dL Borderline high: 75-99 mg/dL High: >or= 100 mg/dL Ages 10 to 20 years Acceptable: <90 mg/dL Borderline high: 90-129 mg/dL High: >or= 130 mg/dL Ages > or = 20 years Desirable: <150 mg/dL Borderline high: 150-199 mg/dL High: 200-499 mg/dL Very high: >or= 499 mg/dL Literature References: 1. Expert Panel on Integrated Guidelines for Cardiovascular Health and Risk Reduction in Children and Adolescents. Pediatrics 2011;128:S213 2. NCEP Expert Panel. Circulation 2004;110:227 Current Interpretive Data was last revised on 2018. HDL 72 >=40 mg/dL [facility] Comment: Interpretive Data Ages < or = 19 years Acceptable: >45 mg/dL Borderline low: 40-45 mg/dL Low: <40 mg/dL Ages > or = 20 years Desirable: >or= 60 mg/dL Low: <40 mg/dL Literature References: 1. Expert Panel on Integrated Guidelines for Cardiovascular Health and Risk Reduction in Children and Adolescents. Pediatrics 2011;128:S213 2. NCEP Expert Panel. Circulation 2004;110:227 Current Interpretive Data was last revised on 2018. LDL, calculated 81 <=129 mg/dL [facility] Comment: Interpretive Data Ages < or = 19 years Acceptable: <110 mg/dL Borderline high: 110-129 mg/dL High: >or= 130 mg/dL Ages > or = 20 years Optimal: <100 mg/dL Near optimal: 100-129 mg/dL Borderline high: 130-159 mg/dL High: >160 mg/dL Calculated using the Mohan LDL-C estimating equation. This equation was implemented on 2024. Prior to this date LDL-C was estimated using the Friedewald equation. Literature References: 1. Expert Panel on Integrated Guidelines for Cardiovascular Health and Risk Reduction in Children and Adolescents. Pediatrics 2011;128:S213 2. NCEP Expert Panel. Circulation 2004;110:227 3. Mohan Mary et al. SHAVON Cardiol. 2020 October 25;5(5):540-548. doi: 10.1001/[email or web address] Current Interpretive Data was last revised on 2024. Non-HDL Cholesterol 95 mg/dL [facility] Comment: Interpretive Data Ages < or = 19 years Acceptable: <120 mg/dL Borderline high: 120-144 mg/dL High: >145 mg/dL Ages > or = 20 years When triglycerides are >200 mg/dL, Non-HDL cholesterol is a secondary target of therapy with treatment goals that are 30 mg/dL greater than the LDL cholesterol target. Literature References: 1. Expert Panel on Integrated Guidelines for Cardiovascular Health and Risk Reduction in Children and Adolescents. Pediatrics 2011;128:S213 2. NCEP Expert Panel. Circulation 2004;110:227 Current Interpretive Data was last revised on 2018. Chol/HDL ratio 2 [facility] Blood 03/28/2025 2:51 AM CDT 03/28/2025 3:45 AM CDT us Constantino Jones MD LAB BLOOD ORDERABLES Fin al Result [facility] [address] [facility] Department [place] [address] * (ABNORMAL) Comprehensive metabolic panel (03/28/2025 2:51 AM CDT) Pathologist [facility] Sodium 145 135 - 145 mmol/L Potassium, pl 4.0 3.3 - 4.9 mmol/L [facility] Chloride 99 97 - 110 mmol/L [facility] CO2 35(H) 22 - 32 mmol/L [facility] Anion gap 11 2 - 15 mmol/L [facility] BUN 14 6 - 25 mg/dL [facility] Creatinine 1.76(H) 0.80 - 1.30 mg/dL [facility] Glucose 107 70 - 199 mg/dL [facility] Comment: Interpretive Data Fasting glucose >/= 126 mg/dl is diagnostic for diabetes. Fasting is defined as no caloric intake for at least 8 hours. Fasting glucose between 100 mg/dl to 125 mg/dl is diagnostic of prediabetes. In a patient with classic symptoms of hyperglycemia or hyperglycemic crisis, a random glucose >/= 200 mg/dl is diagnostic for diabetes. In the absence of unequivocal hyperglycemia, results should be confirmed by repeat testing. The classification and Diagnosis of Diabetes Diabetes Care 2021; 46: S19-S40. Current interpretive data was last revised 2022. Calcium 10.3 8.5 - 10.3 mg/dL [facility] Bilirubin, total 0.7 0.1 - 1.2 mg/dL [facility] Protein, pl 6.8 6.5 - 8.5 g/dL [facility] Albumin 3.7 3.5 - 5.0 g/dL [facility] Alk phos 66 40 - 130 Units/L [facility] ALT 15 7 - 55 Units/L [facility] AST 24 10 - 50 Units/L [facility] Blood 03/28/2025 2:51 AM CDT 03/28/2025 3:45 AM CDT Constantino Jones MD LAB BLOOD ORDERABLES Fin al Result [facility] [address] [facility] Department [place] [address] * POCT glucose (03/27/2025 8:07 PM CDT) [facility] Glucose, POC 149 70 - 199 mg/dL Glucose comment 1 RN/MD Notified [facility] Glucose comment 2 Follow Protocol [facility] Blood 03/27/2025 8:07 PM CDT 03/27/2025 8:07 PM CDT Constantino Jones MD LAB POCT ORDERABLES - DE VICE Final Result Performing Organization Address [facility] Co de Phone Number [address] [place] [email or web address] [address] * POCT glucose (03/27/2025 4:05 PM CDT) [facility] Glucose, POC 151 70 - 199 mg/dL Blood 03/27/2025 4:05 PM CDT 03/27/2025 4:05 PM CDT Constantino Jones MD LAB POCT ORDERABLES - DE VICE Final Result Performing Organization Address [facility] Co de Phone Number [address] [email or web address] [address] * (ABNORMAL) POCT glucose (03/27/2025 12:02 PM CDT) [facility] Glucose, POC 200(H) 70 - 199 mg/dL Blood 03/27/2025 12:0 2 PM CDT 03/27/2025 12:02 PM CDT Constantino Jones MD LAB POCT ORDERABLES - DE VICE Final Result Performing Organization Address [facility] Co de Phone Number [address] [email or web address] [address] * TRANSTHORACIC ECHO (TTE) COMPLETE W DOPPLER/CF WO CONTRAST (03/27/2025 8:50 AM CDT) [facility] Estimated EF 25-30 % CONS SCIMAGE EF Mod BP 35 % CONS SCIMAGE Anatomical Region Laterality Modality Ultrasound 03/27/2025 8:06 AM CDT Narrative 03/27/2025 9:29 AM CDT Transthoracic Echocardiographic Report Patient Name: AILEEN PRESCOTT : 1950 (74y 5m) Sex: M Study Date: 03/27/2025 08:06:50 AM Ht(Inch): 72 Wt(Lb): 184.99 BSA: 2.06 Rn Relief Charge: Skye Muir RDCS Location: [id number] Order Provider: KELSIE MARINA Heart Rate: 76 BMI: 25.09 BP: 151 / 92 Ref Provider: KELSIE MARINA PROCEDURES: Echocardiographic Report: ([id number]) Transthoracic complete echo, 2D, spectral and tissue Doppler, color flow Doppler, M-mode. INDICATIONS: Congestive heart failure. FINDINGS: Left Ventricle: Mildly dilated left ventricle cavity. Concentric LV remodeling. Severely depressed left ventricular systolic function. The Ejection Fraction is visually estimated to be 25-30 %. Regional Wall Motion: There is severe hypokinesis in the basal, mid and apical anterior, anteroseptal and inferoseptal knpap. Right Ventricle: Normal right ventricular size. Normal right ventricular systolic function. Wire noted in the right heart. Left Atrium: Mildly dilated left atrium. Right Atrium: The right atrium is normal in size. Atrial Septum: No shunt by color Doppler. Mitral Valve: Normal mitral valve leaflet structure. There is mild mitral valve regurgitation. No mitral valve stenosis. Aortic Valve: Trileaflet aortic valve. No aortic regurgitation seen. No aortic valve stenosis. The mean transaortic gradient is 9 mmHg. Tricuspid Valve: The tricuspid valve demonstrates normal leaflet structure. There is mild to moderate tricuspid regurgitation. The estimated right ventricular systolic pressure is 78 mmHg. Normal estimated pulmonary artery systolic pressure. No tricuspid valve stenosis. Pulmonic Valve: Pulmonic Valve not well visualized due to poor echo windows. Pericardium: Normal pericardium without evidence of pericardial effusion. No pericardial effusion noted. Aorta: Normal aortic root. The aortic Sinus is normal in size. IVC: IVC is dilated. The estimated RA pressure is 15 mmHg. CONCLUSIONS: 1. Mildly dilated left ventricle cavity. Concentric LV remodeling. Severely depressed left ventricular systolic function. The Ejection Fraction is visually estimated to be 25-30 %. There is severe hypokinesis in the basal, mid and apical anterior, anteroseptal and inferoseptal knapp. 2. Normal right ventricular size and systolic function. Wire noted in the right heart. 3. Mildly dilated left atrium. 4. Normal mitral valve leaflet structure. There is mild mitral valve regurgitation. No mitral valve stenosis. 5. Trileaflet aortic valve. No aortic regurgitation seen. No aortic valve stenosis. The mean transaortic gradient is 9 mmHg. 6. The tricuspid valve demonstrates normal leaflet structure. There is mild to moderate tricuspid regurgitation. The estimated right ventricular systolic pressure is 78 mmHg. Normal estimated pulmonary artery systolic pressure. No tricuspid valve stenosis. 7. No pericardial effusion noted. 8. IVC is dilated. The estimated RA pressure is 15 mmHg. MEASUREMENTS: 2D/MM Value Range Doppler Value LVIDd 2D 5.93 cm [ 3.50 - 5.70 ] AV Peak Ignacio 1.95 m/s LVIDs 2D 4.79 cm [ 3.10 - 4.60 ] AV Peak PG 15.21 mmHg IVSd 2D 1.22 cm [ 0.60 - 1.20 ] AV Mean PG 9.00 mmHg LVPWd 2D 1.23 cm [ 0.60 - 1.10 ] AV VTI 39.20 cm LV Thickness Ratio 0.99 LVOT Peak Ignacio 0.89 m/s LV Mass 2D 323.39 g LVOT Peak PG 3.17 mmHg LV Mass Index 2D 156.63 g/m2 LVOT Mean PG 2.00 mmHg RWT 0.41 LVOT VTI 18.70 cm EDV Mod BP 128.00 ml [ 62.00 - 150.00 ] LVOT/AV VTI 0.48 - Dimensionless index (DVI) LV EDV Index 62.00 ml/m2 MV E Peak Ignacio 0.89 m/s ESV Mod BP 83.10 ml [ 21.00 - 61.00 ] MV A Peak Ignacio 0.71 m/s EF Mod BP 35 % [ 52 - 72 ] MV E/A 1.20 ratio Visually Estimated EF 25-30 % MV Decel Time 124.00 msec LA Dimension 2D 4.50 cm [ 1.90 - 4.00 ] Med E` Ignacio 0.05 m/s LA Length 2C 4.60 cm Lat E` Ignacio 0.04 m/s LA Length 4C 4.45 cm Average E/E` 1977.78 LA Volume BP 63.00 ml TV Peak Ignacio 0.62 m/s LA Volume Index 30.51 ml/m2 [ 16.00 - 34.00 ] TV Peak PG 1.54 mmHg TAPSE 2.40 cm [ 1.71 - 5.00 ] RV S` 14.10 cm/sec RA Volume 38.00 ml TR Peak Ignacio 3.96 m/s RA Volume Index 18.41 ml/m2 TR Peak PG 62.7 mmHg IVC Diam 2.34 cm RA Pressure 15.00 mmHg RVSP 77.70 mmHg - ATTESTATION: I have reviewed and interpreted the pertinent images and measurements of this study. I attest to the conclusions in the final report that is provided above. DISCLAIMER: The study images and the final report will be retained in the patient chart by the [facility] for the legally required time period. This chart constitutes the legal record of any testing performed. Electronically Signed By: Della Miller MD 03/27/2025 9:28:57 AM CDT Procedure Note Della Miller MD - 03/27/2025 Transthoracic Echocardiographic Report Patient Name: AIELEN PRESCOTT : 1950 (74y 5m) Sex: M Study Date: 03/27/2025 08:06:50 AM Ht(Inch): 72 Wt(Lb): 184.99 BSA: 2.06 Rn Relief Charge: Skye Muir RDCS Location: [id number] Order Provider:KELSIE MARINA Heart Rate: 76 BMI: 25.09 BP: 151 / 92 Ref Provider: KELSIE MARINA PROCEDURES: Echocardiographic Report: ([id number]) Transthoracic complete echo, 2D,spectral and tissue Doppler, color flow Doppler, M-mode. INDICATIONS: Congestive heart failure. FINDINGS: Left Ventricle: Mildly dilated left ventricle cavity. Concentric LVremodeling. Severely depressed left ventricular systolic function. The Ejection Fraction isvisually estimated to be 25-30 %. Regional Wall Motion: There is severe hypokinesis in the basal, mid andapical anterior, anteroseptal and inferoseptal knapp. Right Ventricle: Normal right ventricular size. Normal right ventricularsystolic function. Wire noted in the right heart. Left Atrium: Mildly dilated left atrium. Right Atrium: The right atrium is normal in size. Atrial Septum: No shunt by color Doppler. Mitral Valve: Normal mitral valve leaflet structure. There is mild mitralvalve regurgitation. No mitral valve stenosis. Aortic Valve: Trileaflet aortic valve. No aortic regurgitation seen. Noaortic valve stenosis. The mean transaortic gradient is 9 mmHg. Tricuspid Valve: The tricuspid valve demonstrates normal leafletstructure. There is mild to moderate tricuspid regurgitation. The estimated right ventricularsystolic pressure is 78 mmHg. Normal estimated pulmonary artery systolic pressure. No tricuspidvalve stenosis. Pulmonic Valve: Pulmonic Valve not well visualized due to poor echowindows. Pericardium: Normal pericardium without evidence of pericardial effusion.No pericardial effusion noted. Aorta: Normal aortic root. The aortic Sinus is normal in size. IVC: IVC is dilated. The estimated RA pressure is 15 mmHg. CONCLUSIONS: 1. Mildly dilated left ventricle cavity. Concentric LV remodeling.Severely depressed left ventricular systolic function. The Ejection Fraction is visuallyestimated to be 25-30 %. There is severe hypokinesis in the basal, mid and apicalanterior, anteroseptal and inferoseptal knapp. 2. Normal right ventricular size and systolic function. Wire noted in theright heart. 3. Mildly dilated left atrium. 4. Normal mitral valve leaflet structure. There is mild mitral valveregurgitation. No mitral valve stenosis. 5. Trileaflet aortic valve. No aortic regurgitation seen. No aortic valvestenosis. The mean transaortic gradient is 9 mmHg. 6. The tricuspid valve demonstrates normal leaflet structure. There ismild to moderate tricuspid regurgitation. The estimated right ventricular systolic pressureis 78 mmHg. Normal estimated pulmonary artery systolic pressure. No tricuspid valvestenosis. 7. No pericardial effusion noted. 8. IVC is dilated. The estimated RA pressure is 15 mmHg. MEASUREMENTS: 2D/MM Value Range DopplerValue LVIDd 2D 5.93 cm [ 3.50 - 5.70 ] AV Peak Vel1.95 m/s LVIDs 2D 4.79 cm [ 3.10 - 4.60 ] AV Peak PG15.21 mmHg IVSd 2D 1.22 cm [ 0.60 - 1.20 ] AV Mean PG9.00 mmHg LVPWd 2D 1.23 cm [ 0.60 - 1.10 ] AV VTI39.20 cm LV Thickness Ratio 0.99 LVOT PeakVel 0.89 m/s LV Mass 2D 323.39 g LVOT Peak PG3.17 mmHg LV Mass Index 2D 156.63 g/m2 LVOT Mean PG2.00 mmHg RWT 0.41 LVOT VTI18.70 cm EDV Mod BP 128.00 ml [ 62.00 - 150.00 ] LVOT/AV VTI0.48 - Dimensionless index (DVI) LV EDV Index 62.00 ml/m2 MV E PeakVel 0.89 m/s ESV Mod BP 83.10 ml [ 21.00 - 61.00 ] MV A PeakVel 0.71 m/s EF Mod BP 35 % [ 52 - 72 ] MV E/A1.20 ratio Visually Estimated EF 25-30 % MV DecelTime 124.00 msec LA Dimension 2D 4.50 cm [ 1.90 - 4.00 ] Med E` Vel0.05 m/s LA Length 2C 4.60 cm Lat E` Vel0.04 m/s LA Length 4C 4.45 cm Average E/E`1977.78 LA Volume BP 63.00 ml TV Peak Vel0.62 m/s LA Volume Index 30.51 ml/m2 [ 16.00 - 34.00 ] TV Peak PG1.54 mmHg TAPSE 2.40 cm [ 1.71 - 5.00 ] RV S`14.10 cm/sec RA Volume 38.00 ml TR Peak Vel3.96 m/s RA Volume Index 18.41 ml/m2 TR Peak PG62.7 mmHg IVC Diam 2.34 cm RA Ofdemysd08.00 mmHg RVSP 77.70 mmHg - ATTESTATION: I have reviewed and interpreted the pertinent images and measurements ofthis study. I attest to the conclusions in the final report that is provided above. DISCLAIMER: The study images and the final report will be retained in the patientchart by the Echo Laboratory for the legally required time period. This chart constitutesthe legal record of any testing performed. Electronically Signed By: Della Miller MD 03/27/2025 9:28:57 AM CDT us Kelsie Marina CONSULTING SERVICES MANAGER CV ECHO PROCEDURES Final Res ult * POCT glucose (03/27/2025 8:37 AM CDT) Glucose, POC 97 70 - 199 mg/dL Blood 03/27/2025 8:37 AM CDT 03/27/2025 8:37 AM CDT us Consatntino Jones MD LAB POCT ORDERABLES - DE VICE Final Result [facility] [address] [facility] [place] [address] * (ABNORMAL) eGFR (03/27/2025 3:03 AM CDT) Pathologist [facility] eGFR 53(L) >=60 mL/min/1. 73 m2 Comment: Interpretive Data Reference Interval Normal >/= 90 mL/min/1.73m2 Mildly decreased* 60 - 89 mL/min/1.73m2 Mildly to moderately decreased 45 - 59 mL/min/1.73m2 Moderately to severely decreased 30 - 44 mL/min/1.73m2 Severely decreased 15 - 29 mL/min/1.73m2 Kidney Failure < 15 mL/min/1.73m2 *Relative to young adult level Estimated glomerular filtration rate is determined by the 2020 CKD-EPI equation recommended by the National Kidney Foundation (A Unifying Approach to GFR Estimation: Recommendations of the NKF-ASK Task Force on Reassessing the Inclusion of Race in Diagnosing Kidney Disease, JASN 202). The CKD-EPI equation should not be used for patients with unstable renal function and has not been validated in children and those over 70. Current interpretive data was last reviewed 2021. Blood 03/27/2025 3:03 AM CDT 03/27/2025 3:37 AM CDT us Kelsie Marina NP LAB BLOOD ORDERABLES Final R esult [facility] [address] [facility] [place] [address] * (ABNORMAL) Differential, auto (03/27/2025 3:03 AM CDT) Neutrophil abs 2.55 1.50 - 6.50 K/cumm Imm gran abs 0.01 0.00 - 0.10 K/cumm [facility] Lymphocyte abs 0.59(L) 0.80 - 3.30 K/cumm [facility] Monocyte abs 0.52 0.20 - 0.80 K/cumm [facility] Eosinophil abs 0.08 0.00 - 0.50 K/cumm [facility] Basophil abs 0.04 0.00 - 0.10 K/cumm [facility] Neutrophil pct 67.2 % [facility] Comment: Interpretive Data Percent cell count reference ranges are not reported, since discordance with absolute values may lead to misinterpretation of CBC data. Current Interpretive Data was last revised on 2017. Imm gran pct 0.3 % [facility] Comment: Interpretive Data Percent cell count reference ranges are not reported, since discordance with absolute values may lead to misinterpretation of CBC data. Current Interpretive Data was last revised on 2017. Lymphocyte pct 15.6 % [facility] Comment: Interpretive Data Percent cell count reference ranges are not reported, since discordance with absolute values may lead to misinterpretation of CBC data. Current Interpretive Data was last revised on 2017. Monocyte pct 13.7 % [facility] Comment: Interpretive Data Percent cell count reference ranges are not reported, since discordance with absolute values may lead to misinterpretation of CBC data. Current Interpretive Data was last revised on 2017. Eosinophil pct 2.1 % [facility] Comment: Interpretive Data Percent cell count reference ranges are not reported, since discordance with absolute values may lead to misinterpretation of CBC data. Current Interpretive Data was last revised on 2017. Basophil pct 1.1 % [facility] Comment: Interpretive Data Percent cell count reference ranges are not reported, since discordance with absolute values may lead to misinterpretation of CBC data. Current Interpretive Data was last revised on 2017. Blood 03/27/2025 3:03 AM CDT 03/27/2025 3:37 AM CDT Kelsie Marina CONSULTING SERVICES MANAGER LAB BLOOD ORDERABLES Final R esult SHAAN [facility] [place] [address] * (ABNORMAL) Iron profile w/ IBC (03/27/2025 3:03 AM CDT) Iron 31(L) 50 - 150 mcg/dL TIBC 273 250 - 400 mcg/dL SHAAN Transferrin saturation 11(L) 20 - 50 % SHAAN Blood 03/27/2025 3:03 AM CDT 03/27/2025 3:37 AM CDT Kelsiemagan Landaoft CONSULTING SERVICES MANAGER LAB BLOOD ORDERABLES Final R esult Performing Organization Address [facility] de Phone Number [address] [address] * (ABNORMAL) CBC with auto differential (03/27/2025 3:03 AM CDT) WBC 3.79(L) 3.80 - 9.90 K/cumm Hgb 11.8(L) 13.0 - 17.5 g/dL [facility] Hct 38.6(L) 38.9 - 50.3 % [facility] Plt 162 150 - 400 K/cumm [facility] MPV 10.4 9.1 - 12.3 fL [facility] RBC 4.44 4.30 - 5.80 M/cumm [facility] MCV 86.9 81.3 - 96.4 fL [facility] MCH 26.6(L) 27.1 - 33.3 pg [facility] MCHC 30.6(L) 32.3 - 35.7 g/dL [facility] RDW CV 14.3 11.1 - 14.9 % [facility] RDW SD 45.0 35.7 - 48.1 fL [facility] NRBC abs 0.00 0.00 - 0.01 K/cumm [facility] Blood 03/27/2025 3:03 AM CDT 03/27/2025 3:37 AM CDT us Kelsie Marina CONSULTING SERVICES MANAGER LAB BLOOD ORDERABLES Final R esult Performing Organization Address [facility] de Phone Number [address] [address] * Magnesium (03/27/2025 3:03 AM CDT) Pathologist [facility] Magnesium 1.9 1.4 - 2.5 mg/dL Blood 03/27/2025 3:03 AM CDT 03/27/2025 3:37 AM CDT Kelsie Marina CONSULTING SERVICES MANAGER LAB BLOOD ORDERABLES Final R esult Performing Organization Address [facility] de Phone Number ROMANA[address] [place] [address] * (ABNORMAL) Hemoglobin A1c (03/27/2025 3:03 AM CDT) [facility] Hgb A1C 6.7(H) 4.0 - 5.6 % Estimated Average Glucose 146 mg/dL [facility] Comment: The ADA recommends reporting an estimated Average Glucose (eAG) with all Hemoglobin A1c results using the equation derived from a study of 507 normal and diabetic adults. Minority populations were underrepresented and children were not included. (Diabetes Care 31:6144-8976, 2008). The eAG is not equivalent to a fasting glucose. Blood 03/27/2025 3:03 AM CDT 03/27/2025 3:37 AM CDT Constantino Jones MD LAB BLOOD ORDERABLES Fin al Result Performing Organization Address [facility] Phone Number [address] [address] * (ABNORMAL) Basic metabolic panel (03/27/2025 3:03 AM CDT) [facility] Sodium 143 135 - 145 mmol/L Potassium, pl 3.6 3.3 - 4.9 mmol/L [facility] Chloride 98 97 - 110 mmol/L [facility] CO2 33(H) 22 - 32 mmol/L [facility] Anion gap 12 2 - 15 mmol/L [facility] BUN 11 6 - 25 mg/dL [facility] Creatinine 1.41(H) 0.80 - 1.30 mg/dL [facility] Glucose 109 70 - 199 mg/dL [facility] Comment: Interpretive Data Fasting glucose >/= 126 mg/dl is diagnostic for diabetes. Fasting is defined as no caloric intake for at least 8 hours. Fasting glucose between 100 mg/dl to 125 mg/dl is diagnostic of prediabetes. In a patient with classic symptoms of hyperglycemia or hyperglycemic crisis, a random glucose >/= 200 mg/dl is diagnostic for diabetes. In the absence of unequivocal hyperglycemia, results should be confirmed by repeat testing. The classification and Diagnosis of Diabetes Diabetes Care 202; 46: S19-S40. Current interpretive data was last revised 2022. Calcium 9.7 8.5 - 10.3 mg/dL SHAAN Blood 03/27/2025 3:03 AM CDT 03/27/2025 3:37 AM CDT Kelsie Marina NP LAB BLOOD ORDERABLES Final R esult Performing Organization Address City/[facility]/ZIP Co de Phone Number ROMANA[address] [place] [address] * POCT glucose (03/26/2025 8:32 PM CDT) [facility] Signature Glucose, POC 106 70 - 199 mg/dL Blood 03/26/2025 8:32 PM CDT 03/26/2025 8:32 PM CDT Sorin Erwin MD LAB POCT ORDERABLES - DEVICE Final Result Performing Organization Address [facility] de Phone Number [address] [place] [address] * CT Chest PE (CTA) W Contrast (03/26/2025 8:11 PM CDT) Anatomical Region Laterality Modality Body N/A Computed Tomogra phy 03/27/2025 4:54 AM CDT Narrative 03/27/2025 5:16 AM CDT EXAM DESCRIPTION: CT CHEST PE (CTA) W CONTRAST REASON FOR STUDY: Pulmonary embolism (PE) suspected, high prob C/o worsening shortness of breath x weeks Endorses: shortness of breath on exertion, inability to lay flat d/t shortness of breath, feels like an anvil is on my chest, chest pressure/discomfort with breathing Denies: cough/congestion, fevers/chills, n/v/d, urinary complaints, abd pain Wears CPAP at night, has been needing CPAP during the day due to shortness of breath. RR even/nl. NAD. AAOx4. Presents in wheelchair. PMHx: CHF, HTN, DM type 2 TECHNIQUE: CT angiogram of the chest performed with intravenous contrast using helical scanning technique with dynamic intravenous contrast injection. Reconstructed coronal and sagittal MPR images reviewed. All images stored on PACS. 3D MIP images rendered on scanning unit and reviewed at time of interpretation. Automated exposure control was used as a dose optimization technique for this examination. CONTRAST TYPE/DOSE: 100mL of IOVERSOL 350 MG IODINE/ML INTRAVENOUS SYRINGE injected via intravenous COMPARISON: Chest x-ray of March 26, 2025. REFERENCE: Per ACR white paper recommendations, unless otherwise specified no follow-up imaging is recommended for incidental renal and adrenal lesions per consensus recommendations based on imaging criteria. Further lab evaluation could be pursued based on clinical findings. FINDINGS: NECK BASE: Unremarkable. 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 LYMPH NODES: No axillary lymphadenopathy is seen by CT size criteria. There is a large lymph node in the aortopulmonary window measuring 3.3 cm in short axis. Are multiple enlarged paratracheal lymph nodes with exact dimensions difficult to measure given the large amount of streak artifact from the adjacent SVC. There is an enlarged lymph node in the subcarinal region measuring 1.7 cm in short axis. There are multiple enlarged bilateral hilar nodes measuring up to 1.6 cm in short axis. MEDIASTINUM/CHAY: No masses seen. An aortic stent valve is seen in place. There is mild atherosclerosis of the aorta. There is moderate coronary artery calcification. The contrast bolus is adequate . There is streak artifact related to dense contrast in the SVC, somewhat limiting evaluation of the adjacent right upper lobe vasculature. The pulmonary arteries are well evaluated to the subsegmental level. There are no filling defects seen in the pulmonary arteries on the axial or coronal images to suggest pulmonary embolism. There is no evidence of left intraventricular septal bowing. There is moderate reflux of contrast into the IVC and hepatic veins. There is mild global cardiomegaly. There is no significant pericardial effusion. PLEURA: Are trace bilateral pleural effusions, greater on the right than the left. LUNGS: There is mild patchy ground-glass opacity seen in the lower lobes bilaterally and dependent bibasilar atelectasis. There are multiple small nodules seen scattered through out the lungs bilaterally (series 5, images 29, 31-33, 36, 39, 51-53, 56, 65, 71, 74, and 82), measuring up to 9 mm (right upper lobe, image 71). There is platelike atelectasis versus scarring in the lingula. There is dependent atelectasis and interlobular septal thickening seen in the lung bases bilaterally. There is patchy faint ground-glass opacity in the dependent portions of the lung bilaterally. The central airways are normal. MUSCULOSKELETAL: No acute abnormality. CHEST WALL/BREAST: There is mild anasarca through out the chest wall. UPPER ABDOMEN: No significant abnormality. OTHER: No other significant abnormality. IMPRESSION: 1. No CTA evidence of pulmonary embolism. 2. Mild global cardiomegaly with moderate reflux of contrast into the IVC and hepatic veins, trace bilateral pleural effusions, and mild anasarca, suggestive of congestive heart failure. 3. Mild patchy ground-glass opacity in the lower lobes bilaterally and dependent bibasilar atelectasis, likely related to pulmonary edema. 4. Multiple small nodules seen scattered through out the lungs bilaterally, measuring up to 9 mm. Per Fleischner Society Guidelines, non-contrast chest CT at 3 to 6 months is recommended. If the nodules are stable at time of repeat CT, then future CT at 18 to 24 months (from today's scan) is considered optional for low-risk patients, but is recommended for high-risk patients. 5. Mediastinal and bilateral hilar lymphadenopathy, likely reactive. Recommend attention on follow-up imaging. 6. Aortic stent valve in place. 7. Moderate coronary artery calcification. THIS IS AN ELECTRONICALLY VERIFIED FINAL REPORT 03/27/2025 5:16 AM - Electronically signed by Debby Gerber M.D. SN T: Report ID: [id number] Reading Location: [id number] Procedure Note Debby Gerber MD - 03/27/2025 EXAM DESCRIPTION: CT CHEST PE (CTA) W CONTRAST REASON FOR STUDY: Pulmonary embolism (PE) suspected, high prob C/o worsening shortness of breath x weeks Endorses: shortness ofbreath on exertion, inability to lay flat d/t shortness of breath, feels like ananvil is on my chest, chest pressure/discomfort with breathing Denies: cough/congestion, fevers/chills, n/v/d, urinary complaints, abd painWears CPAP at night, has been needing CPAP during the day due to shortness of breath. RR even/nl. NAD. AAOx4. Presents in wheelchair. PMHx: CHF,HTN, DM type 2 TECHNIQUE: CT angiogram of the chest performed with intravenous contrastusing helical scanning technique with dynamic intravenous contrast injection. Reconstructed coronal and sagittal MPR images reviewed. All images storedon PACS. 3D MIP images rendered on scanning unit and reviewed at time of interpretation. Automated exposure control was used as a doseoptimization technique for this examination. CONTRAST TYPE/DOSE: 100mL of IOVERSOL 350 MG IODINE/ML INTRAVENOUSSYRINGE injected via intravenous COMPARISON: Chest x-ray of March 26, 2025. REFERENCE: Per ACR white paper recommendations, unless otherwise specifiedno follow-up imaging is recommended for incidental renal and adrenal lesionsper consensus recommendations based on imaging criteria. Further labevaluation could be pursued based on clinical findings. FINDINGS: NECK BASE: Unremarkable. 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 LYMPH NODES: No axillary lymphadenopathy is seen by CT size criteria.There is a large lymph node in the aortopulmonary window measuring 3.3 cm inshort axis. Are multiple enlarged paratracheal lymph nodes with exactdimensions difficult to measure given the large amount of streak artifact from the adjacent SVC. There is an enlarged lymph node in the subcarinal region measuring 1.7 cm in short axis. There are multiple enlarged bilateralhilar nodes measuring up to 1.6 cm in short axis. MEDIASTINUM/CHAY: No masses seen. An aortic stent valve is seen inplace. There is mild atherosclerosis of the aorta. There is moderate coronary artery calcification. The contrast bolus is adequate . There is streak artifact related to dense contrast in the SVC, somewhat limitingevaluation of the adjacent right upper lobe vasculature. The pulmonary arteries arewell evaluated to the subsegmental level. There are no filling defects seenin the pulmonary arteries on the axial or coronal images to suggest pulmonary embolism. There is no evidence of left intraventricular septal bowing. There is moderate reflux of contrast into the IVC and hepatic veins.There is mild global cardiomegaly. There is no significant pericardialeffusion. PLEURA: Are trace bilateral pleural effusions, greater on the right thanthe left. LUNGS: There is mild patchy ground-glass opacity seen in the lower lobes bilaterally and dependent bibasilar atelectasis. There are multiple small nodules seen scattered through out the lungs bilaterally (series 5, , 31-33, 36, 39, 51-53, 56, 65, 71, 74, and 82), measuring up to 9 mm (right upper lobe, image 71). There is platelike atelectasis versus scarring inthe lingula. There is dependent atelectasis and interlobular septalthickening seen in the lung bases bilaterally. There is patchy faint ground-glass opacity in the dependent portions of the lung bilaterally. The central airways are normal. MUSCULOSKELETAL: No acute abnormality. CHEST WALL/BREAST: There is mild anasarca through out the chest wall. UPPER ABDOMEN: No significant abnormality. OTHER: No other significant abnormality. IMPRESSION: 1. No CTA evidence of pulmonary embolism. 2. Mild global cardiomegaly with moderate reflux of contrast into theIVC and hepatic veins, trace bilateral pleural effusions, and mild anasarca, suggestive of congestive heart failure. 3. Mild patchy ground-glass opacity in the lower lobes bilaterally and dependent bibasilar atelectasis, likely related to pulmonary edema. 4. Multiple small nodules seen scattered through out the lungsbilaterally, measuring up to 9 mm. Per Fleischner Society Guidelines, non-contrastchest CT at 3 to 6 months is recommended. If the nodules are stable at time ofrepeat CT, then future CT at 18 to 24 months (from today's scan) is considered optional for low-risk patients, but is recommended for high-riskpatients. 5. Mediastinal and bilateral hilar lymphadenopathy, likely reactive. Recommend attention on follow-up imaging. 6. Aortic stent valve in place. 7. Moderate coronary artery calcification. THIS IS AN ELECTRONICALLY VERIFIED FINAL REPORT 03/27/2025 5:16 AM - Electronically signed by Debby Gerber M.D. SN T: Report ID: [id number] Reading Location: [place] [address] Vickie Paris NP IMG CT PROCEDURES Final R esult * (ABNORMAL) D-dimer, quantitative (03/26/2025 6:01 PM CDT) D-Dimer 1,010(H) <=499 ng/mL FEU Comment: Interpretive data FDA approved the D-dimer, in conjunction with a low or moderate pretest probability score, to exclude venous thromboembolic events (VTE) (PE and DVT) in outpatients when the D-dimer result is < 500 ng/ml FEU. Evidence supports using an age-adjusted D-dimer cut-off for outpatients older than 50 (age x 10) to improve specificity without sacrificing sensitivity. Example: age 68, VTE cut-off 680 ng/ml FEU. References; Schouten HT et al. Brit Med J. 2013;346:f2492. Chester et al. Annals Int Med. 2015;163:701-11. Current interpretive data was last revised on 2019. Blood 03/26/2025 6:01 PM CDT 03/26/2025 6:04 PM CDT us Kelsie Marina NP LAB BLOOD ORDERABLES Final R esult SHAAN [address] [facility] [place] [address] * (ABNORMAL) Troponin T high-sensitivity 4-hour (03/26/2025 5:56 PM CDT) Trop T hs 62(H) <=22 ng/L Comment: Interpretive Data For further hscTnT resources including the diagnostic algorithm and an aid in interpretation, copy and paste this link: [email or web address]/[email or web address] Current Interpretive Data last revised 2020. Trop T hs delta -6 ng/L SHAAN WILSON Trop T hs interp Equivocal SHAAN Blood 03/26/2025 5:56 PM CDT 03/26/2025 6:04 PM CDT us Sanjay Balbuena MD LAB BLOOD ORDERABLES Final Resul t SHAAN [address] [facility] [place] [address] * (ABNORMAL) Troponin T high-sensitivity 2-hour (03/26/2025 3:28 PM CDT) Trop T hs 66(H) <=22 ng/L Comment: Interpretive Data For further hscTnT resources including the diagnostic algorithm and an aid in interpretation, copy and paste this link: [email or web address]/[email or web address] Current Interpretive Data last revised 2020. Trop T hs delta -2 ng/L [facility] Trop T hs interp Insignificant [facility] Blood 03/26/2025 3:28 PM CDT 03/26/2025 3:36 PM CDT us Sanjay Balbuena MD LAB BLOOD ORDERABLES Final Resul t Performing Organization Address City/State/[facility] Co de Phone Number SHAAN [address] [facility] [place] [address] * XR Chest 1 Vw Portable (If patient hemodynamically UNstable or UNable to ambulate) (03/26/2025 2:17PM CDT) Anatomical Region Laterality Modality Body, Chest N/A Computed Radiogr aphy 03/26/2025 2:22 PM CDT Narrative 03/26/2025 2:23 PM CDT EXAM DESCRIPTION: XR CHEST 1 VIEW REASON FOR STUDY: Shortness of breath for weeks. TECHNIQUE: Frontal radiographic view of the chest COMPARISON: Chest radiograph 11/18/2021 FINDINGS: LUNGS/PLEURAE: Mild pulmonary vascular congestion. No large pleural effusion or focal consolidation. There is no pneumothorax. HEART/MEDIASTINUM: Heart size is normal. Normal mediastinal and hilar contours. Prior TAVR. HARDWARE/LINES/TUBES: Left chest generator pack with leads projecting over right atrium and right ventricle. BONES: No acute findings. IMPRESSION: 1. Mild pulmonary vascular congestion. THIS IS AN ELECTRONICALLY VERIFIED FINAL REPORT 03/26/2025 2:23 PM - Electronically signed by Emerson Mary.D. LB T: Report ID: [id number] Reading Location: [id number] Procedure Note Emerson Reed MD - 03/26/2025 EXAM DESCRIPTION: XR CHEST 1 VIEW REASON FOR STUDY: Shortness of breath for weeks. TECHNIQUE: Frontal radiographic view of the chest COMPARISON: Chest radiograph 11/18/2021 FINDINGS: LUNGS/PLEURAE: Mild pulmonary vascular congestion. No large pleural effusion or focal consolidation. There is no pneumothorax. HEART/MEDIASTINUM: Heart size is normal. Normal mediastinal and hilar contours. Prior TAVR. HARDWARE/LINES/TUBES: Left chest generator pack with leads projectingover right atrium and right ventricle. BONES: No acute findings. IMPRESSION: 1. Mild pulmonary vascular congestion. THIS IS AN ELECTRONICALLY VERIFIED FINAL REPORT 03/26/2025 2:23 PM - Electronically signed by Emerson Reed M.D. LB T: Report ID: [id number] Reading Location: [id number] us Sorin Erwin MD IMG XR PROCEDURES Final Resul t * (ABNORMAL) Troponin T high-sensitivity series (baseline, 2hr, 4hr, 6hr) (03/26/2025 1:26 PM CDT) Trop T hs 68(H) <=22 ng/L Comment: Interpretive Data For further hscTnT resources including the diagnostic algorithm and an aid in interpretation, copy and paste this link: [email or web address].[email or web address]/show/[email or web address] Current Interpretive Data last revised 2020. Blood 03/26/2025 1:26 PM CDT 03/26/2025 1:30 PM CDT us Sorin Erwin MD LAB BLOOD ORDERABLES Final Re sult [facility] [address] [facility] Department [place] [address] * (ABNORMAL) eGFR (03/26/2025 1:26 PM CDT) [facility] eGFR 52(L) >=60 mL/min/1. 73 m2 Comment: Interpretive Data Reference Interval Normal >/= 90 mL/min/1.73m2 Mildly decreased* 60 - 89 mL/min/1.73m2 Mildly to moderately decreased 45 - 59 mL/min/1.73m2 Moderately to severely decreased 30 - 44 mL/min/1.73m2 Severely decreased 15 - 29 mL/min/1.73m2 Kidney Failure < 15 mL/min/1.73m2 *Relative to young adult level Estimated glomerular filtration rate is determined by the 2020 CKD-EPI equation recommended by the National Kidney Foundation (A Unifying Approach to GFR Estimation: Recommendations of the NKF-ASK Task Force on Reassessing the Inclusion of Race in Diagnosing Kidney Disease, JASN 2020). The CKD-EPI equation should not be used for patients with unstable renal function and has not been validated in children and those over 70. Current interpretive data was last reviewed 2021. Blood 03/26/2025 1:26 PM CDT 03/26/2025 1:30 PM CDT us Sorin Erwin MD LAB BLOOD ORDERABLES Final Re sult [facility] [address] [facility] Department of Laboratories [place], [place] [id number] * (ABNORMAL) Differential, auto (03/26/2025 1:26 PM CDT) [facility] Neutrophil abs 2.19 1.50 - 6.50 K/cumm Imm gran abs 0.01 0.00 - 0.10 K/cumm [facility] Lymphocyte abs 0.65(L) 0.80 - 3.30 K/cumm [facility] Monocyte abs 0.72 0.20 - 0.80 K/cumm [facility] Eosinophil abs 0.13 0.00 - 0.50 K/cumm [facility] Basophil abs 0.04 0.00 - 0.10 K/cumm [facility] Neutrophil pct 58.4 % [facility] Comment: Interpretive Data Percent cell count reference ranges are not reported, since discordance with absolute values may lead to misinterpretation of CBC data. Current Interpretive Data was last revised on 2017. Imm gran pct 0.3 % [facility] Comment: Interpretive Data Percent cell count reference ranges are not reported, since discordance with absolute values may lead to misinterpretation of CBC data. Current Interpretive Data was last revised on 2017. Lymphocyte pct 17.4 % [facility] Comment: Interpretive Data Percent cell count reference ranges are not reported, since discordance with absolute values may lead to misinterpretation of CBC data. Current Interpretive Data was last revised on 2017. Monocyte pct 19.3 % [facility] Comment: Interpretive Data Percent cell count reference ranges are not reported, since discordance with absolute values may lead to misinterpretation of CBC data. Current Interpretive Data was last revised on 2017. Eosinophil pct 3.5 % [facility] Comment: Interpretive Data Percent cell count reference ranges are not reported, since discordance with absolute values may lead to misinterpretation of CBC data. Current Interpretive Data was last revised on 2017. Basophil pct 1.1 % [facility] Comment: Interpretive Data Percent cell count reference ranges are not reported, since discordance with absolute values may lead to misinterpretation of CBC data. Current Interpretive Data was last revised on 2017. Blood 03/26/2025 1:26 PM CDT 03/26/2025 1:30 PM CDT Sorin Erwin MD LAB BLOOD ORDERABLES Final Re sult SHAAN [address] [facility] [place] [address] * (ABNORMAL) Pro B-type natriuretic peptide (03/26/2025 1:26 PM CDT) NT-proBNP 4,008(H) <=300 pg/mL Comment: Interpretive Comments: A. Dyspnea in Acute Care Setting All Ages: < 300 pg/ml, acute heart failure unlikely. < 50 yrs: 300 - 450 pg/ml, further investigation warranted. > 450 pg/ml, acute heart failure likely. 50 - 74 yrs: 300 - 900 pg/ml, further investigation warranted. > 900 pg/ml, acute heart failure likely . > or = 75 yrs: 450 - 1800 pg/ml, further investigation warranted. > 1800 pg/ml, acute heart failure likely. B. Non-acute Setting < 75 yrs < 125 pg/ml, rules out heart failure. > or = 125 pg/ml, further investigation warranted. > or = 75 yrs < 450 pg/ml, rules out heart failure. > or = 450 pg/ml, further investigation warranted. - Knowledge of each individual patient's NT-proBNP range may be more useful than using similar cut-points for every patient. Please note that marked elevations in NT-proBNP levels may be observed in state other than Left Ventricular Congestive Failure, including: acute coronary syndromes, right heart strain/failure (including pulmonary embolism and cor pulmonale), critical illness, renal failure, as well as advanced age. - References: 1. Astrid CHAMPAGNE et.al. Eur Heart J. 2006:27:330-337. 2. Manish RW, James LEE. J. AM Sj Cardiol: Cardiovasc Imag. 2009;2: 216- 225. Interpretive Data Last Revised Date: 2018. Blood 03/26/2025 1:26 PM CDT 03/26/2025 1:30 PM CDT us Sorin Erwin MD LAB BLOOD ORDERABLES Final Re sult [facility] [address] [facility] Department of Laboratories [place] [address] * (ABNORMAL) CBC with auto differential (03/26/2025 1:26 PM CDT) WBC 3.74(L) 3.80 - 9.90 K/cumm Hgb 12.1(L) 13.0 - 17.5 g/dL [facility] Hct 37.9(L) 38.9 - 50.3 % [facility] Plt 157 150 - 400 K/cumm [facility] MPV 10.3 9.1 - 12.3 fL [facility] RBC 4.37 4.30 - 5.80 M/cumm [facility] MCV 86.7 81.3 - 96.4 fL [facility] MCH 27.7 27.1 - 33.3 pg [facility] MCHC 31.9(L) 32.3 - 35.7 g/dL [facility] RDW CV 14.6 11.1 - 14.9 % [facility] RDW SD 45.8 35.7 - 48.1 fL [facility] NRBC abs 0.00 0.00 - 0.01 K/cumm [facility] Blood 03/26/2025 1:26 PM CDT 03/26/2025 1:30 PM CDT Sorin Erwin MD LAB BLOOD ORDERABLES Final Re sult [facility] [address] [facility] [place] [address] * (ABNORMAL) Comprehensive metabolic panel (03/26/2025 1:26 PM CDT) Sodium 140 135 - 145 mmol/L Potassium, pl 4.1 3.3 - 4.9 mmol/L [facility] Comment:Hemolyzed; Potassium value may be falsely elevated by as much as 1.0 mmol/L. Suggest redraw and reanalysis. Chloride 100 97 - 110 mmol/L [facility] CO2 30 22 - 32 mmol/L [facility] Anion gap 10 2 - 15 mmol/L [facility] BUN 11 6 - 25 mg/dL [facility] Creatinine 1.43(H) 0.80 - 1.30 mg/dL [facility] Glucose 99 70 - 199 mg/dL [facility] Comment: Interpretive Data Fasting glucose >/= 126 mg/dl is diagnostic for diabetes. Fasting is defined as no caloric intake for at least 8 hours. Fasting glucose between 100 mg/dl to 125 mg/dl is diagnostic of prediabetes. In a patient with classic symptoms of hyperglycemia or hyperglycemic crisis, a random glucose >/= 200 mg/dl is diagnostic for diabetes. In the absence of unequivocal hyperglycemia, results should be confirmed by repeat testing. The classification and Diagnosis of Diabetes Diabetes Care 202; 46: S19-S40. Current interpretive data was last revised 2022. Calcium 9.7 8.5 - 10.3 mg/dL [facility] Bilirubin, total 0.7 0.1 - 1.2 mg/dL [facility] Protein, pl 6.9 6.5 - 8.5 g/dL [facility] Albumin 3.8 3.5 - 5.0 g/dL [facility] Alk phos 74 40 - 130 Units/L [facility] ALT 18 7 - 55 Units/L [facility] AST 31 10 - 50 Units/L [facility] Blood 03/26/2025 1:26 PM CDT 03/26/2025 1:30 PM CDT Sorin Erwin MD LAB BLOOD ORDERABLES Final Re sult Performing Organization Address City/[facility]/ZIP Co de Phone Number [facility] [address] [facility] Department [place] [address] * ECG 12 lead (03/26/2025 1:25 PM CDT) Pathologist [facility] Ventricular Rate EKG/Min 76 BPM [facility] Atrial Rate 76 BPM [facility] [place]-Interval (MSEC) 240 ms [facility] QRS-Interval (MSEC) 166 ms [facility] QT-Interval (MSEC) 466 ms [facility] QTc 524 ms [facility] P Morrison 80 degrees [facility] R Morrison -64 degrees [facility] T Morrison 100 degrees [facility] Diagnosis Atrial-sensed ventricular-pa maryanne rhythm with prolonged AV conduction Abnormal ECG When compared with ECG of 22-JUN-2024 13:15, Electronic ventricular pacemaker has replaced Electronic atrial pacemaker Confirmed by ZAIRA BANG M.D. ([id number]) on 03/26/2025 3:35:52 PM [facility] 03/26/2025 1:25 PM CDT 03/26/2025 3:35 PM CDT Sorin Erwin MD ECG ORDERABLES Final Result Performing Organization Address City/[facility]/ZIP Co de Phone Number [facility] * James Visual Field - OU - Both Eyes (03/22/2025 10:55 AM CDT) Anatomical Region Laterality Modality Head Visual Field Narrative 03/22/2025 10:55 AM CDT Right Eye Fixation was good. Cooperation was good. Reliability was good. Progression has been stable. Foveal threshold was normal. Findings include normal observations. Left Eye Fixation was good. Cooperation was good. Reliability was good. Progression has been stable. Foveal threshold was normal. Findings include normal observations. Teo Avendano OD OPHTH VISUAL FIELD Final Re sult * Thyroid Function Posey (02/14/2025 11:25 AM CDT) Blood Natalie Maher NP LAB BLOOD ORDERABLES Shirley l Result EXTERNAL LAB * Cardiology Document Scan (02/13/2025 2:47 PM CDT) Anatomical Region Laterality Modality Other Samir Cao MD CV CARDIAC SERVICES PROCEDURES Final Result * ECG 12 lead (02/12/2025 12:33 PM CDT) Natalie Maher CONSULTING SERVICES MANAGER ECG ORDERABLES Edited Re sult - Final * DEVICE CHECK - IN OFFICE (02/12/2025 11:24 AM CDT) Anatomical Region Laterality Modality Other 02/12/2025 2:00 AM CDT Narrative 02/26/2025 7:04 AM CDT Interpretation Summary: Battery and Leads (BL) Normal parameters noted on battery and lead(s) --- battery longevity estimate: 2.3yrs Magnet rate 98.1ppm. Presenting Rhythm (AZ) Atrial Pacing-Ventricular Pacing (AP-NET DEVELOPER WITH WCF) --- Underlying rhythm: SB 50s Arrhythmic events (AE) No new arrhythmic events in monitoring period Anticoagulation (AC) Patient is not on anticoagulant therapy Patient on antiplatelet therapy Procedure Note Mikhova, Krasimira Mikhailova, MD - 02/26/2025 Interpretation Summary: Battery and Leads (BL) Normal parameters noted on battery and lead(s) --- battery longevityestimate: 2.3yrs Magnet rate 98.1ppm. Presenting Rhythm (AZ) Atrial Pacing-Ventricular Pacing (AP-NET DEVELOPER WITH WCF) --- Underlying rhythm: SB 50s Arrhythmic events (AE) No new arrhythmic events in monitoring period Anticoagulation (AC) Patient is not on anticoagulant therapy Patient on antiplatelet therapy Samir Cao MD CV CARDIAC SERVICES PROCEDURES Final Result * SLEEP LAB/STUDY - RESULT (01/29/2025 4:58 PM CDT) Provider Scanning Final Result * DEVICE CHECK - REMOTE (01/25/2025 7:22 AM CDT) Anatomical Region Laterality Modality Other 01/25/2025 7:22 AM CDT Narrative 02/18/2025 12:19 PM CDT Interpretation Summary: Battery and Leads (BL) Normal parameters noted on battery and lead(s) --- 2.4 years remaining (this is an estimate based on prior usage) Presenting Rhythm (AZ) Atrial Pacing-Ventricular Pacing (AP-NET DEVELOPER WITH WCF) --- rate 60 Arrhythmic events (AE) No new arrhythmic events in monitoring period Anticoagulation (AC) Patient is not on anticoagulant therapy Patient on antiplatelet therapy Transmission Information (TI) Device Summary Report Procedure Note Samir Cao MD - 02/18/2025 Interpretation Summary: Battery and Leads (BL) Normal parameters noted on battery and lead(s) --- 2.4 years remaining(this is an estimate based on prior usage) Presenting Rhythm (AZ) Atrial Pacing-Ventricular Pacing (AP-NET DEVELOPER WITH WCF) --- rate 60 Arrhythmic events (AE) No new arrhythmic events in monitoring period Anticoagulation (AC) Patient is not on anticoagulant therapy Patient on antiplatelet therapy Transmission Information (TI) Device Summary Report Samir Cao MD CV CARDIAC SERVICES PROCEDURES Final Result * PSA diagnostic (12/07/2024 2:05 PM CDT) PSA 0.3 0.0 - 4.0 ng/mL [facility] - Comment: Dian ECLIA methodology. According to the [place] [employer], Serum PSA should decrease and [...] - 12/10/2024 4:11 PM CDT Performed at: - [address] [id number] Accounting Advisory Services Manager: Chi Echavarria PhD, Phone: [phone] Nandini Tineo NP LAB BLOOD ORDERABLES Final Result [facility] - from Last 3 Months or Most Recently Relevant to Health Maintenance Insurance MEDICARE [facility] ADVANTAGE CHOICE PPO AETNA [facility] CHOICE PPO Advance Directives For more information, please contact: [phone] Documents on File Type Date Recorded Patient Behavioral Services Tech Expl anation ADVANCE DIRECTIVE 03/27/2025 3:41 PM POLST - Phys Order for PT Preferences ADVANCE DIRECTIVE 03/27/2025 3:40 PM Power of Envelope Stuffer-Medical * LIMITED - No CPR (Latest Code Status on File) Date Activated Date Inactivated Comments 03/26/2025 6:30 PM 03/30/2025 6:44 PM Question Answer Comments Provide aggressive medical m anagement before a full cardiopulmonary arrest occurs. Use antibiotics, IV Fluids, and medical treatment unless specifically selected below: No intubation * Full Code Date Activated Date Inactivated Comments 11/18/2021 7:10 PM 11/26/2021 7:48 PM Care Teams Parts Cataloguer Relationship Specialty Start Date End Date Santiago Bey MD [address] [place] [address] PCP - General Family Practice 01/05/22 Contreras Robbins MD Referring Physician Pulmonary Disease 01/16/19 Allyson Flood MD PhD [address] [place] [address] Consulting Physician Ophthalmology 10/03/20 Fransisca Macedo RN Registered Nurse Pulmonary Disease 04/06/23 Anton Omer Primary Route Sales Associate 03/14/25 Yordan Arboleda MD [address] [place] [address] Consulting Physician Cardiology 03/30/25
--- OUTSIDE RECORDS SUMMARY | 2025-04-02 15:47 | XMS_ITS | Encounter Summary ---
Author Organization [facility] Address [address] [place] [address] Phone Care Team Providers Care Food And Beverage Manager Name Role Phone Cuco Chatman MD Primary Care Provider [phone] Contreras Robbins MD Unavailable [phone] [facility] Hospital[facility]lyson leon MD PhD Unavailable [phone] Lenka Quezada MUSKRAT TRAPPER Unavailable [phone] Santiago Bey MD Primary Care Provider Fransisca Macedo RN Unavailable UnavailAnton Romano Unavailable Unavailable Yordan Arboleda MD Unavailable [phone] Encounter Details Date Type Department Care Team (Late st Contact Info) Description 12/14/2016 Orders Only [facility] CLINCONV Provider, MD Leigh Ann [address] [place] [address] Social History Tobacco Use Types Packs/Day Years Used Date Smoking Tobacco: Never Assessed Alcohol Use Standard Drinks/Week Comments No 0 (1 standard drink = 0.6 oz pur e alcohol) Sex and Gender Information Value Date Recorded Sex Assigned at Not on file 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 Gender Identity Not on file Sexual [...] documented as of this encounter Care Teams Food And Beverage Manager Relationship Specialty Start Date End Date Cuco Chatman MD [address] [place] [address] PCP - General 08/10/16 01/04/22 Santiago Bey MD [address] [place] [address] PCP - General Family Practice 01/05/22 Contreras Robbins MD [address] [place] [address] Referring Physician Pulmonary Disease 01/16/19 Allyson Flood MD PhD [address] [place] [address] Consulting Physician Ophthalmology 10/03/20 Lenka Quezada NP [address] [place] [address] Retail Representative 12/02/21 Fransisca Ballesteros, RN Registered Nurse Pulmonary Disease 04/06/23 Anton Omer Primary Gritting Machine Operator 03/14/25 Yordan Arboleda MD [address] [place] [address] Consulting Physician Cardiology 03/30/25 documented as of this encounter
--- OUTSIDE RECORDS SUMMARY | 2025-04-02 15:47 | XMS_ITS | Clinical Summary ---
Author Organization [facility] [employer] Address [address] [place] [address] Care Team Providers Care Auto Tech Name Role Phone Cuco Chatman MD Primary Care Provider [phone] Aditya Posadas RN Unavailable [phone] Source Comments [facility] [employer],non-owned Affiliates and Associated Physician Practices is amultiple site organization consisting of ambulatory clinics and hospital sitesin [place], [place], [place] and [place]. This disclosure is being madepursuant to the Care Everywhere program and may not contain all information available regarding this patient. Last updated 18.[facility] [employer] Allergies No known active allergies Medications * [...] - Risk 60-74 years 1-dose series) 2012 DEPRESSION SCREENING 06/27/2024 COVID-19 VACCINE (1 - 2023-2 5 season) 2025 INFLUENZA VACCINE (#1) 2025 HEPATITIS B VACCINE [...] patient's age to complete this topic Insurance [facility] Advance Directives * Full Code (Latest Code Status on File) Date Activated Date Inactivated Comments 01/29/2014 12:37 PM 01/30/2014 1:43 PM Care Teams Auto Tech Relationship Specialty Start Date End Date Cuco Chatman MD [address] [place] [address] PCP - General Internal Medicine 01/09/14 Aditya Posadas RN Pile Driving Nozzleman 01/30/14
--- OUTSIDE RECORDS SUMMARY | 2025-04-02 15:47 | XMS_ITS | Encounter Summary ---
Author Organization [facility] Address [address] [place] [address] Phone Care Team Providers Care Semiconductor Engineer Name Role Phone Cuco Chatman MD Primary Care Provider [phone] Contreras Robbins MD Unavailable [phone] [facility] HealthAllyson leon MD PhD Unavailable [phone] Lenka Quezada SEGMENT ASSEMBLER Unavailable [phone] Santiago Bey MD Primary Care Provider Fransisca Macedo RN Unavailable UnavailAnton Romano Unavailable Unavailable Yordan Arboleda MD Unavailable [phone] Encounter Details Date Type Department Care Team (Late st Contact Info) Description 10/09/2016 Orders Only [facility] IM CAR CLINCONV Provider, MD Leigh Ann [address] [place] [address] Social History Tobacco Use Types Packs/Day Years Used Date Smoking Tobacco: Never Assessed Alcohol Use Standard Drinks/Week Comments No 0 (1 standard drink = 0.6 oz pur e alcohol) Sex and Gender Information Value Date Recorded Sex Assigned at Not on file 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 Gender Identity Not on file Sexual Orientation [...] documented as of this encounter Care Teams Semiconductor Engineer Relationship Specialty Start Date End Date Cuco Chatman MD [address] [place] [address] PCP - General 08/10/16 01/04/22 Santiago Bey MD [address] [place] [address] PCP - General Family Practice 01/05/22 Contreras Robbins MD [address] [place] [address] Referring Physician Pulmonary Disease 01/16/19 Allyson Flood MD PhD [address] [place] [address] Consulting Physician Ophthalmology 10/03/20 Lenka Quezada NP [address] [place] [address] Sample Hand 12/02/21 Fransisca Ballesteros, RN Registered Nurse Pulmonary Disease 04/06/23 Anton Omer Primary Second Ride Fare Collector 03/14/25 Yordan Arboleda MD [address] [place] [address] Consulting Physician Cardiology 03/30/25 documented as of this encounter
--- OUTSIDE RECORDS SUMMARY | 2025-04-02 15:47 | XMS_ITS | Encounter Summary ---
Author Organization [facility] Address [address] [place] [address] Phone Care Team Providers Care Vertical Contour Band Saw Operator Name Role Phone Cuco Chatman MD Primary Care Provider [phone] Contreras Robbins MD Unavailable [phone] IowaAllyson MD PhD Unavailable [phone] Lenka Quezada SALARY MANAGER Unavailable [phone] Santiago Bey MD Primary Care Provider Fransisca Macedo RN Unavailable UnavailAnton Romano Unavailable Unavailable Yordan Arboleda MD Unavailable [phone] Encounter Details Date Type Department Care Team [...] on file 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 Gender Identity Not on file Sexual Orientation [...] documented as of this encounter Care Teams Vertical Contour Band Saw Operator Relationship Specialty Start Date End Date Cuco Chatman MD [address] [place] [address] PCP - General 08/10/16 01/04/22 Santiago Bey MD [address] [place] [address] PCP - General Family Practice 01/05/22 Contreras Robbins MD [address] [place] [address] Referring Physician Pulmonary Disease 01/16/19 IowaAllyson MD PhD [address] [place] [address] Consulting Physician Ophthalmology 10/03/20 Lenka Quezada NP [address] [place] [address] Osteopathic Resident 12/02/21 3 Fransisca Macedo RN Registered Nurse Pulmonary Disease 04/06/23 Anton Omer Primary Hedis Specialist 03/14/25 Yordan Arboleda MD [address] [place] [address] Consulting Physician Cardiology 03/30/25 documented as of this encounter
--- OUTSIDE RECORDS SUMMARY | 2025-04-02 15:47 | XMS_ITS | Clinical Summary ---
Author Organization [facility] Address [address] [place] [address] Care Team Providers Care Edge Drummer Name Role Phone Maxime Ojeda MD Unavailable [phone] Social History Tobacco Use Types Packs/Day Years [...] Annual Medicare Wellness Visit 2017 COVID-19 Vaccine (1 - 2023-2 5 season) 2025 Influenza Adult (#1) 2025 RSV Immunization or 60+ Years (1 - [...] age to complete this topic Insurance AETNA MEDICARE Care Teams Edge Drummer Relationship Specialty Start Date End Date Maxime Ojeda MD [address] [address] [place] Engineer CARDIOVASCULAR DISEASE 06/27/16
--- OUTSIDE RECORDS SUMMARY | 2025-04-02 15:47 | XMS_ITS | Encounter Summary ---
Author Organization [facility] Address [address] [place] [address] Phone Care Team Providers Care Shop Repairer Name Role Phone Contreras Robbins MD Unavailable [phone] Allyson Flood MD PhD Unavailable [phone] Santiago Bey MD Primary Care Provider Fransisca Macedo RN Unavailable UnavailAnton Romano Unavailable Unavailable Yordan Arboleda MD Unavailable [phone] Encounter Details Date Type Department Care Team (Late st Contact Info) Description 02/12/2025 Results Follow-Up [facility] Cardiology [address] [facility] Advanced Medicine 8th [place] [address] [place] [address] Natalie Maher, ETHYLENE PLANT OPERATOR [address] [facility] [place] [address] ECG 12 lead, Thyroid Function Sharp Social History Tobacco Use Types Packs/Day Years [...] on file 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 Gender Identity Not on file Sexual Orientation Not on file documented as of this encounter Plan of Treatment Not on file documented as of this encounter Visit Diagnoses Not on filedocumented in this encounter Care Teams Shop Repairer Relationship Specialty Start Date End Date Santiago Bey MD [address] [place] [address] PCP - General Family Practice 01/05/22 Conrteras oRbbins MD Referring Physician Pulmonary Disease 01/16/19 Allyson Flood MD PhD [address] [place] [address] Consulting Physician Ophthalmology 10/03/20 Fransisca Macedo RN Registered Nurse Pulmonary Disease 04/06/23 Anton Omer Primary Recreation Program Coordinator 03/14/25 Yordan Arboleda MD [address] [place] [address] Consulting Physician Cardiology 03/30/25 documented as of this encounter
--- OUTSIDE RECORDS SUMMARY | 2025-04-02 15:47 | XMS_ITS | Encounter Summary ---
Author Organization [facility] Address [address] [place] [address] Care Team Providers Care Fountain Vending Mechanic Name Role Phone Contreras Robbins MD Unavailable [phone] [facility] ClevelandAllyson leon MD PhD Unavailable [phone] Santiago Bey MD Primary Care Provider Fransisca Macedo RN Unavailable UnavailAnton Romano Unavailable Unavailable Yordan Arboleda MD Unavailable [phone] Encounter Details Date Type Department Care Team (Late st Contact Info) Description 03/27/2025 [facility] Initial Eligibility Review [facility] [place] [address] Arpan Rothman RN Social History Tobacco Use Types Packs/Day Years [...] often do you attend chur ch or lutheran services? 1 to 4 times per year 03/27/2025 Do you belong to any clubs o r organizations such as quaker groups, unions, fraternal or athletic groups, or [...] any time in the past 12 m [facility], were you homeless or living in a [facility] (including now)? No 03/27/2025 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 Gender Identity Not on file Sexual Orientation Not on file documented as of this encounter Plan of Treatment Not on file documented as of this encounter Visit Diagnoses Not on filedocumented in this encounter Care Teams Fountain Vending Mechanic Relationship Specialty Start Date End Date Santiago Bey MD [address] [place] [address] PCP - General Family Practice 01/05/22 Contreras Robbins MD Referring Physician Pulmonary Disease 01/16/19 Allyson Flood MD PhD [address] [place] [address] Consulting Physician Ophthalmology 10/03/20 Fransisca Macedo RN Registered Nurse Pulmonary Disease 04/06/23 Anton Omer Primary Sock Mender 03/14/25 Yordan Arboleda MD [address] [place] [address] Consulting Physician Cardiology 03/30/25 documented as of this encounter
--- OUTSIDE RECORDS SUMMARY | 2025-04-02 15:47 | XMS_ITS | Clinical Summary ---
Author Organization [facility] Address [address] [place] [address] Phone Care Team Providers Care Scout Leaser Name Role Phone Santiago Bey MD Primary Care Provider Allergies Active Allergy Reactions Criticality Noted Date Comments Latex 03/04/2022 Medications Blood Glucose Monitoring Suppl ([facility] Verio Reflect) w/Device kit USE TO TEST [...] time each day 11/30/2021 Active glucose blood ([employer] Verio) test strip USE TO TEST ONCE DAILY 10/31/2021 Active Lancets (OneTouch Delica Plus [id number]) misc USE TO TEST ONCE DAILY 10/31/2021 [...] exists Insurance AETNA MEDICARE ADVANTAGE Care Teams Scout Leaser Relationship Specialty Start Date End Date Santiago Bey MD [address] [place] [address] PCP - General Internal Medicine 02/15/22
--- OUTSIDE RECORDS SUMMARY | 2025-04-02 15:47 | XMS_ITS | Encounter Summary ---
Author Organization [facility] Address [address] [place] [address] Phone Care Team Providers Care Microsoft Dynamics Consultant Name Role Phone Contreras Robbins MD Unavailable [phone] Allyson Flood MD PhD Unavailable [phone] Santiago Bey MD Primary Care Provider Fransisca Macedo RN Unavailable UnavailAnton Romano Unavailable Unavailable Yordan Arboleda MD Unavailable [phone] Encounter Details Date Type Department Care Team (Late st Contact Info) Description 04/01/2025 Telephone [facility] Medicine Cardiology [address] [facility] [address] [facility] 8th [place] [address] [place] [address] Robin Villavicencio MD [address] [facility] [address] [place] [address] Social History Tobacco Use Types Packs/Day Years [...] often do you attend chur ch or roman catholic services? 1 to 4 times per year 03/27/2025 Do you belong to any clubs o r organizations such as yarsani groups, unions, fraternal or athletic groups, or [...] any time in the past 12 m [facility], were you homeless or living in a usp (including now)? 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 She reports he is doing well. He will keep his appointment on 04/16. She will notify us if he begins to feel unwell and we will move his appointment up. Requested return call for any questions or concerns. * Telephone Encounter - Nica Quan - 04/01/2025 11:27 AM CDT Maye Pt's spouse calling stating pt was seen in the hospital and wants to know if pt should have appt sooner than 04/16 due to hospital stay. Please call documented in this encounter Plan of Treatment Not on file documented as of this encounter Visit Diagnoses Not on filedocumented in this encounter Care Teams Microsoft Dynamics Consultant Relationship Specialty Start Date End Date Santiago Bey MD [address] [place] [address] PCP - General Family Practice 01/05/22 Contreras Robbins MD Referring Physician Pulmonary Disease 01/16/19 Allyson Flood MD PhD [address] [place] [address] Consulting Physician Ophthalmology 10/03/20 Fransisca Macedo, RN Registered Nurse Pulmonary Disease 04/06/23 Anton Omer Primary Lathe Machinist 03/14/25 Yordan Arboleda MD [address] [facility] [place] [address] Consulting Physician Cardiology 03/30/25 documented as of this encounter
--- OUTSIDE RECORDS SUMMARY | 2025-04-02 15:47 | XMS_ITS ---
Author Organization [facility] Address [address] [place] [address] Care Team Providers Care Sewer Digger Name Role Phone Contreras Robbins MD Unavailable [phone] Allyson Flood MD PhD Unavailable [phone] Santiago Bey MD Primary Care Provider Fransisca Macedo RN Unavailable UnavailAnton Romano Unavailable Unavailable Yordan Arboleda MD Unavailable [phone] Active Problems Problem Noted Date Diagnosed Date [...] QTc 492 ms -PFTs scheduled with his yoke setter in Mar 2025 -Annual eye exams Assessment & Plan (08/14/2024 2:18 PM SUIT ATTENDANT): -High burden PVCs - 25% per Holter [...] QTc 494 ms -PFTs scheduled with his yoke setter in Mar 2025 Assessment & Plan (06/05/2024 4:22 PM SUIT ATTENDANT): -High burden PVCs - 25% per recent [...] 12/04/2021 Assessment & Plan (07/01/2022 2:16 PM SUIT ATTENDANT): Stable without detachment. No high risk characteristics. [...] began on Tuesday while he was at mosque. Symptoms improved with PRN Tylenol. Reports no chronic history of headaches. 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 -Neurology consulted (appreciate recs): OSH CT head uploaded to [employer]; s/p Headache cocktail: tylenol 650, compazine 5 [...] EP will be available by phone at [phone]. -tele Assessment & Plan (11/24/2021 11:07 AM CDT): Patient presented with severe headache and occasional flashes of light in both eyes (but no visual acuity changes) which began on Tuesday while he was at mosque. Symptoms improved with PRN Tylenol. Reports no chronic history of headaches. 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 -FONG has resolved--appreciate Neurology assistance -Neurology consulted (appreciate recs): OSH CT head uploaded to [employer]; s/p Headache cocktail: tylenol 650, compazine 5 [...] EP will be available by phone at [phone]. -tele Assessment & Plan (11/23/2021 9:59 AM CDT): Patient presented with severe headache and occasional flashes of light in both eyes (but no visual acuity changes) which began on Tuesday while he was at mosque. Symptoms improved with PRN Tylenol. Reports no chronic history of headaches. -Head CT at OSH ([facility] in [place]) on 11/17/21 with no acute intracranial [...] EP will be available by phone at [phone]. Assessment & Plan (11/22/2021 12:42 PM CDT): Patient presented with severe headache and occasional flashes of light in both eyes (but no visual acuity changes) which began on Tuesday while he was at mosque. Symptoms improved with PRN Tylenol. Reports no chronic history of headaches. -Head CT at OSH ([facility] in [place], [place]) on 11/17/21 with no acute intracranial [...] EP will be available by phone at [phone]. Assessment & Plan (11/21/2021 11:40 AM CDT): Patient presented with severe headache and occasional flashes of light in both eyes (but no visual acuity changes) which began on Tuesday while he was at mosque. Symptoms improved with PRN Tylenol. Reports no chronic history of headaches. -Head CT at OSH ([facility] [place]) on 11/17/21 with no acute intracranial [...] EP will be available by phone at [phone]. Assessment & Plan (11/20/2021 12:21 PM CDT): Patient presented with severe headache and occasional flashes of light in both eyes (but no visual acuity changes) which began on Tuesday while he was at mosque. Symptoms improved with PRN Tylenol. Reports no chronic history of headaches. -Head CT at OSH ([facility] [place]) on 11/17/21 with no acute intracranial [...] EP will be available by phone at [phone]. Assessment & Plan (11/19/2021 10:28 AM CDT): [...] observe. Assessment & Plan (07/17/2021 11:21 AM SUIT ATTENDANT): OS>OD, accounting for visual complaints. yag cap [...] with QRS duration 184 ms. We discussed BAND MAKER-D upgrade to primary prevention and cardiac resynchronization. He does not wish to undergo any procedures and continues to decline ICD/BAND MAKER. -Follow up with Dr Villavicencio Assessment & Plan (08/14/2024 2:20 PM SUIT ATTENDANT): -LVEF<35% despite GDMT, repeatedly declines ICD or BAND MAKER-P upgrade -Follow up with Dr Villavicencio Assessment & Plan (06/05/2024 4:19 PM SUIT ATTENDANT): -LVEF<35% despite GDMT, repeatedly declines ICD or BAND MAKER Prostate cancer 11/28/2018 Primary open angle glaucoma [...] OCT. Assessment & Plan (07/01/2022 2:16 PM SUIT ATTENDANT): IOP acceptable on 1 class OU. Stable [...] ck. Assessment & Plan (07/17/2021 11:20 AM SUIT ATTENDANT): IOP excellent today on 1 class. No [...] Avendano Assessment & Plan (07/16/2020 11:47 AM SUIT ATTENDANT): - IOP great today on 1 class (Xal at bedtime (qHS) OU) - Continue Xal at bedtime (qHS) OU for now. Following CEIOL OD, plan to update glaucoma screening and consider trial off Xal. Assessment & Plan (06/11/2020 7:21 AM SUIT ATTENDANT): - Continue Xal at bedtime (qHS) OU [...] CE/IOL. Assessment & Plan (07/10/2019 2:59 PM SUIT ATTENDANT): Stable on OCT and VF today. IOP acceptable on 1 class. CPM with latanoprost monotherapy. F/u in 6 months for IOP ck. Assessment & Plan (12/01/2018 2:55 PM CDT): IOP acceptable on latanoprost QHS OU. CPM. Due for testing in April. RTC X 5-6 months for 24-2 VF + RNFL OCT + DFE Assessment & Plan (05/09/2018 2:18 PM SUIT ATTENDANT): IOP borderline high on 1 class. VF [...] dependent Assessment & Plan (08/14/2024 2:19 PM SUIT ATTENDANT): -Complete heart block post TAVR s/p dual chamber pacemaker 09/02/2016 -Patient is not pacemaker dependent Assessment & Plan (06/05/2024 4:18 PM SUIT ATTENDANT): -Complete heart block post TAVR s/p dual chamber pacemaker 09/02/2016 -Patient is not pacemaker dependent Presence of cardiac pacemaker 12/20/2017 Assessment & Plan (02/12/2025 2:06 PM CDT): -Dual chamber pacemaker is functioning appropriately as programmed -Lead impedances, sensing, and thresholds are stable -No programming changes -Continue remote monitoring quarterly Assessment & Plan (08/14/2024 2:19 PM SUIT ATTENDANT): -Dual chamber pacemaker is functioning appropriately as programmed -Lead impedances, sensing, and thresholds are stable -No programming changes -Continue remote monitoring quarterly Assessment & Plan (06/05/2024 4:17 PM SUIT ATTENDANT): -Dual chamber pacemaker is functioning appropriately as [...] -Accuchecks Assessment & Plan (07/17/2021 11:22 AM SUIT ATTENDANT): dfe at f/u in 4 mos. Assessment & Plan (03/13/2021 10:46 AM CDT): No DFE today. No retinopathy on DFE at last visit. F/u with annual DFE. Assessment & Plan (11/07/2020 11:39 AM CDT): No diabetic retinopathy on dilated exam today. Stressed the importance of glycemic control in preventing diabetic eye disease. Assessment & Plan (07/16/2020 11:48 AM SUIT ATTENDANT): - No DR/DME on DFE today - Continue good BP/BG management - Annual DFEx Assessment & Plan (03/11/2020 12:34 PM CDT): - No DR/DME - Continue good BP/BG control - Annual DFEx Assessment & Plan (01/28/2020 11:58 AM CDT): Last DFE in 06/2019. No diabetic retinopathy at that time. Glycemic control. Assessment & Plan (07/10/2019 2:59 PM SUIT ATTENDANT): No diabetic retinopathy on dilated exam today. Stressed the importance of glycemic control in preventing diabetic eye disease. 2 Assessment & Plan (12/01/2018 2:55 PM CDT): Hx of poor control, no hx of retinopathy, due for dfe next visit. RTC in 5-6 months for DFE. Assessment & Plan (05/09/2018 2:18 PM SUIT ATTENDANT): Stressed the importance of glycemic control in [...] (09/12/2020): Added automatically from request for surgery [id number] S/P cataract extraction, left 06/06/2020 03/13/2021 Assessment & Plan (10/08/2020 12:04 PM CDT): - Doing well (target -1.00 OS for mini-monovision) - MRx at next visit Assessment & Plan (07/16/2020 11:46 AM SUIT ATTENDANT): POM #1 status post (s/p) CEIOL OS - Doing well off drops (gtts). Spherical equivalent of -0.75 is close to refractive target of -1.00 OS. 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 Assessment & Plan (06/11/2020 11:05 AM SUIT ATTENDANT): - Visually significant but patient wishes to [...] invasive. Assessment & Plan (07/10/2019 2:59 PM SUIT ATTENDANT): Worsening objective and subjective vision. Pt still wants to wait on CE/IOL consult. Provided information regarding cataracts and cataract surgery. Will re-visit at f/u in 6 mos. Assessment & Plan (12/01/2018 2:56 PM CDT): Visually significant. Discussed cataract evaluation vs observation. Pt elects observation at present. Re-evaluate x 6 months at pt request. Assessment & Plan (05/09/2018 2:18 PM SUIT ATTENDANT): Visually significant. Not functionally limiting per patient. Call for cat eval prn. Assessment & Plan (01/03/2018 1:14 PM CDT): Offered consult. Pt elects observation at present.
--- OUTSIDE RECORDS SUMMARY | 2025-04-02 15:47 | XMS_ITS | Encounter Summary ---
Author Organization [facility] Address [address] [place] [address] Care Team Providers Care Shipping Assistant Name Role Phone Contreras Robbins MD Unavailable [phone] [facility] Campus[facility]lyson leon MD PhD Unavailable [phone] Santiago Bey MD Primary Care Provider Fransisca Macedo RN Unavailable UnavailAnton Romano Unavailable Unavailable Yordan Arboleda MD Unavailable [phone] Encounter Details Date Type Department Care Team (Late st Contact Info) Description 04/01/2025 TCC Initial Outreach [facility] [place] [address] Arpan Rothman RN Social History [...] often do you attend chur ch or druze services? 1 to 4 times per year [...] any time in the past 12 m [facility], were you homeless or living in a skilled nursing (including now)? No 03/27/2025 [facility] Utilities Answer Date Recorded In the [...] on file Legal Sex Male 11:34 PM CARE ASSISTANT Gender Identity Not on file Sexual Orientation Not on file documented as of this encounter Progress Notes * Arpan Rothman RN - 04/01/2025 2:48 PM CDT Phone Call for Transitional Care Clinic (TCC) Discharge Date: 03/30/[address]: Discharge to home or self care Diagnosis: HF and COPD Patient's preferred phone number: [phone] Per: Masood Vela MD discharge summary dated 03/30/25 74 y.o. male Black Or with a PMHx significant for CHFrEF, HTN, HLD, AVR, cardiomyopathy,CHB-s/p pacemaker, PE, DM 2, CKD stage IIIB, prostate CA, epilepsy, COPD, restrictive lung disease, and PERI. Presents to the ED with a chief complaint of progressive SOB. Pt improved and is stable for discharge. :} CHF exacerbation, acute on chronic, HFrEF 25-30%: - Pt transitioned from iv Lasi to PO bumex. - Patient on optimal (GDMT) medical therapy as toleratted - Will continue to monitor Pt's progress. :} H/o AVR, bioprosthetic valve :} Hypertension : Will continue the Pt's home meds as addressed on the active medlist. Will continue to monitor the Pt's BP and adjust the meds as needed. :} DM type 2 (A1c 6.7): Will hold the Pt's oral medications while in the hospital. Pt will be put on Humalog s/s. Will continue to monitor the BS. :} Chronic Kidney Disease Stage 3 : Pt creatinine is at the baseline. Will continue to monitor the Pt's creatinine. :} Suspicion for Parkinson's disease, recommend outpatient neuro eval, discussed with the patient and daughter :} Obstructive sleep apnea: Will continue CPAP as per RT protocol. Discharged Condition: stable Consults: cardiology TCC Outreach: Called at the number listed and spoke with Kavita, his . He was taking a nap. Shesaid he is doing fine. She denied any new or worsening shortness of breath, or swelling in his feetor legs. He has an appointment to see his PCP tomorrow. We provided the TCC contact information, and encouraged Kavita and Ceferino to reach out with any questions, issues or concerns. Kavita said that sounds nice. Medications: PAUSE taking these medications: irbesartan 75 mg tablet Wait to take this until your doctor or other care provider tells you to start again. supervisor wash house these medications at [facility]/pharmacy #[id number] - [place] [address] atorvastatin bumetanide Appointments: Follow up with Santiago Bey MD Specialty: Family Practice, Family Medicine Follow up with established provider: 1 week [address] [facility] [address] [place] [address] Follow up with Yordan Arboleda MD Specialty: Cardiology, Interventional Cardiology, Cardiovascular Disease, Internal Medicine Follow up with established provider: [address] [place] [address] [address] [facility] [address] Future Appointments Date Time Provider Department Center 04/12/2025 1:15 PM PFT 7 CAM 8D PFT CAM 8D [facility] Pulmonary 04/12/2025 2:00 PM Contreras Robbins MD PUL CAM 8B [facility] Pulmonary 04/16/2025 10:15 AM GOLD CAZARES CUSTOMER MARKETING ASSISTANT/-CAM 8B CARTXP CAM8B Cardiology 06/04/2025 11:30 AM Stephanie Sierra MD PhD NM CAM 6C NL 06/11/2025 11:40 AM Jeff Valenzuela MD PhD EPI CAM 6C NL 08/20/2025 10:45 AM CARD DEVICE CHECK-CAM 8B CAR CAM 8B Cardiology 08/20/2025 11:15 AM Natalie Maher NP CAR CAM 8B Cardiology 09/27/2025 10:45 AM Teo Avendano OD GEN PRSH OP 12/09/2025 1:45 PM Carolina Resendez PA MDC CAM 6C NL 01/07/2026 11:30 AM Richa Duran MD SLEEP CTR 40 NL 01/14/2026 10:40 AM Nandini Tineo NP [facility] CAM 02/02/2027 11:30 AM Diana Grant MD MDC CAM 6C NL SDOH: Education/Assistance: documented in this encounter Plan of Treatment Not on file documented as of this encounter Visit Diagnoses Not on filedocumented in this encounter Care Teams Shipping Assistant Relationship Specialty Start Date End Date Santiago Bey MD [address] [place] [address] PCP - General Family Practice 01/05/22 Contreras Robbins MD Referring Physician Pulmonary Disease 01/16/19 Allyson Flood MD PhD [address] [place] [address] Consulting Physician Ophthalmology 10/03/20 Fransisca Macedo RN Registered Nurse Pulmonary Disease 04/06/23 Anton Omer Primary Telephone Diaphragm Assembler 03/14/25 Yordan Arboleda MD [address] [facility] [address] [place] [address] Consulting Physician Cardiology 03/30/25 documented as of this encounter
--- OUTSIDE RECORDS SUMMARY | 2025-04-02 15:47 | XMS_ITS | Encounter Summary ---
Author Organization [facility] Address [address] [place] [address] Phone Care Team Providers Care Filter Bed Placer Name Role Phone Cuco Chatman MD Primary Care Provider [phone] Contreras oRbbins MD Unavailable [phone] UtahAllyson MD PhD Unavailable [phone] Lenka Quezada SHIPWRIGHT Unavailable [phone] Santiago Bey MD Primary Care Provider Fransisca Macedo RN Unavailable UnavailAnton Romano Unavailable Unavailable Yordan Arboleda MD Unavailable [phone] Encounter Details Date Type Department Care Team [...] on file Legal Sex Male 11:34 PM SMUTTER Gender Identity Not on file Sexual Orientation [...] documented as of this encounter Care Teams Filter Bed Placer Relationship Specialty Start Date End Date Cuco Chatman MD [address] [place] [address] PCP - General 08/10/16 01/04/22 Santiago Bey MD [address] [place] [address] PCP - General Family Practice 01/05/22 Contreras Robbins MD [address] [place] [address] Referring Physician Pulmonary Disease 01/16/19 [facility] PhD [address] [place] [address] Consulting Physician Ophthalmology 10/03/20 Lenka Quezada NP [address] [place] [address] Intelligence Engineer 12/02/21 Fransisca Ballesteros RN Registered Nurse Pulmonary Disease 04/06/23 Anton Omer Primary Small Package And Bundle Sorter Clerk 03/14/25 Yordan Arboleda MD [address] [facility] [place] [address] Consulting Physician Cardiology 03/30/25 documented as of this encounter
[2025-04-02 19:07] LABS: Anion Gap 4 mmol/L (4-12); Blood Urea Nitrogen 18 mg/dL (9-20); Calcium 10.5 mg/dL (8.4-10.2); Carbon Dioxide 39 mmol/L (22-30); Chloride 95 mmol/L (98-107); Estimated Glomerular Filt Rate 43; Glucose 110 mg/dL (65-110); Potassium 4.1 mmol/L (3.4-5.0); Sodium 138 mmol/L (137-145)
== END 2025-04-02 14:52 | disposition home or self-care (01) ==
LOC: ANHGOSHLAB 14:52
PROVIDERS: PCP Family Medicine
DX: I50.43 Acute on chronic combined systolic (congestive) and diastolic (congestive) heart failure (principal)
CPT/HCPCS: 36415; 80048